=== PATIENT | male | born 1945 | race Caucasian/White ===

== ENCOUNTER 2019-08-16 12:24 | Inpatient (IN) ==
[2019-08-16 13:09] LABS: Basophils # (auto) 0.02 K/uL (0-0.2); Basophils % (auto) 0.2 %; Eosinophils # (auto) 0.19 K/uL (0-0.5); Hematocrit (blood only) 40.4 % (42-52); Hemoglobin 14.5 g/dL (14.0-18.0); Immature Granulocytes # (auto) 0.02 K/uL (0.00-0.02); Immature Granulocytes % (auto) 0.2 %; Lymphocytes # (auto) 2.05 K/uL (1.2-3.4); Lymphocytes % (auto) 21.1 %; Mean Corpuscular Hemoglobin 32.9 pg (25-34); Mean Corpuscular Hgb Conc 35.9 g/dL (32-36); Mean Corpuscular Volume 91.6 fL (80-100); Monocytes # (auto) 0.85 K/uL (0.11-0.59); Monocytes % (auto) 8.8 %; Neutrophils # (auto) 6.57 K/uL (1.4-6.5); Neutrophils % (auto) 67.7 %; Platelet Count 228 K/uL (130-400); RDW Coefficient of Variation 12.7 % (11.5-14.5); RDW Standard Deviation 42.9 fL (36.4-46.3); Red Blood Count 4.41 M/uL (4.7-6.1)
--- NOTE | 2019-08-16 13:18 | XRay Report ---
XR chest 1V portable HISTORY: Atypical Chest Pain COMPARISON: None. FINDINGS: The lungs are clear. Cardiac silhouette is mildly enlarged. No pleural effusions. No pneumo thorax. IMPRESSION: Mild cardiomegaly. Otherwise, no acute process within the chest. Electronically signed by: Clemente Jaramillo M.D. 08/16/2019 1:16 PM
[2019-08-16 13:19] LABS: Partial Thromboplastin Ratio 0.9; Partial Thromboplastin Time 24.5 Seconds (21.0-31.0)
[2019-08-16 13:20] LABS: Alanine Aminotransferase 43 U/L (12-78); Albumin Level 3.8 gm/dl (3.4-5.0); Aspartate Aminotransferase 22 U/L (15-37); BUN Creatinine Ratio 12.8 (10-20); Blood Urea Nitrogen 21 mg/dl (7-18); Calcium 8.5 mg/dl (8.5-10.1); Carbon Dioxide 25 mmol/L (21-32); Chloride 106 mmol/L (98-107); Creatinine Clr Calc Pharmacy 41.9 ml/min; Est GFR (African American) 47.7; Est GFR (Non-African American) 41.2; Glucose 121 mg/dl (70-99); Potassium 3.9 mmol/L (3.5-5.1); Sodium 134 mmol/L (136-145)
[2019-08-16 13:25] LABS: Albumin Globulin Ratio 1.2 (0.9-2); Alkaline Phosphatase 97 U/L (45-117); Bilirubin,Total 0.4 mg/dl (0.2-1); Globulin 3.3 gm/dl (2.5-4.0); Total Protein 7.1 gm/dl (6.4-8.2); Troponin I < 0.015 ng/ml (0-0.045)
[2019-08-16 13:37] LABS: Magnesium 2.2 mg/dl (1.8-2.4); Phosphorus 2.8 mg/dl (2.5-4.9)
[2019-08-16] MEDS ORDERED: GI COCKTAIL ED USE PO STA (15:04)
--- NOTE | 2019-08-16 15:39 | Emergency Department Note ---
Entered by Sammie Senior acting as a scribe for History of Present Illness General Chief complaint: Chest Pain Time Seen by Provider: 08/16/19 13:09 Source: patient History of Present Illness Onset (ago): day(s) 4 Location: chest Pain Consistency: + other (persistent) Maximum Pain Intensity: 5 Quality: + other (pressure) Associated symptoms: + denies other symptoms (diaphoresis, fever, chills, cough, congestion, nausea, vomiting, diarrhea, changes in appetite, or decrease in fluid uptake) and + other (shortness of breath with exertion, dizziness, lightheadedness) The patient is a 74 year old male that is presenting to the Emergency Room with complaints of persistent chest pressure that started 3-4 days ago. The patient reports that the pain worsened this morning which prompted him to come to the ED. He notes that he has been short of breath with exertion for the past 2 months. He denies any lifestyle changes prior to this. He denies any diaphoresis during these episodes. He states that he has been intermittently dizzy and lightheaded over the past month. He denies any recent fever, chills, cough, congestion, nausea, vomiting, diarrhea, changes in appetite, or decrease in fluid uptake. The patient reports that he has a history of an enlarged aorta. He notes that he had a US 5 days ago which showed that it was stable. He states that he is followed by Dr. Jordan, Cardiology. He denies any blood thinner use other than a baby aspirin daily. He denies any other significant heart history. He notes that he has not talked to his PCP about any of his symptoms. The patient reports that he takes Omeprazole for a history of GERD, and he denies that his current symptoms resemble past episodes of acid reflux. Home Medications Home Medications Medication Instructions Recorded Confirmed Type acetaminophen [Tylenol] 650 mg PO HS PRN 08/16/19 08/16/19 History aspirin 81 mg PO DAILY 08/16/19 08/16/19 History carvedilol [Coreg] 3.125 mg PO PM 08/16/19 08/16/19 History finasteride [Proscar] 5 mg PO HS 08/16/19 08/16/19 History lactobacillus combination no.4 3,000 mmu cells PO DAILY 08/16/19 08/16/19 History [Probiotic] lisinopril [Prinivil] 20 mg PO QAM 08/16/19 08/16/19 History irjmxcja-raz-HO-lycopen-lutein 1 tab PO DAILY 08/16/19 08/16/19 History [Centrum Silver Men] omeprazole 20 mg PO PM 08/16/19 08/16/19 History polyethylene glycol 3350 [Miralax] 17 g PO DAILY PRN 08/16/19 08/16/19 History pravastatin [Pravachol] 40 mg PO HS 08/16/19 08/16/19 History terazosin 5 mg PO HS 08/16/19 08/16/19 History Allergies Allergy/AdvReac Type Severity Reaction Status Date / Time morphine Allergy Unknown DECREASED Verified 08/16/19 14:43 BP Sulfa (Sulfonamide Allergy Unknown SICK, Verified 08/16/19 14:43 Antibiotics) FATIGUE Past Med/Surg History Medical History Aneurysm, ascending aorta (Chronic) 4.5 cm per [facility] echo 08/11/19 Benign prostatic hyperplasia (Chronic) GERD (gastroesophageal reflux disease) (Chronic) Dyslipidemia (Chronic) Hypertension (Chronic) Esophageal dysmotility (Chronic 02/23/12) Family History Mother Heart disease Breast cancer Father Heart disease Social History Preferred Language: Fijian Communication Ability: Effective Beliefs That Will Affect Care: None marital status: Current Living Situation: Spouse current occupational status: retired Other Information That Helps Us Care for You: No Feels Safe at Home: Yes Safety Concerns: Feels Safe At This Time Smoking Status: Former smoker Hx Alcohol Use: No Hx Substance Use: No Review of Systems See HPI for pertinent positives & negatives. and A total of 10 systems reviewed and were otherwise negative Physical Exam Vital Signs Vital Signs - 24 hr 08/16/19 12:33 08/16/19 12:53 08/16/19 12:56 Temperature 36.8 C Temperature Source Oral Sepsis Recent Fever Within 48 Hours No Sepsis New/Unexplained Change in Mental Status No Sepsis Action Taken by Nursing No Action Required Pulse Rate 96 H 90 Pulse Rate [Apical] Respiratory Rate 20 22 20 Respiratory Effort / Characteristics Non-Labored Spontaneous Blood Pressure 140/93 108/78 Blood Pressure [Left Arm] Blood Pressure Mean 108 88 Blood Pressure Mean [Left Arm] Blood Pressure Position Lying Pulse Oximetry 97 Oxygen Delivery Method Room Air 08/16/19 13:00 08/16/19 13:03 08/16/19 13:10 Temperature Temperature Source Sepsis Recent Fever Within 48 Hours Sepsis New/Unexplained Change in Mental Status Sepsis Action Taken by Nursing Pulse Rate 90 91 H Pulse Rate [Apical] 90 Respiratory Rate 19 Respiratory Effort / Characteristics Blood Pressure 135/81 Blood Pressure [Left Arm] 135/81 Blood Pressure Mean 99 Blood Pressure Mean [Left Arm] 99 Blood Pressure Position Pulse Oximetry 95 Oxygen Delivery Method 08/16/19 13:20 08/16/19 13:30 08/16/19 13:40 Temperature Temperature Source Sepsis Recent Fever Within 48 Hours Sepsis New/Unexplained Change in Mental Status Sepsis Action Taken by Nursing Pulse Rate 92 H 88 Pulse Rate [Apical] Respiratory Rate 21 14 25 H Respiratory Effort / Characteristics Blood Pressure Blood Pressure [Left Arm] Blood Pressure Mean Blood Pressure Mean [Left Arm] Blood Pressure Position Pulse Oximetry Oxygen Delivery Method 08/16/19 13:50 08/16/19 14:00 08/16/19 14:10 Temperature Temperature Source Sepsis Recent Fever Within 48 Hours Sepsis New/Unexplained Change in Mental Status Sepsis Action Taken by Nursing Pulse Rate 87 88 86 Pulse Rate [Apical] Respiratory Rate 22 27 H 23 Respiratory Effort / Characteristics Blood Pressure 117/82 Blood Pressure [Left Arm] Blood Pressure Mean 93 Blood Pressure Mean [Left Arm] Blood Pressure Position Pulse Oximetry Oxygen Delivery Method 08/16/19 14:24 08/16/19 14:30 08/16/19 14:40 Temperature Temperature Source Sepsis Recent Fever Within 48 Hours Sepsis New/Unexplained Change in Mental Status Sepsis Action Taken by Nursing Pulse Rate 82 88 74 Pulse Rate [Apical] Respiratory Rate 22 18 Respiratory Effort / Characteristics Blood Pressure Blood Pressure [Left Arm] Blood Pressure Mean Blood Pressure Mean [Left Arm] Blood Pressure Position Pulse Oximetry Oxygen Delivery Method 08/16/19 14:50 08/16/19 15:00 08/16/19 15:10 Temperature Temperature Source Sepsis Recent Fever Within 48 Hours Sepsis New/Unexplained Change in Mental Status Sepsis Action Taken by Nursing Pulse Rate 82 79 75 Pulse Rate [Apical] Respiratory Rate 19 15 21 Respiratory Effort / Characteristics Blood Pressure Blood Pressure [Left Arm] Blood Pressure Mean Blood Pressure Mean [Left Arm] Blood Pressure Position Pulse Oximetry Oxygen Delivery Method 08/16/19 15:20 08/16/19 15:30 08/16/19 15:40 Temperature Temperature Source Sepsis Recent Fever Within 48 Hours Sepsis New/Unexplained Change in Mental Status Sepsis Action Taken by Nursing Pulse Rate 83 88 Pulse Rate [Apical] Respiratory Rate 15 20 23 Respiratory Effort / Characteristics Blood Pressure Blood Pressure [Left Arm] Blood Pressure Mean Blood Pressure Mean [Left Arm] Blood Pressure Position Pulse Oximetry Oxygen Delivery Method 08/16/19 15:50 Temperature Temperature Source Sepsis Recent Fever Within 48 Hours Sepsis New/Unexplained Change in Mental Status Sepsis Action Taken by Nursing Pulse Rate 90 Pulse Rate [Apical] Respiratory Rate 13 Respiratory Effort / Characteristics Blood Pressure Blood Pressure [Left Arm] Blood Pressure Mean Blood Pressure Mean [Left Arm] Blood Pressure Position Pulse Oximetry Oxygen Delivery Method GENERAL: Awake, alert, well-appearing, in no distress HENT: Normocephalic, atraumatic. Oropharynx with dry mucous membranes and otherwise unremarkable. EYES: Normal conjunctiva. Sclera non-icteric. NECK: Supple. No nuchal rigidity. FROM. No JVD. RESPIRATORY: CTA bilaterally. CARDIAC: Regular rate, normal rhythm. Extremities warm and well perfused. Pulses equal. ABDOMEN: Soft, non-distended. No tenderness to palpation. No rebound or guarding. No masses. RECTAL: Deferred. MUSCULOSKELETAL: Chest examination reveals no tenderness. The back is symmetrical on inspection without obvious abnormality. There is no CVA tenderness to palpation. No joint edema. LOWER EXTREMITIES: Calves are equal size bilaterally and non-tender. No edema. No discoloration. NEURO: Normal sensorium. No sensory or motor deficits noted. SKIN: No rash or jaundice noted. Course 1408:The patient was evaluated in room C08. A complete history and physical examination was performed. 1454: I discussed the patients case with Kelsey Ruby, who will evaluate the patient for further management and care. 1515: Upon reevaluation, the patient is resting comfortably. I discussed labo ratory and radiographic results with the patient. He verbalized agreement of the treatment plan. The patient will be evaluated for further management and care. Administered Medications Carvedilol (Coreg) 3.125 mg PO DAILY@17 JUN Stop: 09/15/19 17:50 Last Admin: 08/16/19 20:40 Dose: 3.125 mg Documented by: [id number] Finasteride (Proscar) 5 mg PO HS JUN Stop: 09/15/19 20:59 Last Admin: 08/16/19 20:08 Dose: 5 mg Documented by: [id number] Heparin Sodium (Porcine) (Heparin Sodium (Porcine)) 5,000 units SQ Q12 JUN Stop: 09/15/19 20:59 Last Admin: 08/16/19 20:09 Dose: 5,000 units Documented by: [id number] Cosigned by: [id number] Sodium Chloride (Nss 1000ml) 1,000 mls @ 80 mls/hr IV .[id number] JUN Stop: 09/15/19 20:59 Last Admin: 08/16/19 20:09 Dose: 80 mls/hr Documented by: [id number] Pantoprazole Sodium (Protonix) 40 mg PO QAM JUN Stop: 09/15/19 17:50 Last Admin: 08/16/19 20:08 Dose: 40 mg Documented by: [id number] Pravastatin Sodium (Pravachol) 40 mg PO HS JUN Stop: 09/15/19 20:59 Last Admin: 08/16/19 20:08 Dose: 40 mg Documented by: [id number] Terazosin HCl (Hytrin) 5 mg PO HS JUN Stop: 09/15/19 20:59 Last Admin: 08/16/19 20:08 Dose: 5 mg Documented by: [id number] Discontinued Medications Al Hydrox/Mg Hydrox/Simethicone () 1 dose PO NOW STA Stop: 08/16/19 15:05 Last Admin: 08/16/19 15:10 Dose: 1 dose Documented by: [id number] Medical Decision Making Differential Diagnosis Differential diagnoses includes but is not limited to acute coronary syndrome, myocardial infarction, pericarditis, pulmonary embolus, aortic dissection, pneumonia, pneumothorax, musculoskeletal, shingles, esophageal. Medical Records Attestation: I reviewed the patient's medical records. Home Medications Current Medication List: was personally reviewed by me Laboratory Data Attestation: I reviewed the patient's lab results. Result diagrams: 08/16/19 12:57 08/16/19 12:57 Lab Results 08/16/19 08/16/19 08/16/19 Range/Units 12:57 12:57 12:57 WBC 9.70 (4.8-10.8) K/uL RBC 4.41 L (4.7-6.1) M/uL Hgb 14.5 (14.0-18.0) g/dL Hct 40.4 L (42-52) % MCV 91.6 (80-100) fL MCH 32.9 (25-34) pg MCHC 35.9 (32-36) g/dL RDW Std Deviation 42.9 (36.4-46.3) fL RDW Coeff of Ibrahima 12.7 (11.5-14.5) % Plt Count 228 (130-400) K/uL MPV 9.0 (7.4-10.4) fL Immature Gran % (Auto) 0.2 % Neut % (Auto) 67.7 % Lymph % (Auto) 21.1 % Graham % (Auto) 8.8 % Eos % (Auto) 2.0 % Baso % (Auto) 0.2 % Immature Gran # (Auto) 0.02 (0.00-0.02) K/uL Neut # (Auto) 6.57 H (1.4-6.5) K/uL Lymph # (Auto) 2.05 (1.2-3.4) K/uL Graham # (Auto) 0.85 H (0.11-0.59) K/uL Eos # (Auto) 0.19 (0-0.5) K/uL Baso # (Auto) 0.02 (0-0.2) K/uL PT 10.0 (9.0-12.0) Seconds INR 1.0 (0.9-1.1) APTT 24.5 (21.0-31.0) Seconds PTT Ratio 0.9 Sodium 134 L (136-145) mmol/L Potassium 3.9 (3.5-5.1) mmol/L Chloride 106 (98-107) mmol/L Carbon Dioxide 25 (21-32) mmol/L Anion Gap 3.0 (3-11) BUN 21 H (7-18) mg/dl Creatinine 1.63 H (0.6-1.4) mg/dl Est Cr Clr Drug Dosing 41.9 ml/min Est GFR ( Amer) 47.7 Est GFR (Non-Af Amer) 41.2 BUN/Creatinine Ratio 12.8 (10-20) Glucose 121 H (70-99) mg/dl Calcium 8.5 (8.5-10.1) mg/dl Phosphorus (2.5-4.9) mg/dl Magnesium (1.8-2.4) mg/dl Total Bilirubin 0.4 (0.2-1) mg/dl AST 22 (15-37) U/L ALT 43 (12-78) U/L Alkaline Phosphatase 97 (45-117) U/L Troponin I < 0.015 (0-0.045) ng/ml Total Protein 7.1 (6.4-8.2) gm/dl Albumin 3.8 (3.4-5.0) gm/dl Globulin 3.3 (2.5-4.0) gm/dl Albumin/Globulin Ratio 1.2 (0.9-2) 08/16/19 Range/Units 12:57 WBC (4.8-10.8) K/uL RBC (4.7-6.1) M/uL Hgb (14.0-18.0) g/dL Hct (42-52) % MCV (80-100) fL MCH (25-34) pg MCHC (32-36) g/dL RDW Std Deviation (36.4-46.3) fL RDW Coeff of Ibrahima (11.5-14.5) % Plt Count (130-400) K/uL MPV (7.4-10.4) fL Immature Gran % (Auto) % Neut % (Auto) % Lymph % (Auto) % Graham % (Auto) % Eos % (Auto) % Baso % (Auto) % Immature Gran # (Auto) (0.00-0.02) K/uL Neut # (Auto) (1.4-6.5) K/uL Lymph # (Auto) (1.2-3.4) K/uL Graham # (Auto) (0.11-0.59) K/uL Eos # (Auto) (0-0.5) K/uL Baso # (Auto) (0-0.2) K/uL PT (9.0-12.0) Seconds INR (0.9-1.1) APTT (21.0-31.0) Seconds PTT Ratio Sodium (136-145) mmol/L Potassium (3.5-5.1) mmol/L Chloride (98-107) mmol/L Carbon Dioxide (21-32) mmol/L Anion Gap (3-11) BUN (7-18) mg/dl Creatinine (0.6-1.4) mg/dl Est Cr Clr Drug Dosing ml/min Est GFR ( Amer) Est GFR (Non-Af Amer) BUN/Creatinine Ratio (10-20) Glucose (70-99) mg/dl Calcium (8.5-10.1) mg/dl Phosphorus 2.8 (2.5-4.9) mg/dl Magnesium 2.2 (1.8-2.4) mg/dl Total Bilirubin (0.2-1) mg/dl AST (15-37) U/L ALT (12-78) U/L Alkaline Phosphatase (45-117) U/L Troponin I (0-0.045) ng/ml Total Protein (6.4-8.2) gm/dl Albumin (3.4-5.0) gm/dl Globulin (2.5-4.0) gm/dl Albumin/Globulin Ratio (0.9-2) Imaging Data Radiologist's Impression: Radiology results as stated below per my review and the radiologist's interpretation: XR chest 1V portable HISTORY: Atypical Chest Pain COMPARISON: None. FINDINGS: The lungs are clear. Cardiac silhouette is mildly enlarged. No pleural effusions. No pneumothorax. IMPRESSION: Mild cardiomegaly. Otherwise, no acute process within the chest. Electronically signed by: Clemente Jaramillo M.D. 08/16/2019 1:16 PM ECG Data Attestation: I personally reviewed and interpreted this ECG as follows: Indication: chest pain Rate (beats per minute): 88 Rhythm: normal sinus Findings: + other (left anterior fascicular block, QTC 423, QRS 86); no PAC, no PVC, no ST depression, no ST elevation, no acute ischemic change and no ectopy Blood Pressure Blood Pressure Findings: Elevated blood pressure Blood Pressure Disposition: Referred to patients primary care provider MDM Narrative The patient is a pleasant 74-year-old gentleman with a past medical history of aortic enlargement, hypertension, hyperlipidemia who presents emergency department with constant chest pressure for the past 4 days in the setting of reporting approximately 2 months of worsening dyspnea and chest pressure on exertion per hpi. Of note, the patient did have a recent surveillance echo for surveillance of his aorta which was stable with a mildly enlarged aortic root at 4.0 cm and ascending aorta moderate the enlarged at 4.5 cm. His EF was normal with mildly abnormal (grade 1) left ventricular diastolic function. Of note, the patient does have a history of reflux which he reports does not feel like this usually. On arrival patient is no acute distress, afebrile with stable vital signs. This time the patient reports marginal presence of his chest pressure. Exam is unremarkable. EKG with left anterior fascicular block with QRS of 86. No overt acute ischemia. QRS is 86 with QTC of 423. Morphology of EKG is different from our last EKG in 2016. Chest x-ray negative for acute p rocess. BBC, hemoglobin, platelets within normal limits. Chemistry without acidosis. Creatinine 1.6 in the setting of history of CKD without recent values for comparison in our EMR. Troponin negative/undetectable in the setting of patient's report of constant pressure over the past 4 days. Electrolytes and LFTs unremarkable. Patient did report subtle "presence" of his chest pressure that was barely noticeable, which did not seem cardiac and was give trial of GI cocktail considering his h/o GERD. Otherwise, Heart score 7, high risk, thus reasonable to proceed with admission. I did discuss with the patient the concern surrounding his relatively new (over the past 2 months) but progressive exertional shortness of breath and chest pressure that he should be admitted to the hospital for further cardiac evaluation. Patient was agreeable with this. Case was discussed with Dr. Ly, [facility] hospitalist, who will evaluate the patient for admission. Impression & Plan Exertional chest pain, Enlarged aorta, History of hypertension, Left anterior fascicular block Discharge Plan Visit Data *Final* Discharge Date/Time: 08/16/19 17:20 Chief Complaint: Chest Pain ED Provider: Grant Green Discharge Problem: Exertional chest pain, Enlarged aorta, History of hypertension, Left anterior fascicular block Patient Disposition: Admitted As Inpatient Discharge Instructions Interventions: ED Discharge Assessment Last Done: 08/16/19 17:20 The scribe's documentation has been prepared under my direction and personally reviewed by me in its entirety. I confirm that the note above accurately reflects all work, treatment, procedures, and medical decision making performed by me.
--- NOTE | 2019-08-16 15:58 | History & Physical Report ---
Date of Service August 16, 2019 Assessment & Plan (1) Chest pain: Patient has been experiencing chest pain for at least couple weeks and perhaps longer. Pattern of symptoms sometimes seems to be related to exertion, but not always. History of esophageal dysmotility and GERD which could be contributing factors. However, patient has multiple risk factors for ischemic heart disease including hypertension and dyslipidemia. No acute changes on EKG. Troponin I in ED normal. Patient has known aneurysm of ascending aorta, but symptoms do not suggest dissection, carotid and peripheral pulses are symmetric, and echocardiogram last week was stable. Pain is not pleuritic in nature and symptoms do not suggest pulmonary embolism. Check serial cardiac markers. Check lipid profile. Consult Cardiology. Consider further GI evaluation once cardiac issues are addressed. (2) Aneurysm, ascending aorta: Followed by Cardiology. Echo last week showed stable aneurysm measuring 4.5 cm. Continue management of blood pressure and lipids. Ongoing follow-up per Cardiology. (3) GERD (gastroesophageal reflux disease): History of GERD. Continue PPI. (4) Esophageal dysmotility: History of esophageal dysmotility, noted in 2011. Current symptoms may or may not be related. Consider follow-up evaluation and perhaps [employer] SOLUTION ARCHITECT evaluation/recommendations regarding diet and swallowing technique. (5) Hypertension: Continue carvedilol, lisinopril, terazosin. (6) Dyslipidemia: Check lipid profile. Continue pravastatin. (7) Benign prostatic hyperplasia: Continue terazosin and finasteride. (8) DVT prophylaxis: SQ heparin. Ambulate. (9) Discharge planning issues: Anticipated discharge to home. Family Medicine follow-up with Dr. Lopez. Cardiology follow-up with Dr. Jordan. History of Present Illness Chief Complaint: chest pressure Primary Care Provider: Joe Lopez MD 74-year-old male followed by Dr. Lopez for Family Medicine and Dr. Jordan for Cardiology. History of hypertension, dyslipidemia, aneurysm of ascending aorta, GERD, and esophageal dysmotility. He has been experiencing chest pressure for the last 2 weeks or so. Chest pressure described as non-radiating midsternal pressure, sometimes associated with exertion, and sometimes not. Feels dyspneic at times, and dyspnea seems worse when he is experiencing the chest pressure. No associated palpitations, nausea, vomiting, diaphoresis. Symptoms not obviously related to food. He increased his omeprazole from 3 times a week dosing to every day, but continued to have symptoms. This morning he noticed some chest pressure when he awakened from sleep. He drank a cup of coffee and then went shopping. After returning from shopping, he noticed worsening chest pressure associated with some dyspnea and lightheadedness. He came to the ED for evaluation. There, he received a GI cocktail without much immediate improvement of his symptoms. At the time of my assessment, the chest pressure was significantly improved, rated as 2/10. An echocardiogram was performed at [facility] on 08/11/2019 and demonstrated aortic root measuring 4.0 cm, stable aneurysm of aortic aneurysm measuring 4.5 cm, LVEF of 60/64%, and grade 1 diastolic dysfunction. Allergies Allergy/AdvReac Type Severity Reaction Status Date / Time morphine Allergy Unknown DECREASED Verified 08/16/19 14:43 BP Sulfa (Sulfonamide Allergy Unknown SICK, Verified 08/16/19 14:43 Antibiotics) FATIGUE Home Medications Home Medications Medication Instructions Recorded Confirmed Type acetaminophen [Tylenol] 650 mg PO HS PRN 08/16/19 08/16/19 History aspirin 81 mg PO DAILY 08/16/19 08/16/19 History carvedilol [Coreg] 3.125 mg PO PM 08/16/19 08/16/19 History finasteride [Proscar] 5 mg PO HS 08/16/19 08/16/19 History lactobacillus combination no.4 3,000 mmu cells PO DAILY 08/16/19 08/16/19 History [Probiotic] lisinopril [Prinivil] 20 mg PO QAM 08/16/19 08/16/19 History goaowoyu-yvd-OX-lycopen-lutein 1 tab PO DAILY 08/16/19 08/16/19 History [Centrum Silver Men] omeprazole 20 mg PO PM 08/16/19 08/16/19 History polyethylene glycol 3350 [Miralax] 17 g PO DAILY PRN 08/16/19 08/16/19 History pravastatin [Pravachol] 40 mg PO HS 08/16/19 08/16/19 History terazosin 5 mg PO HS 08/16/19 08/16/19 History Past Med/Surg History Medical History Aneurysm, ascending aorta (Chronic) 4.5 cm per [facility] echo 08/11/19 Benign prostatic hyperplasia (Chronic) GERD (gastroesophageal reflux disease) (Chronic) Dyslipidemia (Chronic) Hypertension (Chronic) Esophageal dysmotility (Chronic 02/23/12) Family History Mother Heart disease Breast cancer Father Heart disease Social History Preferred Language: Greek Communication Ability: Effective Beliefs That Will Affect Care: None marital status: Current Living Situation: Spouse current occupational status: retired Other Information That Helps Us Care for You: No Feels Safe at Home: Yes Safety Concerns: Feels Safe At This Time Smoking Status: Former smoker Hx Alcohol Use: No Hx Substance Use: No Review of Systems Constitutional: no fever and no weight loss Eyes: no diplopia and no worsening vision Ear, Nose, Mouth, Throat: + nasal congestion; no sore throat Respiratory: + dyspnea; no cough Cardiovascular: as per Subjective / HPI Gastrointestinal: no nausea, no vomiting, no constipation, no diarrhea/loose stools, no blood in stools and no melena Musculoskeletal: + joint pain; no myalgia Integumentary: no rash and no new lesions Neurologic: no headache(s) Endocrine: no polydipsia and no polyuria Hematologic / Lymphatic: + easy bruising; no easy bleeding and no lymphadenopathy Physical Exam Constitutional: WD/WN, vitals as above no acute distress Eyes: PERRL, conjunctivae normal, anicteric sclerae ENMT: external ear and nose normal, oropharynx normal Mouth: + dentition abnormality ( edentulous) Neck: trachea midline, no thyromegaly Respiratory: normal respiratory effort, lungs clear to auscultation Cardiovascular: Rate/Rhythm: regular rate Heart Sounds: no gallop, no murmur and no cardiac rub Vessels: no JVD Extremities: normal capillary refill (toes < 2 sec); no calf tenderness and no edema carotid and peripheral pulses intact and symmetric Gastrointestinal (Abdomen): normal bowel sounds, soft, nontender, no hepatosplenomegaly Musculoskeletal: Head/Neck/Chest: neck supple Extremities: strength 5/5 throughout; no cyanosis and no clubbing Skin: no rashes, warm and dry Neurologic: PERRL, EOMI no facial palsy no dysarthria or aphasia patellar DTR's 1/2 bilat Psychiatric: Orientation: alert and oriented x 3 Affect: euthymic affect Lymphatic: no cervical lymphadenopathy Results & Data Vital Signs (Past 12 Hours) Vital Signs Temp Pulse Pulse Resp BP BP Pulse Ox 08/16/19 15:30 83 20 08/16/19 15:20 15 08/16/19 15:10 75 21 08/16/19 15:00 79 15 08/16/19 14:50 82 19 08/16/19 14:40 74 08/16/19 14:30 88 18 08/16/19 14:24 82 22 08/16/19 14:10 86 23 08/16/19 14:00 88 27 H 117/82 08/16/19 13:50 87 22 08/16/19 13:40 88 25 H 08/16/19 13:30 92 H 14 08/16/19 13:20 21 08/16/19 13:10 91 H 08/16/19 13:03 90 19 135/81 95 08/16/19 13:00 90 135/81 08/16/19 12:56 20 108/78 08/16/19 12:53 90 22 08/16/19 12:33 36.8 C 96 H 20 140/93 97 Laboratory Results Laboratory Results - last 24 hr 08/16/19 08/16/19 08/16/19 12:57 12:57 12:57 WBC 9.70 RBC 4.41 L Hgb 14.5 Hct 40.4 L MCV 91.6 MCH 32.9 MCHC 35.9 RDW Std Deviation 42.9 RDW Coeff of Ibrahima 12.7 Plt Count 228 MPV 9.0 Immature Gran % (Auto) 0.2 Neut % (Auto) 67.7 Lymph % (Auto) 21.1 Leslie % (Auto) 8.8 Eos % (Auto) 2.0 Baso % (Auto) 0.2 Immature Gran # (Auto) 0.02 Neut # (Auto) 6.57 H Lymph # (Auto) 2.05 Leslie # (Auto) 0.85 H Eos # (Auto) 0.19 Baso # (Auto) 0.02 PT 10.0 INR 1.0 APTT 24.5 PTT Ratio 0.9 Sodium 134 L Potassium 3.9 Chloride 106 Carbon Dioxide 25 Anion Gap 3.0 BUN 21 H Creatinine 1.63 H Est Cr Clr Drug Dosing 41.9 Est GFR ( Amer) 47.7 Est GFR (Non-Af Amer) 41.2 BUN/Creatinine Ratio 12.8 Glucose 121 H Calcium 8.5 Phosphorus Magnesium Total Bilirubin 0.4 AST 22 ALT 43 Alkaline Phosphatase 97 Troponin I < 0.015 Total Protein 7.1 Albumin 3.8 Globulin 3.3 Albumin/Globulin Ratio 1.2 08/16/19 08/16/19 12:57 18:54 WBC RBC Hgb Hct MCV MCH MCHC RDW Std Deviation RDW Coeff of Ibrahima Plt Count MPV Immature Gran % (Auto) Neut % (Auto) Lymph % (Auto) Leslie % (Auto) Eos % (Auto) Baso % (Auto) Immature Gran # (Auto) Neut # (Auto) Lymph # (Auto) Leslie # (Auto) Eos # (Auto) Baso # (Auto) PT INR APTT PTT Ratio Sodium Potassium Chloride Carbon Dioxide Anion Gap BUN Creatinine Est Cr Clr Drug Dosing Est GFR ( Amer) Est GFR (Non-Af Amer) BUN/Creatinine Ratio Glucose Calcium Phosphorus 2.8 Magnesium 2.2 Total Bilirubin AST ALT Alkaline Phosphatase Troponin I < 0.015 Total Protein Albumin Globulin Albumin/Globulin Ratio Diagnostic Findings Chest x-ray reviewed by the undersigned and formally interpreted by Radiology. Borderline cardiomegaly, no infiltrates, effusions, CHF. ECG Additional Comments: EKG performed at 1233 reviewed and demonstrated normal sinus rhythm at 90/minute, left anterior fascicular block, poor R wave progression, intraventricular conduction delay. Code Status & VTE Plan Code Status Resuscitation status discussed with patient. He does not have a living will. He would like resuscitation attempted in the event of cardiopulmonary arrest if there is a reasonable chance of a meaningful recovery. VTE Prophylaxis Plan VTE Prophylaxis will be ordered: Yes
[2019-08-16] MEDS ORDERED: POLYETHYLENE (MIRALAX) 17 GM PACK PO PRN (17:51)
[2019-08-16] MEDS ORDERED: ACETAMINOPHEN 325 MG TAB PO PRN (17:51)
[2019-08-16] MEDS ORDERED: NON-FORMULARY MEDICATION (Acetaminophen [Tylenol] 650 MG) PO PRN (17:51)
[2019-08-16] MEDS ORDERED: ALUMINUM/MAGNESIUM SUSP 30 ML UDC PO PRN (17:51)
[2019-08-16] MEDS ORDERED: NITROGLYCERIN SL 0.4 MG/TAB TAB SL PRN (17:51)
--- NOTE | 2019-08-16 18:55 | Cardiology Consultation ---
Date of Consultation August 16, 2019 Assessment & Plan (1) Exertional chest pain: Patient describes chest "pressure". Also when he was in the emergency room there was concern that this was exertional, per my discussion with the patient sounds like this is waxed and waned for a number of weeks, and is associated with exertion and also persist for long intervals when he is resting. It does not appear to be associated with meals, diet, or position as compared to being supine or sitting up. Has had no recent infectious symptoms. She is an echocardiogram a few days ago with stable findings. At this time we will continue to trend his cardiac enzymes. Plan repeat EKG tomorrow in the morning. We will keep n.p.o. after midnight for further ischemic work-up. (2) Enlarged aorta: The patient does have a history of moderate a sending aortic enlargement, his symptoms do not sound suggestive of a dissection. He is in no acute distress, symptoms have waxed and waned for hours. His blood pressure is well controlled. I would start him on gentle IV fluids, if CT scanning or, cardiac catheterization become indicated, his kidneys will therefore be optimized. Prior to hospital blood pressure and statin medication. His most recent outpatient lipid panel in November 2018 revealed an LDL cholesterol of 77 mg/dL. History of Present Illness Attending Physician: Heber Ly MD History of Present Illness Sekou Latham is a 74 year old male seen in cardiology consultation per the request of Dr Ly for the evaluation of chest discomfort. 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 Patient is followed for a ascending thoracic aortic aneurysm, most recent measurement of the proximal ascending aorta by echocardiogram performed 08/11/2019, coronary atherosclerosis noted on CT scanning, with nonischemic nuclear stress test performed 06/24/2018, hypertension, stage III chronic kidney disease, and dyslipidemia. At the time of my assessment in room 201 the patient was accompanied by his spouse as well as his extended family. He was in good spirits. He was in no acute distress. Him and his describe that he has been having on and off again chest "pressure "for a month. She has been very concerned about him. This morning, he woke up and initially felt well with very mild intensity chest discomfort. He had coffee and some juice and he went to the grocery store. When he got home, he experienced a severe episode of 10/10 intensity chest pressure with onset at approximately 10:00 in the morning. He went and laid down but this did not help. The pressure persisted despite resting. He became concerned enough that he had his grandson drive him to the hospital. His initial vital signs were taken at 12:23 PM and his blood pressure is 140/93 , subsequent serial measurements have been within normal limits on serial measurements. An EKG was performed at 12:33 PM revealing sinus rhythm at 80 bpm with findings of a left anterior fascicular block. Compared to a prior tracing performed as an outpatient at [facility] dated 06/18/2018, there is been no significant interval change. Repeat tracing was performed just prior to my arrival this evening at 1830 once again revealing normal sinus rhythm 81 bpm with left anterior fascicular block. Subtle T wave inversion is noted in lead aVL, with the 2018 EKG revealing T wave flattening in this lead. The patient's initial troponin I was undetectable, and his second measurement was just obtained approximately 10 minutes ago with results of which are pending. Patient has a strong family history of coronary heart disease with his son having had coronary artery bypass graft surgery. Past Medical History: 1. Ascending aortic aneurysm, 4.5 cm on recent echocardiogram 2. Hypertension 3. Dyslipidemia 4. Irritable bowel syndrome 5. Benign prostatic hypertrophy 6. Esophageal reflux disease Past Surgical History: 1. Past colonoscopy most recent of which took place in 2014 2. 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 Allergies Allergy/AdvReac Type Severity Reaction Status Date / Time morphine Allergy Unknown DECREASED Verified 08/16/19 14:43 BP Sulfa (Sulfonamide Allergy Unknown SICK, Verified 08/16/19 14:43 Antibiotics) FATIGUE Home Medications Home Medications Medication Instructions Recorded Confirmed Type acetaminophen [Tylenol] 650 mg PO HS PRN 08/16/19 08/16/19 History aspirin 81 mg PO DAILY 08/16/19 08/16/19 History carvedilol [Coreg] 3.125 mg PO PM 08/16/19 08/16/19 History finasteride [Proscar] 5 mg PO HS 08/16/19 08/16/19 History lactobacillus combination no.4 3,000 mmu cells PO DAILY 08/16/19 08/16/19 History [Probiotic] lisinopril [Prinivil] 20 mg PO QAM 08/16/19 08/16/19 History xptzitsp-ean-LB-lycopen-lutein 1 tab PO DAILY 08/16/19 08/16/19 History [Centrum Silver Men] omeprazole 20 mg PO PM 08/16/19 08/16/19 History polyethylene glycol 3350 [Miralax] 17 g PO DAILY PRN 08/16/19 08/16/19 History pravastatin [Pravachol] 40 mg PO HS 08/16/19 08/16/19 History terazosin 5 mg PO HS 08/16/19 08/16/19 History Patient History Medical History Enlarged aorta (Chronic) Esophageal dysmotility (Acute 02/23/12) Family History Other Family history non-contributory Social History Preferred Language: Icelandic Communication Ability: Effective Beliefs That Will Affect Care: None marital status: Current Living Situation: Spouse current occupational status: retired Other Information That Helps Us Care for You: No Feels Safe at Home: Yes Safety Concerns: Feels Safe At This Time Smoking Status: Former smoker Hx Alcohol Use: No Hx Substance Use: No Review of Systems Review of Systems: All systems reviewed & are unremarkable except as noted in HPI & below Physical Exam Physical Exam: Temp Pulse Resp BP Pulse Ox 36.6 C 95 H 17 129/84 97 08/16/19 17:53 08/16/19 17:53 08/16/19 17:53 08/16/19 17:53 08/16/19 17:53 Constitutional: WD/WN, vitals as above Respiratory: normal respiratory effort, lungs clear to auscultation Cardiovascular: RRR, no murmur, no edema Vessels: no JVD Gastrointestinal (Abdomen): normal bowel sounds, soft, nontender, no hepatosplenomegaly Skin: no rashes, warm and dry Neurologic: PERRL, EOMI, accommodation nl, no face palsy, no dysarthria Psychiatric: A+Ox3, euthymic affect Results & Data Vital Signs (Past 12 Hours) Vital Signs Temp Pulse Pulse Resp BP BP Pulse Ox 08/16/19 17:53 36.6 C 95 H 17 129/84 97 08/16/19 15:50 90 13 08/16/19 15:40 88 23 08/16/19 15:30 83 20 08/16/19 15:20 15 08/16/19 15:10 75 21 08/16/19 15:00 79 15 08/16/19 14:50 82 19 08/16/19 14:40 74 08/16/19 14:30 88 18 08/16/19 14:24 82 22 08/16/19 14:10 86 23 08/16/19 14:00 88 27 H 117/82 08/16/19 13:50 87 22 08/16/19 13:40 88 25 H 08/16/19 13:30 92 H 14 08/16/19 13:20 21 08/16/19 13:10 91 H 08/16/19 13:03 90 19 135/81 95 08/16/19 13:00 90 135/81 08/16/19 12:56 20 108/78 08/16/19 12:53 90 22 08/16/19 12:33 36.8 C 96 H 20 140/93 97 Laboratory Results Cardiac Enzymes 08/16/19 Range/Units 12:57 AST 22 (15-37) U/L Troponin I < 0.015 (0-0.045) ng/ml Coagulation 08/16/19 Range/Units 12:57 PT 10.0 (9.0-12.0) Seconds APTT 24.5 (21.0-31.0) Seconds CBC 08/16/19 Range/Units 12:57 WBC 9.70 (4.8-10.8) K/uL RBC 4.41 L (4.7-6.1) M/uL Hgb 14.5 (14.0-18.0) g/dL Hct 40.4 L (42-52) % Plt Count 228 (130-400) K/uL Neut # (Auto) 6.57 H (1.4-6.5) K/uL Lymph # (Auto) 2.05 (1.2-3.4) K/uL Sequoyah # (Auto) 0.85 H (0.11-0.59) K/uL Eos # (Auto) 0.19 (0-0.5) K/uL Baso # (Auto) 0.02 (0-0.2) K/uL Comprehensive Metabolic Panel 08/16/19 Range/Units 12:57 Sodium 134 L (136-145) mmol/L Potassium 3.9 (3.5-5.1) mmol/L Chloride 106 (98-107) mmol/L Carbon Dioxide 25 (21-32) mmol/L BUN 21 H (7-18) mg/dl Creatinine 1.63 H (0.6-1.4) mg/dl Glucose 121 H (70-99) mg/dl Calcium 8.5 (8.5-10.1) mg/dl AST 22 (15-37) U/L ALT 43 (12-78) U/L Alkaline Phosphatase 97 (45-117) U/L Total Protein 7.1 (6.4-8.2) gm/dl Albumin 3.8 (3.4-5.0) gm/dl Intake and Output 08/16/19 08/16/19 08/16/19 06:59 14:59 22:59 Other: Weight 91.3 kg 89.2 kg Patient Weight 08/17/19 06:59 Weight 89.2 kg Diagnostic Findings Summary of transthoracic echocardiogram performed 08/11/2019 at [facility]: he qualitative LV ejection fraction is 60-64% (normal). The left ventricular diastolic function is mildly abnormal (grade I). The aortic root is mildly enlarged, 4.0 cm. The ascending aorta is moderately enlarged, 4.5 cm. Findings suggest a possible hepatic cyst. Further evaluation recommend if clinically warranted. Compared to prior study of 06/06/2018, there is no significant change. CT of the chest performed 03/15/2016 [facility]: Severe atherosclerosic changes in the coronary arteries noted. Dilatation of the ascending thoracic aorta: 4.2 cm at the aortic root, 3.2 cm at the sinotubular junction, 3.3 cm at the mid ascending aorta 2.9 cm the proximal aortic arch. Stress nuclear imaging June 24, 2018 Myocardial perfusion imaging is normal. Overall left ventricular systolic function was normal without regional wall motion abnormalities. The left ventricular ejection fraction was 69%. There are no prior studies available for comparison. Medications Administered Current Inpatient Medications Acetaminophen (Tylenol) 650 mg PO Q4H PRN PRN Reason: Pain or Fever Stop: 09/15/19 17:50 Al Hydrox/Mg Hydrox/Simethicone (Maalox) 15 ml PO Q4H PRN PRN Reason: Dyspepsia Stop: 09/15/19 17:50 Aspirin (Ecotrin Ectab) 81 mg PO DAILY JUN Stop: 09/16/19 08:59 Carvedilol (Coreg) 3.125 mg PO DAILY@17 [facility] Stop: 09/15/19 17:50 Finasteride (Proscar) 5 mg PO HS JUN Stop: 09/15/19 20:59 Heparin Sodium (Porcine) (Heparin Sodium (Porcine)) 5,000 units SQ Q12 JUN Stop: 09/15/19 20:59 Lisinopril (Zestril) 20 mg PO DAILY@12 [facility] Stop: 09/16/19 11:59 Nitroglycerin (Nitrostat) 0.4 mg SL UD PRN PRN Reason: Chest Pain Stop: 09/15/19 17:50 Pantoprazole Sodium (Protonix) 40 mg PO QAM [facility] Stop: 09/15/19 17:50 Polyethylene Glycol (Miralax Powder Packet) 17 gm PO DAILY PRN PRN Reason: Constipation Stop: 09/15/19 17:50 Pravastatin Sodium (Pravachol) 40 mg PO HS [facility] Stop: 09/15/19 20:59 Terazosin HCl (Hytrin) 5 mg PO HS JUN Stop: 09/15/19 20:59
[2019-08-16] MEDS: PRAVASTATIN SOD 40 MG TAB PO SCH (20:08)
[2019-08-16] MEDS: PANTOprazole 40 MG TAB PO SCH (20:08)
[2019-08-16] MEDS: FINASTERIDE 5 MG TAB PO SCH (20:08)
[2019-08-16] MEDS: TERAZOSIN HCL 5 MG CAP PO SCH (20:08)
[2019-08-16] MEDS: SODIUM CHLORIDE 0.9% 1000ML 1,000 ML IV SCH (20:09)
[2019-08-16] MEDS: HEPARIN SOD 5,000 UNIT/0.5 ML VIAL SQ SCH (20:09)
[2019-08-16] MEDS: CARVEDILOL 3.125 MG TAB PO SCH (20:40)
--- NOTE | 2019-08-17 06:35 | Hospitalist Progress Note ---
Date of Service August 17, 2019 Assessment & Plan (1) Chest pain: Patient has been experiencing chest pain for at least couple weeks and perhaps longer. Pattern of symptoms sometimes seems to be related to exertion, but not always. History of esophageal dysmotility and GERD which could be contributing factors. However, patient has multiple risk factors for ischemic heart disease including hypertension and dyslipidemia. No acute changes on EKG. Troponins are negative x 2 Patient has known aneurysm of ascending aorta, but symptoms do not suggest dissection, carotid and peripheral pulses are symmetric, and echocardiogram last week was stable. Pain is not pleuritic in nature and symptoms do not suggest pulmonary embolism. Check serial cardiac markers. Check lipid profile. Cardiology to see Consider further GI evaluation in the office if cards w/u negative (2) Aneurysm, ascending aorta: Followed by Cardiology. Echo last week showed stable aneurysm measuring 4.5 cm. Continue management of blood pressure and lipids. Ongoing follow-up per Cardiology. (3) GERD (gastroesophageal reflux disease): History of GERD. Continue PPI. (4) Esophageal dysmotility: History of esophageal dysmotility, noted in 2011. Current symptoms may or may not be related. (5) Hypertension: Continue carvedilol, lisinopril, terazosin. (6) Dyslipidemia: Continue pravastatin. (7) Benign prostatic hyperplasia: Continue terazosin and finasteride. (8) DVT prophylaxis: SQ heparin. Ambulate. (9) Discharge planning issues: Anticipated discharge to home today. Family Medicine follow-up with Dr. Lopez. Cardiology follow-up with Dr. Joradn. GI eval outpatient labs reviewed ROS-No Headache, No Visual Changes, No Nausea, No Vomiting, No Fever, No Chills, No Neck Pain or Stiffness, + Chest Pressure/Heaviness, No Palpitations, No SOB, No MERCEDES, No Cough, No Sputum, No Wheezing, No Abdominal Pain, No Diarrhea, No Hematemesis, No Hemoptysis, No Unexpected Weight Loss, No Flank pain, No Melena, No Hematochezia, No Frequency, No Urgency, No Burning, No Hematuria, No Rashes, No Diaphoresis. Appetite is Normal Physical Exam Gen-AAO x 3, NAD,, Obese, Afebrile Head-NCAT, EOMI, PERRLA, Anicteric Sclera, No Posterior Pharyngeal Erythema Neck-Supple, No JVD, No Thyromegaly, No Masses, No LAD, No Bruits Lungs-Clear to Auscultation Bilaterally, No Rales, No Rhonchi, No Wheezing, No Crepitus Chest-No S4, +S1, +S2, No S3, No Murmurs, No Rubs, No Gallops, No Ectopy Abdomen-Soft, Obese, Bowel Sounds Present, Non Tender, Non Distended, No Hepatomegaly, No Splenomegaly, No Palpable Masses, No Rebound, No Rigidity, No Guarding Musculoskeletal-Full Range of Motion Bilaterally, No CVAT Extremities-No Cyanosis, No Clubbing, No Edema Nuero-Cranial Nerves II-XII grossly intact, Motor WNL, DTRs WNL, Strength WNL, Non Focal Psych-Normal Mood Results & Data Vital Signs (Past 12 Hours) Vital Signs Temp Pulse Resp BP Pulse Ox 08/17/19 03:36 36.7 C 66 20 116/72 96 08/16/19 22:58 36.9 C 93 H 19 109/51 L 96
[2019-08-17 07:32] LABS: BUN Creatinine Ratio 11.7 (10-20); Calcium 8.3 mg/dl (8.5-10.1); Creatinine Clr Calc Pharmacy 38.5 ml/min; Est GFR (African American) 43.8; Est GFR (Non-African American) 37.8; Potassium 4.2 mmol/L (3.5-5.1)
[2019-08-17] MEDS: PANTOprazole 40 MG TAB PO SCH (07:54)
[2019-08-17] MEDS: HEPARIN SOD 5,000 UNIT/0.5 ML VIAL SQ SCH ×2 (07:54→19:49)
[2019-08-17] MEDS: ASPIRIN 81 MG ECTAB PO SCH (07:54)
[2019-08-17] MEDS: SODIUM CHLORIDE 0.9% 1000ML 1,000 ML IV SCH ×2 (08:03→19:49)
[2019-08-17] MEDS: LISINOPRIL 20 MG TAB PO SCH (11:38)
--- NOTE | 2019-08-17 12:22 | Cardiology Progress Note ---
Date of Service August 17, 2019 Assessment & Plan (1) Chest pain: Troponin negative x 1. EKG negative . Echo stable. Given high pretest probability, invasive coronary angiography is likely the best approach to excluding obstructive CAD. He had a nonischemic stress test a year ago. He does have stage III chronic kidney disease, renal function stable At this time we will advance his diet, will likely plan on diagnostic cardiac catheterization tomorrow pending scheduling. (2) Aneurysm, ascending aorta: It is doubtful that his pain is due to his aneurysm. It is waxed and waned for long intervals of time, and does not sound characteristic dissection discomfort. Subjective Chief complaint: Follow-up chest pressure History of present illness: Patient feeling improved, 0/10 chest discomfort this morning. Telemetry reveals stable sinus rhythm. Review of Systems Review of Systems: All systems reviewed & are unremarkable except as noted in HPI & below Physical Exam Physical Exam: Temp Pulse Resp BP Pulse Ox 36.5 C 66 18 143/81 H 95 08/17/19 08:00 08/17/19 08:00 08/17/19 08:00 08/17/19 08:00 08/17/19 08:00 Constitutional: WD/WN, vitals as above Respiratory: normal respiratory effort, lungs clear to auscultation Cardiovascular: RRR, no murmur, no edema Gastrointestinal (Abdomen): normal bowel sounds, soft, nontender, no hepatosplenomegaly Neurologic: PERRL, EOMI, accommodation nl, no face palsy, no dysarthria Results & Data Vital Signs (Past 12 Hours) Vital Signs Temp Pulse Pulse Resp BP Pulse Ox 08/17/19 08:00 36.5 C 65 66 18 143/81 H 95 08/17/19 03:36 36.7 C 66 20 116/72 96 Diagnostic Findings Cardiac Enzymes 08/16/19 08/16/19 08/17/19 Range/Units 12:57 18:54 06:20 AST 22 (15-37) U/L Troponin I < 0.015 < 0.015 < 0.015 (0-0.045) ng/ml Coagulation 08/16/19 Range/Units 12:57 PT 10.0 (9.0-12.0) Seconds APTT 24.5 (21.0-31.0) Seconds Lipids 08/17/19 Range/Units 06:20 Triglycerides 283 H (0-150) mg/dl Cholesterol 152 (0-200) mg/dl HDL Cholesterol 33 mg/dl Cholesterol/HDL Ratio 5 CBC 08/16/19 Range/Units 12:57 WBC 9.70 (4.8-10.8) K/uL RBC 4.41 L (4.7-6.1) M/uL Hgb 14.5 (14.0-18.0) g/dL Hct 40.4 L (42-52) % Plt Count 228 (130-400) K/uL Neut # (Auto) 6.57 H (1.4-6.5) K/uL Lymph # (Auto) 2.05 (1.2-3.4) K/uL Slope # (Auto) 0.85 H (0.11-0.59) K/uL Eos # (Auto) 0.19 (0-0.5) K/uL Baso # (Auto) 0.02 (0-0.2) K/uL Comprehensive Metabolic Panel 08/16/19 08/17/19 Range/Units 12:57 06:20 Sodium 134 L 138 (136-145) mmol/L Potassium 3.9 4.2 (3.5-5.1) mmol/L Chloride 106 107 (98-107) mmol/L Carbon Dioxide 25 24 (21-32) mmol/L BUN 21 H 21 H (7-18) mg/dl Creatinine 1.63 H 1.75 H (0.6-1.4) mg/dl Glucose 121 H 97 (70-99) mg/dl Calcium 8.5 8.3 L (8.5-10.1) mg/dl AST 22 (15-37) U/L ALT 43 (12-78) U/L Alkaline Phosphatase 97 (45-117) U/L Total Protein 7.1 (6.4-8.2) gm/dl Albumin 3.8 (3.4-5.0) gm/dl Intake and Output 08/16/19 08/17/19 08/17/19 22:59 06:59 14:59 Intake Total 380 / 380 952 / 952 Balance 380 / 380 952 / 952 Intake: IV 952 / 952 Nss 1000ML 1,000 ml @ 80 mls/hr 952 / 952 IV .[id number] [facility] Rx#:[id number] Oral 380 / 380 Other: Other Intake Source NPO # Unmeasured Voids 2 Weight 89.2 kg 88.9 kg
--- NOTE | 2019-08-17 14:24 | History & Physical Bridge Note ---
Date of Service August 17, 2019 History & Physical Bridge Note I have examined the patient, reviewed the History & Physical and in the interval since the performance of the History & Physical I have noted the following changes of clinical significance: no changes noted I have explained the risk benefit and intent of a cardiac catheterization to the patient and he is willing to proceed. He does have some renal insufficiency however, his creatinine has been stable. We will hydrate him overnight and proceed with a heart catheterization tomorrow. He does have dilatation of the aortic root and ascending aorta and certainly his chest pain could be from an aneurysmal expansion but I feel that is most important to exclude coronary artery disease as an etiology and therefore I think we should proceed with the heart catheterization. I also believe we can start with a transradial approach and if successful great but if not then we will switch to the femoral approach.
[2019-08-17] MEDS: CARVEDILOL 3.125 MG TAB PO SCH (17:00)
[2019-08-17] MEDS: FINASTERIDE 5 MG TAB PO SCH (19:48)
[2019-08-17] MEDS: TERAZOSIN HCL 5 MG CAP PO SCH (19:48)
[2019-08-17] MEDS: PRAVASTATIN SOD 40 MG TAB PO SCH (19:49)
[2019-08-18] MEDS: SODIUM CHLORIDE 0.9% 1000ML 1,000 ML IV SCH ×3 (00:21→21:37)
[2019-08-18 05:58] LABS: Hematocrit (blood only) 36.7 % (42-52); Hemoglobin 12.4 g/dL (14.0-18.0); Mean Corpuscular Hemoglobin 31.8 pg (25-34); Mean Corpuscular Hgb Conc 33.8 g/dL (32-36); Mean Corpuscular Volume 94.1 fL (80-100); Mean Platelet Volume 9.2 fL (7.4-10.4); Platelet Count 195 K/uL (130-400); RDW Standard Deviation 44.5 fL (36.4-46.3); White Blood Count 8.04 K/uL (4.8-10.8)
[2019-08-18 06:38] LABS: BUN Creatinine Ratio 12.5 (10-20); Calcium 8.1 mg/dl (8.5-10.1); Creatinine Clr Calc Pharmacy 42.2 ml/min; Est GFR (African American) 48.8; Est GFR (Non-African American) 42.1; Potassium 4.1 mmol/L (3.5-5.1)
--- NOTE | 2019-08-18 06:41 | Hospitalist Progress Note ---
Date of Service August 18, 2019 Assessment & Plan (1) Chest pain: Patient has been experiencing chest pain for at least couple weeks and perhaps longer. c/o Chest Pressure overnight, for [facility] today Pattern of symptoms sometimes seems to be related to exertion, but not always. History of esophageal dysmotility and GERD which could be contributing factors. However, patient has multiple risk factors for ischemic heart disease including hypertension and dyslipidemia. No acute changes on EKG. Troponins are negative x 2 Patient has known aneurysm of ascending aorta, but symptoms do not suggest dissection, carotid and peripheral pulses are symmetric, and echocardiogram last week was stable. Pain is not pleuritic in nature and symptoms do not suggest pulmonary embolism. Check serial cardiac markers. Check lipid profile. Cardiology on case-[facility] today (2) Aneurysm, ascending aorta: Followed by Cardiology. Echo last week showed stable aneurysm measuring 4.5 cm. Continue management of blood pressure and lipids. Ongoing follow-up per Cardiology. (3) GERD (gastroesophageal reflux disease): History of GERD. Continue PPI. (4) Esophageal dysmotility: History of esophageal dysmotility, noted in 2011. Current symptoms may or may not be related. (5) Hypertension: Continue carvedilol, lisinopril, terazosin. (6) Dyslipidemia: Continue pravastatin. (7) Benign prostatic hyperplasia: Continue terazosin and finasteride. (8) DVT prophylaxis: SQ heparin. Ambulate. (9) Discharge planning issues: Anticipated discharge tomorrow. Family Medicine follow-up with Dr. Lopez. Cardiology follow-up with Dr. Jordan. labs reviewed ROS-No Headache, No Visual Changes, No Nausea, No Vomiting, No Fever, No Chills, No Neck Pain or Stiffness, +Chest Pressure/Heaviness, No Palpitations, No SOB, No MERCEDES, No Cough, No Sputum, No Wheezing, No Abdominal Pain, No Diarrhea, No Hematemesis, No Hemoptysis, No Unexpected Weight Loss, No Flank pain, No Melena, No Hematochezia, No Frequency, No Urgency, No Burning, No Hematuria, No Rashes, No Diaphoresis. Appetite is Normal Physical Exam Gen-AAO x 3, NAD,, Obese, Afebrile Head-NCAT, EOMI, PERRLA, Anicteric Sclera, No Posterior Pharyngeal Erythema Neck-Supple, No JVD, No Thyromegaly, No Masses, No LAD, No Bruits Lungs-Clear to Auscultation Bilaterally, No Rales, No Rhonchi, No Wheezing, No Crepitus Chest-No S4, +S1, +S2, No S3, No Murmurs, No Rubs, No Gallops, No Ectopy Abdomen-Soft, Obese, Bowel Sounds Present, Non Tender, Non Distended, No Hepatomegaly, No Splenomegaly, No Palpable Masses, No Rebound, No Rigidity, No Guarding Musculoskeletal-Full Range of Motion Bilaterally, No CVAT Extremities-No Cyanosis, No Clubbing, No Edema Nuero-Cranial Nerves II-XII grossly intact, Motor WNL, DTRs WNL, Strength WNL, Non Focal Psych-Normal Mood labs checked Results & Data Vital Signs (Past 12 Hours) Vital Signs Temp Pulse Resp BP Pulse Ox 08/18/19 04:06 36.9 C 64 18 117/69 95 08/18/19 00:00 37 C 69 18 104/57 L 95 08/17/19 19:09 37.0 C 84 19 122/73 95
[2019-08-18] MEDS ORDERED: fentaNYL citrate 100 MCG/2 ML VIAL ONE (08:37)
[2019-08-18] MEDS ORDERED: HEPARIN (PORCINE) 1000 UNIT/ML 10 ML (CATH LAB USE ONLY) ONE (08:37)
[2019-08-18] MEDS ORDERED: NiCARDipine HCL INJ 2.5 MG/ML 10 ML AMP ONE (08:37)
[2019-08-18] MEDS ORDERED: MIDAZOLAM HCL 1 MG/ML 2ML VIAL ONE (08:38)
[2019-08-18] MEDS ORDERED: NITROGLYCERIN/D5W 100MCG/ML 20ML SYR ONE (08:38)
[2019-08-18] MEDS: PANTOprazole 40 MG TAB PO SCH (08:46)
[2019-08-18] MEDS: ASPIRIN 81 MG ECTAB PO SCH (08:46)
[2019-08-18] MEDS: HEPARIN SOD 5,000 UNIT/0.5 ML VIAL SQ SCH ×2 (08:48→21:02)
[2019-08-18] MEDS ORDERED: BISACODYL 10 MG SUPP PR PRN (09:07)
--- NOTE | 2019-08-18 10:32 | Cardiac Catheterization ---
Date of Service August 18, 2019 Cardiac Cath Report Cardiac Cath Report Procedure: 1. Coronary angiography 2. Left ventriculography 3. Left heart catheterization History: This is a 74-year-old male patient with a history of a dilated aortic root and ascending aorta who presented with classic exertional angina. Procedure summary: After informed consent was obtained the patient was brought to the cardiac catheterization lab where access was obtained using a retrograde cylinder t echnique from the right radial artery. Preformed diagnostic catheters were utilized for the coronary angiograms. A 5 Sinhala pigtail catheter was utilized for the left ventriculogram. Following the procedure the patient was returned to his room in stable condition. ACC data: Start time 9:18 AM End time 9:55 AM Opening aortic pressure 146/89 Closing aortic pressure 137/85 LV pressure 126/34 Sedation 2 mg intravenous Versed IV fluid 77 cc of normal saline Contrast 111 cc of Visi Fluoroscopy time 5.4 minutes Radiation 1426 mGy DAP 113.72 milligrays per liter Right dominant system AUC score 9 Coronary angiography: The coronary anatomy is heavily calcified under fluoroscopy. Selective injections of the left coronary artery reveal the left main trunk to be patent. The left circumflex artery consists of a large first marginal branch which bifurcates and a second large marginal branch which supplies the posterior myocardium. Before the takeoff of the second marginal branch there is an 80% stenoses. The LAD is diffusely diseased in its mid segment there are 2 lesions which are eccentric and estimated to be 70 to 80% stenosis in the mid and distal LAD. The remainder the left coronary artery reveals diffuse disease. Selective injections of the right coronary reveal it to be dominant. The right coronary artery is heavily diseased proximally and in the mid segment with multiple 90% lesions. Left ventriculogram: The left ventricle is of normal size with normal systolic function. The mitral valve is competent. The aortic root and ascending aorta are dilated. Summary: The patient has significant calcification of his coronary anatomy. There is three-vessel coronary artery disease with heavily diffuse disease of the proximal and mid right coronary artery. The left circumflex artery has a high- grade stenosis before the takeoff of the second marginal branch. The LAD has 2 eccentric lesions in its mid and distal segment which are estimated to be approximately 70 to 80%. The patient has normal LV function. The aortic root and ascending aorta are dilated. Recommendations: Recommendations are for the patient to have surgical evaluation for possible coronary artery bypass surgery along with aortic root repair.
[2019-08-18] MEDS: LISINOPRIL 20 MG TAB PO SCH (11:42)
[2019-08-18] MEDS: CARVEDILOL 3.125 MG TAB PO SCH (18:08)
[2019-08-18] MEDS: FINASTERIDE 5 MG TAB PO SCH (21:00)
[2019-08-18] MEDS: PRAVASTATIN SOD 40 MG TAB PO SCH (21:01)
[2019-08-18] MEDS: TERAZOSIN HCL 5 MG CAP PO SCH (21:02)
[2019-08-19 05:57] LABS: Hematocrit (blood only) 34.5 % (42-52); Mean Corpuscular Hemoglobin 31.9 pg (25-34); Mean Corpuscular Hgb Conc 34.8 g/dL (32-36); Mean Corpuscular Volume 91.8 fL (80-100); Mean Platelet Volume 8.7 fL (7.4-10.4); Platelet Count 195 K/uL (130-400); RDW Coefficient of Variation 12.8 % (11.5-14.5); Red Blood Count 3.76 M/uL (4.7-6.1); White Blood Count 9.14 K/uL (4.8-10.8)
[2019-08-19 06:43] LABS: BUN Creatinine Ratio 15.8 (10-20); Calcium 8.2 mg/dl (8.5-10.1); Est GFR (African American) 56.4; Est GFR (Non-African American) 48.7; Potassium 4.1 mmol/L (3.5-5.1)
[2019-08-19] MEDS: HEPARIN SOD 5,000 UNIT/0.5 ML VIAL SQ SCH (07:50)
[2019-08-19] MEDS: ASPIRIN 81 MG ECTAB PO SCH (07:50)
[2019-08-19] MEDS: PANTOprazole 40 MG TAB PO SCH (07:50)
[2019-08-19] MEDS: SODIUM CHLORIDE 0.9% 1000ML 1,000 ML IV SCH (07:50)
--- NOTE | 2019-08-19 10:35 | Cardiology Progress Note ---
Date of Service August 19, 2019 Assessment & Plan (1) Chest pain: (2) Aneurysm, ascending aorta: (3) CAD (coronary artery disease): The patient will be scheduled for follow-up with cardiothoracic surgery. Our office will call him with an appointment. He will remain on same medications. He can be discharged today from our standpoint. Subjective The patient had an uneventful night. He is anxious to be discharged home. His creatinine has actually improved post cardiac catheterization most likely from IV hydration. Review of Systems Review of Systems: All systems reviewed & are unremarkable except as noted in HPI & below Nothing additional. Physical Exam Physical Exam: General: no acute distress and stated age Head: normocephalic, no masses, lesions, tenderness or abnormalities Eyes: conjunctiva are pink and non-injected, sclera clear Neck: supple, no adenopathy, no bruits, normal jugular venous pulse, no hepatojugular reflux Chest: normal shape and normal respiratory effort Lungs: clear to auscultation and percussion Cardiac Exam: - regular rate & rhythm, no murmurs gallops or rubs - normal S1, normal S2 Pulses: 2(+) throughout Abdomen: abdomen soft, non-tender, no abnormal masses and no hepatosplenomegaly Musculoskeletal: no gait disturbance, no joint inflammation, no deforming arthritis Extremities: Cath site look good Neuro: grossly normal exam Results & Data Vital Signs (Past 12 Hours) Vital Signs Temp Pulse Pulse Resp BP BP Pulse Ox 08/19/19 07:01 36.3 C L 71 19 130/81 95 08/19/19 02:51 36.4 C L 85 20 92/51 L 96 08/19/19 00:19 61 08/18/19 23:07 36.8 C 64 18 103/52 L 96 Laboratory Results Laboratory Results - last 24 hr 08/19/19 08/19/19 08/19/19 05:34 05:34 07:15 WBC 9.14 RBC 3.76 L Hgb 12.0 L Hct 34.5 L MCV 91.8 MCH 31.9 MCHC 34.8 RDW Std Deviation 43.0 RDW Coeff of Ibrahima 12.8 Plt Count 195 MPV 8.7 Sodium 139 Potassium 4.1 Chloride 111 H Carbon Dioxide 21 Anion Gap 7.0 BUN 23 H Creatinine 1.42 H Est Cr Clr Drug Dosing 48.0 Est GFR ( Amer) 56.4 Est GFR (Non-Af Amer) 48.7 BUN/Creatinine Ratio 15.8 Glucose 98 POC Glucose 99 Calcium 8.2 L Medications Administered Current Inpatient Medications Acetaminophen (Tylenol) 650 mg PO Q4H PRN PRN Reason: Pain or Fever Stop: 09/15/19 17:50 Last Admin: 08/18/19 18:08 Dose: 650 mg Documented by: Al Hydrox/Mg Hydrox/Simethicone (Maalox) 15 ml PO Q4H PRN PRN Reason: Dyspepsia Stop: 09/15/19 17:50 Aspirin (Ecotrin Ectab) 81 mg PO DAILY [facility] Stop: 09/16/19 08:59 Last Admin: 08/19/19 07:50 Dose: 81 mg Documented by: Bisacodyl (Dulcolax) 10 mg MO Q12H PRN PRN Reason: Constipation Stop: 09/17/19 09:06 Carvedilol (Coreg) 3.125 mg PO DAILY@17 [facility] Stop: 09/15/19 17:50 Last Admin: 08/18/19 18:08 Dose: 3.125 mg Documented by: Finasteride (Proscar) 5 mg PO HS [facility] Stop: 09/15/19 20:59 Last Admin: 08/18/19 21:00 Dose: 5 mg Documented by: Heparin Sodium (Porcine) (Heparin Sodium (Porcine)) 5,000 units SQ Q12 JUN Stop: 09/15/19 20:59 Last Admin: 08/19/19 07:50 Dose: 5,000 units Documented by: Lisinopril (Zestril) 20 mg PO DAILY@12 [facility] Stop: 09/16/19 11:59 Last Admin: 08/18/19 11:42 Dose: 20 mg Documented by: Nitroglycerin (Nitrostat) 0.4 mg SL UD PRN PRN Reason: Chest Pain Stop: 09/15/19 17:50 Pantoprazole Sodium (Protonix) 40 mg PO QAM [facility] Stop: 09/15/19 17:50 Last Admin: 08/19/19 07:50 Dose: 40 mg Documented by: Polyethylene Glycol (Miralax Powder Packet) 17 gm PO DAILY PRN PRN Reason: Constipation Stop: 09/15/19 17:50 Pravastatin Sodium (Pravachol) 40 mg PO HS JUN Stop: 09/15/19 20:59 Last Admin: 08/18/19 21:01 Dose: 40 mg Documented by: Terazosin HCl (Hytrin) 5 mg PO JUN Stop: 09/15/19 20:59 Last Admin: 08/18/19 21:02 Dose: 5 mg Documented by:
--- NOTE | 2019-08-19 12:20 | Discharge Summary ---
Date of Service August 19, 2019 Admission HPI Per Admitting Provider 74-year-old male followed by Dr. Lopez for Family Medicine and Dr. Jordan for Cardiology. History of hypertension, dyslipidemia, aneurysm of ascending aorta, GERD, and esophageal dysmotility. He has been experiencing chest pressure for the last 2 weeks or so. Chest pressure described as non-radiating midsternal pressure, sometimes associated with exertion, and sometimes not. Feels dyspneic at times, and dyspnea seems worse when he is experiencing the chest pressure. No associated palpitations, nausea, vomiting, diaphoresis. Symptoms not obviously related to food. He increased his omeprazole from 3 times a week dosing to every day, but continued to have symptoms. This morning he noticed some chest pressure when he awakened from sleep. He drank a cup of coffee and then went shopping. After returning from shopping, he noticed worsening chest pressure associated with some dyspnea and lightheadedness. He came to the ED for evaluation. There, he received a GI cocktail without much immediate improvement of his symptoms. At the time of my assessment, the chest pressure was significantly improved, rated as 2/10. An echocardiogram was performed at [facility] on 08/11/2019 and demonstrated aortic root measuring 4.0 cm, stable aneurysm of aortic aneurysm measuring 4.5 cm, LVEF of 60/64%, and grade 1 diastolic dysfunction. Admission Exam Per Admitting Provider Constitutional: no fever and no weight loss Eyes: no diplopia and no worsening vision Ear, Nose, Mouth, Throat: + nasal congestion; no sore throat Respiratory: + dyspnea; no cough Cardiovascular: as per Subjective / HPI Gastrointestinal: no nausea, no vomiting, no constipation, no diarrhea/loose stools, no blood in stools and no melena Musculoskeletal: + joint pain; no myalgia Integumentary: no rash and no new lesions Neurologic: no headache(s) Endocrine: no polydipsia and no polyuria Hematologic / Lymphatic: + easy bruising; no easy bleeding and no lymphadenopathy Principal Diagnosis Chest Pain CAD Aneurysm, ascending aorta GERD (gastroesophageal reflux disease): Esophageal dysmotility Hypertension Dyslipidemia Discharge Exam General- No acute distress Head- atraumatic Eyes- PERRL, EOMI, ENT- oropharynx clear Neck- supple, no JVD Lungs- clear to auscultation Heart- regular rhythm; no murmur Abdomen- normal bowel sounds, soft, nontender Extremities- no calf tenderness Neuro- alert, oriented x 3; PERRL, EOMI; no facial palsy; no dysarthria Skin- warm & dry Discharge Data Allergies Allergy/AdvReac Type Severity Reaction Status Date / Time morphine Allergy Unknown DECREASED Verified 08/16/19 14:43 BP Sulfa (Sulfonamide Allergy Unknown SICK, Verified 08/16/19 14:43 Antibiotics) FATIGUE Consultations 08/16/19 14:58 ED Decision to Admit Stat 08/16/19 17:51 Consult Cardiology Routine Procedures Performed Operation Date: 08/18/19 08:00 Actual Procedures p Cath, Left with Cors and Vent - Wilman Nichols, DO s Cineradiography w/Routine Exam - Conrado Ramos MD Ordered Studies 08/18/19 06:32 CL Cath Imgs for PACS use only Routine Hospital Course (1) Chest pain: CAD Patient has been experiencing chest pain for at least couple weeks and perhaps longer. c/o Chest Pressure overnight, for [facility] today Pattern of symptoms sometimes seems to be related to exertion, but not always. History of esophageal dysmotility and GERD which could be contributing factors. However, patient has multiple risk factors for ischemic heart disease including hypertension and dyslipidemia. No acute changes on EKG. Troponins are negative x 3 Pain is not pleuritic in nature and symptoms do not suggest pulmonary embolism. ECHO done showed Echo show normal left ventricle wall thickening, no wall motion abnormality with EF 55 to 60%. Aortic root was mildly dilated 4 cm S/P cardiac catrh done by Dr. Nichols showed: significant calcification of his coronary anatomy. There is three-vessel coronary artery disease with heavily diffuse disease of the proximal and mid right coronary artery. The left circumflex artery has a high-grade stenosis before the takeoff of the second marginal branch. The LAD has 2 eccentric lesions in its mid and distal segment which are estimated to be approximately 70 to 80%. The patient has normal LV function. The aortic root and ascending aorta are dilated. Recommendations are for the patient to have surgical evaluation for possible coronary artery bypass surgery along with aortic root repair as per cardiology Continue aspirin, carvedilol, statin and Lisinopril (2) Aneurysm, ascending aorta: Followed by Cardiology. Echo last week showed stable aneurysm measuring 4.5 cm, but recent echo on this admission Aortic root was mildly dilated 4 cm Continue management of blood pressure Will need referral for cardiothoracic surgery (3) GERD (gastroesophageal reflux disease): History of GERD. Continue PPI. (4) Esophageal dysmotility: History of esophageal dysmotility, noted in 2011. Current symptoms may or may not be related. (5) Hypertension: Continue carvedilol, lisinopril, terazosin. (6) Dyslipidemia: Continue pravastatin. (7) Benign prostatic hyperplasia: Continue terazosin and finasteride. Hepatic Cyst Will need outpatient follow up with gastro (8) DVT prophylaxis: SQ heparin. Ambulate. (9) Discharge planning issues: Family Medicine follow-up with Dr. Lopez. Cardiology follow-up with Dr. Jordan. Total Time Total Time Spent Total Time Spent (In Minutes): 35 minutes Total Time Includes: Examination of the Patient, Discharge Planning, Medication Reconciliation, Communication With Other Providers and Other Discharge Plan Discharge Items Patient Disposition: Home - Self-Care Reason For Visit: CHEST PAIN Discharge Diagnosis: Chest Pain Aneurysm, ascending aorta GERD (gastroesophageal reflux disease): Esophageal dysmotility Hypertension Dyslipidemia Condition on Discharge: Good Activity: Resume your previous activity Activity Comment: As tolerated Lifting: None Bathing: No limitations Sexual Activity: When tolerated Exercise/Sports: Gradually increase as tolerated Driving/Machine Use: No limitations Weightbearing: Full weightbearing Non-emergency contact: Primary Care Provider Call non-emergency contact if: you have any medication questions Follow-up/Referrals: Joe Lopez MD [Primary Care Provider] - 08/21/19 11:00 am Diet: Regular and Heart Healthy Addtl Attending Provider Instructions: Follow uo with your primary care provider Dr. Lopez on 08/21/19 @ 11:00AM Follow up with your Cardiology (office will call you for the follow up) Your physician or your cardiology will refer you with the cardiothoracic surgery Outpatient GI referral for the hepatic cyst Keep the area for the cardiac cath clean and dry to avoid any infection Do not use creams, lotions or ointment on the wound site Do not take a bath, tub soak, go in a Jacuzzi, or swim in a pool or shook for one week after the procedure. You may take showers, but make sure the area where the catheter was inserted does not get wet for the first 24 to 48 hours. Do not participate in strenuous activities for 3 days after the procedure. Gradually increase your activities until you reach your normal activity level within two days after the procedure. Avoid heavy lifting (more than 10 pounds) and pushing or pulling heavy objects for the first 5 days after the procedure. Ok to drive after 4 to 5 days from the date of the procedure Pending Studies at Discharge: No Stand-Alone Forms: Call Back Authorization, My [facility] Medications and DC Order Prescriptions: Continued terazosin 5 mg capsule 5 mg PO HS RF: 0 pravastatin [Pravachol] 40 mg tablet 40 mg PO HS RF: 0 lisinopril [Prinivil] 20 mg tablet 20 mg PO QAM RF: 0 aspirin 81 mg Tablet,Delayed Release (Dr/Ec) 81 mg PO DAILY RF: 0 carvedilol [Coreg] 3.125 mg tablet 3.125 mg PO PM RF: 0 omeprazole 20 mg Capsule,Delayed Release(Dr/Ec) 20 mg PO PM RF: 0 polyethylene glycol 3350 [Miralax] 17 gram/dose Powder 17 g PO DAILY PRN (Reason: Constipation) RF: 0 finasteride [Proscar] 5 mg tablet 5 mg PO HS RF: 0 acetaminophen [Tylenol] 325 mg Capsule 650 mg PO HS PRN (Reason: Pain) RF: 0 Centrum Silver Men 300-600-300 mcg Tablet 1 tab PO DAILY RF: 0 Probiotic 3 billion cell Capsule 3,000 mmu cells PO DAILY RF: 0 Discharge Orders: Discharge Order (Routine); Ordered 08/19/19 Ordered By: Eliazar Gatyan Admission Data Admit Date/Time: 08/17/19 15:42 Attending Provider: Eliazar Gaytan Admit Provider: Heber Ly Primary Care Provider: Joe Lopez Other Providers: Heber Ly ; Javed Lemus ; Ousmane Mcallister
[2019-08-19] MEDS: LISINOPRIL 20 MG TAB PO SCH (12:52)
--- NOTE | 2019-08-21 13:44 | Coding Query ---
CODING QUERY To promote full compliance with coding requirements relating to patient care, provider participation is requested in all cases of franchise field consultant uncertainty. Please assist us with the question(s) below: Coding Question(s): Patient admitted with chest pain. Cardiac cath ,angiography and ventriculogram performed- positive for severe CAD as noted in the cardiac cath report. Please document, if known or suspected, the etiology of the chest pain. Thank you . Heber Cohen [facility] Physician's Response(s): Multiple Vessel disease Principal Diagnosis: "that condition established after study, to be chiefly responsible for occasioning the admission of the patient to the hospital for care." Co-Existing Principal Diagnosis: "when two or more diagnoses equally meet the criteria for principal diagnosis as determined by the circumstances of admission, diagnostic work up, and/or therapy provided, and the Alphabetic Index, Tabular List, or another coding guideline does not provide sequencing direction, any one of the diagnoses may be sequenced first." "When the physician has documented what appears to be a current diagnosis in the body of the record, but has not included the diagnosis in the final diagnostic statement, the physician should be asked whether the diagnosis should be added." (Source [facility]oding [facility] 2 QTR90. p3-4) LEA
== END 2019-08-19 12:58 | disposition home or self-care (01) | DRG 287 ==
LOC: ED 12:24 → 2E 12:24 → SUATTDRO 15:58 → 2E 17:20 → SUATTDRO 08-17 15:42

== ENCOUNTER 2020-06-19 14:42 | Inpatient (IN) ==
[2020-06-19] MEDS ORDERED: ASPIRIN CHEW 324 MG PO STA (15:11)
[2020-06-19 15:18] LABS: Basophils # (auto) 0.02 K/uL (0-0.2); Basophils % (auto) 0.2 %; Hematocrit (blood only) 40.6 % (42-52); Hemoglobin 13.9 g/dL (14.0-18.0); Immature Granulocytes # (auto) 0.03 K/uL (0.00-0.02); Immature Granulocytes % (auto) 0.3 %; Lymphocytes # (auto) 2.21 K/uL (1.2-3.4); Lymphocytes % (auto) 22.2 %; Mean Corpuscular Hemoglobin 31.9 pg (25-34); Mean Corpuscular Hgb Conc 34.2 g/dL (32-36); Mean Corpuscular Volume 93.1 fL (80-100); Mean Platelet Volume 8.9 fL (7.4-10.4); Monocytes # (auto) 0.79 K/uL (0.11-0.59); Monocytes % (auto) 7.9 %; Neutrophils % (auto) 67.4 %; Platelet Count 257 K/uL (130-400); RDW Standard Deviation 44.4 fL (36.4-46.3); Red Blood Count 4.36 M/uL (4.7-6.1); White Blood Count 9.95 K/uL (4.8-10.8)
[2020-06-19 15:25] LABS: BUN Creatinine Ratio 8.7 (10-20); Blood Urea Nitrogen 17 mg/dl (7-18); Carbon Dioxide 25 mmol/L (21-32); Chloride 105 mmol/L (98-107); Est GFR (African American) 38.9; Est GFR (Non-African American) 33.5; Glucose 121 mg/dl (70-99); Lipase 262 U/L (73-393); Potassium 3.9 mmol/L (3.5-5.1); Sodium 138 mmol/L (136-145)
[2020-06-19 15:30] LABS: Troponin I < 0.015 ng/ml (0-0.045)
[2020-06-19 15:38] LABS: INR 0.9 (0.9-1.1); Partial Thromboplastin Ratio 0.9; Partial Thromboplastin Time 25.9 Seconds (21.0-31.0); Prothrombin Time 9.8 Seconds (9.0-12.0)
[2020-06-19 15:44] LABS: D Dimer 1240 ug/L FEU (0-500)
--- NOTE | 2020-06-19 15:54 | Emergency Department Note ---
History of Present Illness General Chief Complaint: Chest Pain Stated Complaint: CHEST PAIN,SOB Time Seen by Provider: 06/19/20 14:55 History of Present Illness Provider Complaint: chest pain Onset (ago): week(s) Onset (Weeks): 1 Duration: intermittent Onset: during exertion Pain Location: substernal Pain Radiation: none Severity: moderate Maximum Pain Intensity: 8 Current Pain Intensity: 0 Quality: + other (Pressure) Relieved By: + rest Exacerbated By: + exertion Context: no recent surgery, no recent travel, no trauma/injury and no history of DVT/PE Associated symptoms: + dyspnea; no nausea, no vomiting, no diaphoresis, no palpitations, no fever and no cough Home Medications Home Medications Medication Instructions Recorded Confirmed Type Centrum Silver Men 1 tab PO QAM 08/16/19 06/19/20 History Probiotic 3,000 mmu cells PO QAM 08/16/19 06/19/20 History aspirin 81 mg PO QAM 08/16/19 06/19/20 History finasteride [Proscar] 5 mg PO HS 08/16/19 06/19/20 History polyethylene glycol 3350 [Miralax] 17 g PO DAILY PRN 08/16/19 06/19/20 History pravastatin [Pravachol] 40 mg PO HS 08/16/19 06/19/20 History terazosin 5 mg PO HS 08/16/19 06/19/20 History acetaminophen 1,000 mg PO Q6H PRN 06/19/20 06/19/20 History cholecalciferol (vitamin D3) 1,000 unit PO DAILY 06/19/20 06/19/20 History lisinopril 5 mg PO QAM 06/19/20 06/19/20 History metoprolol succinate 25 mg PO QPM 06/19/20 06/19/20 History omeprazole magnesium [Prilosec OTC] 20 mg PO QPM 06/19/20 06/19/20 History Allergies Allergy/AdvReac Type Severity Reaction Status Date / Time morphine Allergy Unknown Hypotension Verified 06/19/20 15:32 Sulfa (Sulfonamide Allergy Unknown SICK, Verified 06/19/20 15:32 Antibiotics) FATIGUE Past Med/Surg History Medical History (Updated 06/19/20 @ 20:34 by Jaspal Yee) Aneurysm, ascending aorta 4.5 cm per [facility] echo 08/11/19 Benign prostatic hyperplasia CAD (coronary artery disease) Dyslipidemia Esophageal dysmotility (02/23/12) GERD (gastroesophageal reflux disease) Hypertension JEFFERSON (obstructive sleep apnea) Surgical History (Updated 06/19/20 @ 18:25 by Nicole Phelps PA-C) S/P ascending aortic aneurysm repair Aug 2019 in [place] S/P CABG (coronary artery bypass graft) Aug 2019 in [place] Family History Mother Heart disease Breast cancer Father Heart disease Social History Smoking Status: Former smoker Smoking End Date: 25-30 YEARS AGO; Second Hand Exposure: No; Tobacco Cessation Education Requested by Patient: No Hx Alcohol Use: No Hx Substance Use: No Preferred Language: Turkmen Communication Ability: Effective Script Writer Required: No Beliefs That Will Affect Care: None marital status: Current Living Situation: Spouse and Family Current Living Situation Comment: [facility] current occupational status: retired current occupation: Retired Other Information That Helps Us Care for You: No Feels Safe at Home: Yes Safety Concerns: Feels Safe At This Time Review of Systems A total of 10 systems reviewed and were otherwise negative Physical Exam Vital Signs Vital Signs - 24 hr 06/19/20 14:48 06/19/20 14:58 06/19/20 15:00 Temperature 36.8 C Temperature Source Oral Pulse Rate 85 84 86 Pulse Rate from SpO2 Sensor 90 86 Pulse Rhythm Regular Pulse Strength Normal Respiratory Rate 20 15 17 Respiratory Effort / Characteristics Non-Labored Spontaneous Respiratory Depth Normal Respiratory Pattern Regular Blood Pressure 133/76 Blood Pressure Mean 95 Blood Pressure Position Sitting Pulse Oximetry 96 97 96 Oxygen Delivery Method Room Air Sepsis Recent Fever Within 48 Hours No Sepsis New/Unexplained Change in Mental Status No Sepsis Action Taken by Nursing No Action Required 06/19/20 15:05 06/19/20 15:11 06/19/20 15:30 Temperature Temperature Source Pulse Rate 84 79 Pulse Rate from SpO2 Sensor 83 80 Pulse Rhythm Pulse Strength Respiratory Rate 20 Respiratory Effort / Characteristics Respiratory Depth Respiratory Pattern Blood Pressure 133/76 114/75 Blood Pressure Mean 85 79 Blood Pressure Position Pulse Oximetry 96 97 Oxygen Delivery Method Room Air Room Air Sepsis Recent Fever Within 48 Hours Sepsis New/Unexplained Change in Mental Status Sepsis Action Taken by Nursing 06/19/20 15:31 06/19/20 15:57 06/19/20 16:00 Temperature Temperature Source Pulse Rate 81 82 63 Pulse Rate from SpO2 Sensor 82 81 82 Pulse Rhythm Pulse Strength Respiratory Rate 21 19 Respiratory Effort / Characteristics Respiratory Depth Respiratory Pattern Blood Pressure 130/78 132/78 Blood Pressure Mean 85 84 Blood Pressure Position Pulse Oximetry 97 97 98 Oxygen Delivery Method Sepsis Recent Fever Within 48 Hours Sepsis New/Unexplained Change in Mental Status Sepsis Action Taken by Nursing 06/19/20 16:01 06/19/20 16:30 06/19/20 16:31 Temperature Temperature Source Pulse Rate 77 64 Pulse Rate from SpO2 Sensor 77 76 75 Pulse Rhythm Pulse Strength Respiratory Rate 17 23 24 Respiratory Effort / Characteristics Respiratory Depth Respiratory Pattern Blood Pressure 124/78 Blood Pressure Mean 90 Blood Pressure Position Pulse Oximetry 98 98 98 Oxygen Delivery Method Sepsis Recent Fever Within 48 Hours Sepsis New/Unexplained Change in Mental Status Sepsis Action Taken by Nursing 06/19/20 17:00 06/19/20 17:01 06/19/20 17:30 Temperature Temperature Source Pulse Rate 76 73 73 Pulse Rate from SpO2 Sensor 76 82 74 Pulse Rhythm Pulse Strength Respiratory Rate 23 23 Respiratory Effort / Characteristics Respiratory Depth Respiratory Pattern Blood Pressure 133/85 135/89 Blood Pressure Mean 99 99 Blood Pressure Position Pulse Oximetry 97 97 97 Oxygen Delivery Method Sepsis Recent Fever Within 48 Hours Sepsis New/Unexplained Change in Mental Status Sepsis Action Taken by Nursing 06/19/20 17:31 Temperature Temperature Source Pulse Rate 78 Pulse Rate from SpO2 Sensor 77 Pulse Rhythm Pulse Strength Respiratory Rate Respiratory Effort / Characteristics Respiratory Depth Respiratory Pattern Blood Pressure Blood Pressure Mean Blood Pressure Position Pulse Oximetry 96 Oxygen Delivery Method Sepsis Recent Fever Within 48 Hours Sepsis New/Unexplained Change in Mental Status Sepsis Action Taken by Nursing Physical Exam GENERAL: He is oriented to person, place, and time. He appears well-developed and well-nourished. He does not appear distressed. HENT: Exam performed. - Head: Normocephalic and atraumatic. - Right Ear: External ear normal. No mastoid tenderness. - Left Ear: External ear normal. No mastoid tenderness. - Mouth/Throat: The oropharynx is clear and moist. No trismus in the jaw. No dental abscesses or uvula swelling. No oropharyngeal exudate or tonsillar abscesses. EYES: Conjunctivae and EOM are normal. Pupils are equal, round, and reactive to light. Right eye exhibits no discharge. Left eye exhibits no discharge. No scleral icterus. NECK: Normal range of motion. Neck supple. No JVD present. No spinous process tenderness present. No carotid bruit present. No rigidity. No tracheal deviation and normal range of motion present. No Brudzinski's sign and no Kernig's sign noted. CV: Normal rate, regular rhythm, normal heart sounds and intact distal pulses. There is no peripheral edema. Palpable radial pulses bue. PULM/CHEST: Effort normal and breath sounds normal. No respiratory distress. No stridor. He has no wheezes. He has no rales. - Chest Wall: He exhibits no tenderness. ABD: The abdomen is soft. Bowel sounds are normal. He has no distension. No mass is present. There is no tenderness. There is no rebound, no guarding, no Dsouza's sign and no tenderness at McBurney's point. Rovsig negative. MUSC/SKEL: Normal range of motion. There is no peripheral edema, tenderness or deformity. LYMPH: No cervical adenopathy. NEURO: He is alert and oriented to person, place, and time. He has normal strength. No cranial nerve deficit or sensory deficit. Coordination and gait normal. GCS eye subscore is 4. GCS verbal subscore is 5. GCS motor subscore is 6. Cerebellar tests wnl. SKIN: Skin is warm and dry. He is not diaphoretic. PSYCH: He has a normal mood and affect. Behavior is normal. Judgment and thought content normal. Course Course 1455: The patient was evaluated in room A4. A complete history and physical exam was performed. Cardiac monitoring: An order was placed for continuous cardiac monitoring. The monitor shows a rate of 90 with sinus rhythm 1726: Vital signs stable. Creatinine of 1.92. Elevated d-dimer. Troponin within normal limits. Chest x-ray shows no acute findings. Given the patient's elevated troponin level, we will not able to scan the patient with CTA. I discussed the patient with Al[facility] who agreed to evaluate the patient with Dr. Vang. I did discuss the elevated d-dimer and asked that they determine if they want to start the patient on any anticoagulation which she states she will discuss with want to make that decision. Patient is in agreement to stay in the hospital overnight. Administered Medications Discontinued Medications Aspirin (Aspirin Chew 324 Mg) 324 mg PO NOW STA Stop: 06/19/20 15:12 Last Admin: 06/19/20 15:33 Dose: 324 mg Documented by: [id number] Medical Decision Making Laboratory Data Result diagrams: 06/19/20 14:48 06/19/20 14:48 Labs: Lab Results 06/19/20 06/19/20 06/19/20 Range/Units 14:48 14:48 14:48 WBC 9.95 (4.8-10.8) K/uL RBC 4.36 L (4.7-6.1) M/uL Hgb 13.9 L (14.0-18.0) g/dL Hct 40.6 L (42-52) % MCV 93.1 (80-100) fL MCH 31.9 (25-34) pg MCHC 34.2 (32-36) g/dL RDW Std Deviation 44.4 (36.4-46.3) fL RDW Coeff of Ibrahima 13.0 (11.5-14.5) % Plt Count 257 (130-400) K/uL MPV 8.9 (7.4-10.4) fL Immature Gran % (Auto) 0.3 % Neut % (Auto) 67.4 % Lymph % (Auto) 22.2 % Republic % (Auto) 7.9 % Eos % (Auto) 2.0 % Baso % (Auto) 0.2 % Neut # (Auto) 6.70 H (1.4-6.5) K/uL Lymph # (Auto) 2.21 (1.2-3.4) K/uL Republic # (Auto) 0.79 H (0.11-0.59) K/uL Eos # (Auto) 0.20 (0-0.5) K/uL Baso # (Auto) 0.02 (0-0.2) K/uL Immature Gran # (Auto) 0.03 H (0.00-0.02) K/uL PT 9.8 (9.0-12.0) Seconds INR 0.9 (0.9-1.1) APTT 25.9 (21.0-31.0) Seconds PTT Ratio 0.9 D-Dimer 1240 H* (0-500) ug/L FEU Sodium 138 (136-145) mmol/L Potassium 3.9 (3.5-5.1) mmol/L Chloride 105 (98-107) mmol/L Carbon Dioxide 25 (21-32) mmol/L Anion Gap 8.0 (3-11) BUN 17 (7-18) mg/dl Creatinine 1.92 H (0.6-1.4) mg/dl Est Cr Clr Drug Dosing Not Reportable Est GFR ( Amer) 38.9 Est GFR (Non-Af Amer) 33.5 BUN/Creatinine Ratio 8.7 L (10-20) Glucose 121 H (70-99) mg/dl Calcium 9.0 (8.5-10.1) mg/dl Troponin I < 0.015 (0-0.045) ng/ml Lipase 262 (73-393) U/L Imaging Data Chest x-ray: Radiologist's impression: XR chest 2V PA/lateral CLINICAL HISTORY: Chest pain. Shortness of breath. COMPARISON STUDY: Chest radiograph August 16, 2019. FINDINGS: Interval median sternotomy is noted. Moderate enlargement of the cardiac silhouette is noted. No evidence for pulmonary edema. No pneumothorax or pleural effusion is noted. There is no consolidation. IMPRESSION: 1. No acute findings. 2. Moderate enlargement of the cardiac silhouette. No evidence for pulmonary edema. ACT 112: Negative or not required by law. Electronically signed by: Zach Sanders M.D. 06/19/2020 4:02 PM Dictated: 06/19/20 1600 Transcribed: 06/19/20 1600 ECG Data Indication: chest pain Rate (beats per minute): 92 Rhythm: normal sinus Findings: no ST depression and no ST elevation Additional Comments: DE QRS and QTc intervals are within normal limits. [facility] Narrative 1455: The patient was evaluated in room A4. A complete history and physical exam was performed. Cardiac monitoring: An order was placed for continuous cardiac monitoring. The monitor shows a rate of 90 with sinus rhythm 1726: Vital signs stable. Creatinine of 1.92. Elevated d-dimer. Troponin within normal limits. Chest x-ray shows no acute findings. Given the patient's elevated troponin level, we will not able to scan the patient with CTA. I discussed the patient with Alison Phelps PA-C at [facility] who agreed to evaluate the patient with Dr. Vang. I did discuss the elevated d-dimer and asked that they determine if they want to start the patient on any anticoagulation which she states she will discuss with want to make that decision. Patient is in agreement to stay in the hospital overnight. Impression & Plan Chest pain, D-dimer, elevated Discharge Plan Visit Data Chief Complaint: Chest Pain Stated Complaint: CHEST PAIN,SOB ED Provider: Jaspal Yee Discharge Problem: Chest pain, D-dimer, elevated Patient Disposition: Admitted As Inpatient Discharge Instructions Interventions: ED Discharge Assessment Last Done: 06/19/20 19:21 Discharge Problem: Chest pain Qualifiers: Chest pain type: unspecified Qualified Code(s): R07.9 - Chest pain, unspecified
--- NOTE | 2020-06-19 16:03 | XRay Report ---
XR chest 2V PA/lateral CLINICAL HISTORY: Chest pain. Shortness of breath. COMPARISON STUDY: Chest radiograph August 16, 2019. FINDINGS: Interval median sternotomy is noted. Moderate enlargement of the cardiac silhouette is note d. No evidence for pulmonary edema. No pneumothorax or pleural effusion is noted. There is no consoli dation. IMPRESSION: 1. No acute findings. 2. Moderate enlargement of the cardiac silhouette. No evidence for pulmonary edema. ACT 112: Negative or not required by law. Electronically signed by: Zach Sanders M.D. 06/19/2020 4:02 PM
--- NOTE | 2020-06-19 17:38 | History & Physical Report ---
Date of Service June 19, 2020 Assessment & Plan (1) Chest pressure: (2) Fatigue: (3) MERCEDES (dyspnea on exertion): (4) CAD (coronary artery disease): (5) Dyslipidemia: (6) Enlarged aorta: (7) Aneurysm, ascending aorta: (8) History of aortic root repair: (9) Elevated d-dimer: (10) Obesity: (11) JEFFERSON (obstructive sleep apnea): Patient with new onset chest pressure and dyspnea with exertion x 3 weeks or so. He has an extensive cardiac history including aortic root repair and CABG in 2018. He also reports debilitating fatigue. He was recently started on CPAP for JEFFERSON, but has not been on this long enough to see any benefit. DDimer elevated on admission, but vitals are stable. [place] that patient should have evaluation for possbile PE vs. aortic dissection/problem with repair Detailed discussion with patient, his , Dr. Vang, and myself regarding risks/benefits of CTA of chest to assess for PE and also for aortic aneurysm/dissection. Patient refused any scans that could potentially harm his renal function. Patient opted for US of B/L LE, VQ scan, US of aorta, and Echo instead of CTA of Chest after discussion. All risks/benefits were explained. He and his agreed on this course of action. Testing was ordered. Gentle IV hydration for now. Monitor on Med/Surg with Tele Monitor BP & continue home BP meds Continue home CPAP settings. Continue O2 PRN to maintain SaO2 >90% Cardiology consultation. Will defer stress testing to Cardio if necessary. Heart healthy diet this evening- NPO after midnight. Repeat EKG now,again in the AM, and PRN chest pain Trend Troponin x 2 more Repeat CBC, BMP in AM. Check Lipids. Continue statin. Feel that fatigue, SOB, MERCEDES, and possibly chest pressure may be 2/2 uncontrolled JEFFERSON. He was recently started on CPAP (a couple of days ago) and hasn't had enough time to benefit yet. Will continue workup and appreciate Cardiology input with this patient's complicated history. (12) DVT prophylaxis: SC Heparin 5,000 units Q12h 's name is Pita. 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 He is having trouble doing almost anything because of this SOB and Chest pressure. He was recently started with CPAP at home (2-3 days ago). He saw Kelsey Collazo and was just started on this for JEFFERSON. His SaO2 has been stable, but he states he feels better on oxygen. His CPAP setting in the outpatient record is noted to be 5-20 cmH2O auto titrated. His last Echo was in January and noted EF of 59% with mildly enlarged aortic root. He had his aortic root repair last year in August 2019. He follows with Dr. Jordan for Cardiology as well. Since presentation to the hospital, patient was noted to have elevated DDimer up to 1240. Creatinine was 1.92 which is slightly elevated from baseline. Vitals have been stable. EKG showed NSR on admission. Troponin undetectable. The patient does not wish to have any scans with contrast even after discussing the risks/benefits of the scans vs current renal function. We discussed the possibility of PE and/or changes/problems with his aorta or aortic root graft. He still declined. Allergies Allergy/AdvReac Type Severity Reaction Status Date / Time morphine Allergy Unknown Hypotension Verified 06/19/20 15:32 Sulfa (Sulfonamide Allergy Unknown SICK, Verified 06/19/20 15:32 Antibiotics) FATIGUE Home Medications Home Medications Medication Instructions Recorded Confirmed Type Centrum Silver Men 1 tab PO QAM 08/16/19 06/19/20 History Probiotic 3,000 mmu cells PO QAM 08/16/19 06/19/20 History aspirin 81 mg PO QAM 08/16/19 06/19/20 History finasteride [Proscar] 5 mg PO HS 08/16/19 06/19/20 History polyethylene glycol 3350 [Miralax] 17 g PO DAILY PRN 08/16/19 06/19/20 History pravastatin [Pravachol] 40 mg PO HS 08/16/19 06/19/20 History terazosin 5 mg PO HS 08/16/19 06/19/20 History acetaminophen 1,000 mg PO Q6H PRN 06/19/20 06/19/20 History cholecalciferol (vitamin D3) 1,000 unit PO DAILY 06/19/20 06/19/20 History lisinopril 5 mg PO QAM 06/19/20 06/19/20 History metoprolol succinate 25 mg PO QPM 06/19/20 06/19/20 History omeprazole magnesium [Prilosec OTC] 20 mg PO QPM 06/19/20 06/19/20 History Past Med/Surg History Medical History (Updated 06/19/20 @ 18:33 by Nicole Phelps PA-C) Aneurysm, ascending aorta 4.5 cm per [facility] echo 08/11/19 Benign prostatic hyperplasia CAD (coronary artery disease) Dyslipidemia Esophageal dysmotility (02/23/12) GERD (gastroesophageal reflux disease) Hypertension JEFFERSON (obstructive sleep apnea) Surgical History (Updated 06/19/20 @ 18:25 by Nicole Phelps PA-C) S/P ascending aortic aneurysm repair Aug 2019 in [employer] S/P CABG (coronary artery bypass graft) Aug 2019 in [employer] Family History Mother Heart disease Breast cancer Father Heart disease Social History Smoking Status: Never smoker Second Hand Exposure: No; Hx Alcohol Use: No Hx Substance Use: No Preferred Language: Italian Communication Ability: Effective Beliefs That Will Affect Care: None marital status: Current Living Situation: Spouse current occupational status: retired current occupation: Retired Feels Safe at Home: Yes Review of Systems Review of Systems: All systems reviewed & are unremarkable except as noted in HPI & below Physical Exam Constitutional: WD/WN, vitals as above + obese Eyes: PERRL, conjunctivae normal, anicteric sclerae ENMT: external ear and nose normal, oropharynx normal Neck: trachea midline, no thyromegaly Respiratory: normal respiratory effort, lungs clear to auscultation Cardiovascular: Rate/Rhythm: regular rate and regular rhythm Extremities: + edema (trace edema RLE) Gastrointestinal (Abdomen): normal bowel sounds, soft, nontender, no hepatosplenomegaly Musculoskeletal: Head/Neck/Chest: normocephalic and head atraumatic Extremities: no clubbing and no petechiae Skin: no rashes, warm and dry Psychiatric: A+Ox3, euthymic affect Results & Data Results & Data ([facility]) Vital Signs (Past 12 Hours) Vital Signs Temp Pulse Resp BP Pulse Ox 06/19/20 17:01 73 23 97 06/19/20 17:00 76 133/85 97 06/19/20 16:31 64 24 98 06/19/20 16:30 77 23 124/78 98 06/19/20 16:01 17 98 06/19/20 16:00 63 132/78 98 06/19/20 15:57 82 19 130/78 97 06/19/20 15:31 81 21 97 06/19/20 15:30 79 114/75 97 06/19/20 15:05 84 20 133/76 96 06/19/20 15:00 86 17 96 06/19/20 14:58 84 15 97 06/19/20 14:48 36.8 C 85 20 133/76 96 Laboratory Results Laboratory Results - last 24 hr 06/19/20 06/19/20 06/19/20 14:48 14:48 14:48 WBC 9.95 RBC 4.36 L Hgb 13.9 L Hct 40.6 L MCV 93.1 MCH 31.9 MCHC 34.2 RDW Std Deviation 44.4 RDW Coeff of Ibrahima 13.0 Plt Count 257 MPV 8.9 Immature Gran % (Auto) 0.3 Neut % (Auto) 67.4 Lymph % (Auto) 22.2 [place] % (Auto) 7.9 Eos % (Auto) 2.0 Baso % (Auto) 0.2 Neut # (Auto) 6.70 H Lymph # (Auto) 2.21 [place] # (Auto) 0.79 H Eos # (Auto) 0.20 Baso # (Auto) 0.02 Immature Gran # (Auto) 0.03 H PT 9.8 INR 0.9 APTT 25.9 PTT Ratio 0.9 D-Dimer 1240 H* Sodium 138 Potassium 3.9 Chloride 105 Carbon Dioxide 25 Anion Gap 8.0 BUN 17 Creatinine 1.92 H Est Cr Clr Drug Dosing Not Reportable Est GFR ( Amer) 38.9 Est GFR (Non-Af Amer) 33.5 BUN/Creatinine Ratio 8.7 L Glucose 121 H Calcium 9.0 Troponin I < 0.015 Lipase 262 Diagnostic Findings CXR: IMPRESSION: 1. No acute findings. 2. Moderate enlargement of the cardiac silhouette. No evidence for pulmonary edema. Supervising Physician Co-Signing Physician Notes I, Dr. Ousmane Vang, have seen the patient with physician judicial assistant and agree with the assessment and plan as above and would like to comment that on exam On exam: General: no acute distress, no tachycardia, blood pressures within normal parameters Chest: regular rate Abdomen: truncal obesity, abdomen is soft Neuro: Extremities: moves all extremities and is not edematous Assessment and Plan Chest Pressure Dyspnea on Exertion Elevated D-Dimer Obstructive Sleep Apnea on CPAP History of Aortic Root Repair Obesity Chronic Kidney Disease Stage III -patient with cardiac history including aortic repair in August 2019. He reports chest pressure, and shortness of breath which is worse with activity, which sounds like has been going on for weeks as per patient and his at bedside -he was recently started on CPAP as outpatient but only had the machine for 2 days -on presentation he has elevated D-dimer but normal vital signs and first troponin is negative -he declines nitro sublingual when offered by hospitalist team because he reports that the chest discomfort is a pressure and not a pain -patient has CKD stage III and because his GFR in the 30s, hospitalist discussed with radiologist Dr. Sanders whether a CTA chest can be done to rule out PE and get better imaging of aorta, radiologist agreed that patients renal function can tolerate IV contrast. When hospitalist offered pre and post hydration to patient to prevent potential side effects of CTA contrast study, patient declined because he did not want to risk going into acute renal failure from dye contrast -we discussed limitations of ultrasounds and half of V/Q scan (because of COVID- 19 pandemic, the hospital is not doing the Ventilation part V/Q scan); patient elects to have ultrasound of lower extremities to rule out DVT, ultrasound of aorta, and echocardiogram, and half of V/Q scan -will monitor patient overnight on telemetry and trend the troponins. DVT prophylaxis is heparin 5000 units subcutaneous q12 hours because of renal function. Will also give gentle IV hydration -despite elevated D-dimer, patients presentation does not appear to be acute pulmonary embolism or acute myocardial infarction. I questioned whether patients symptoms are primarily from a not quite treated obstructive sleep apnea. Will give CPAP at night -will obtain cardiology consult and patient agrees to be NPO after midnight in case of any stress testing -agree with other assessment and plans as documented by physician judicial assistant
--- NOTE | 2020-06-19 18:32 | Ultrasound Report ---
BILATERAL LOWER EXTREMITY VENOUS DOPPLER CLINICAL HISTORY: Chest pain, R/O blood clots COMPARISON STUDY: No previous studies for comparison. TECHNIQUE: Sonography of the deep venous system of the bilateral lower extremities was performed. Co mpression and augmentation were evaluated. FINDINGS: The bilateral common femoral, superficial femoral and popliteal veins were compressible. A ugmentation was normal. Flow was shown within the deep calf vessels. IMPRESSION: No evidence of deep venous thrombus within the bilateral lower extremities. ACT 112: Negative or not required by law. Electronically signed by: Zach Sanders M.D. 06/19/2020 6:31 PM
[2020-06-19] MEDS ORDERED: POLYETHYLENE (MIRALAX) 17 GM PACK PO PRN (19:52)
[2020-06-19] MEDS ORDERED: ACETAMINOPHEN 325 MG TAB PO PRN (19:52)
[2020-06-19] MEDS ORDERED: SODIUM CHLORIDE 0.9% 1000ML 1,000 ML IV SCH (19:52)
[2020-06-19] MEDS ORDERED: TERAZOSIN HCL 5 MG CAP PO SCH (21:00)
[2020-06-19] MEDS ORDERED: METOPROLOL SUCC 25MG EXT REL TAB PO SCH (21:00)
[2020-06-19] MEDS ORDERED: PANTOprazole 40 MG TAB PO SCH (21:00)
[2020-06-19] MEDS ORDERED: PRAVASTATIN SOD 40 MG TAB PO SCH (21:00)
[2020-06-19] MEDS ORDERED: FINASTERIDE 5 MG TAB PO SCH (21:00)
[2020-06-19] MEDS: HEPARIN SOD 5,000 UNIT/0.5 ML VIAL SQ SCH (21:33)
[2020-06-20 01:42] LABS: Hematocrit (blood only) 35.4 % (42-52); Hemoglobin 12.2 g/dL (14.0-18.0); Mean Corpuscular Hemoglobin 31.8 pg (25-34); Mean Corpuscular Hgb Conc 34.5 g/dL (32-36); Mean Corpuscular Volume 92.2 fL (80-100); Mean Platelet Volume 8.8 fL (7.4-10.4); Platelet Count 209 K/uL (130-400); RDW Coefficient of Variation 13.1 % (11.5-14.5); Red Blood Count 3.84 M/uL (4.7-6.1); White Blood Count 10.93 K/uL (4.8-10.8)
[2020-06-20 02:02] LABS: BUN Creatinine Ratio 8.6 (10-20); Creatinine Clr Calc Pharmacy 42.3 ml/min; Est GFR (African American) 44.7; Est GFR (Non-African American) 38.6; Potassium 3.8 mmol/L (3.5-5.1)
--- NOTE | 2020-06-20 07:44 | Ultrasound Report ---
US aorta duplex CLINICAL HISTORY: Aortic root repair 2019, R/O aortic aneurysm vs graft issue COMPARISON STUDY: Abdomen and pelvis CT 07/28/2009. FINDINGS: Multiple hepatic cysts ranging up to 10.6 cm. Hepatic steatosis. Normal caliber proximal ab dominal aorta. The mid to distal abdominal aorta is obscured by overlying bowel gas. IMPRESSION: Normal caliber proximal abdominal aorta. The mid to distal abdominal aorta is obscured b y overlying bowel gas. ACT 112: Negative or not required by law. Electronically signed by: Clemente Jaramillo M.D. 06/20/2020 7:43 AM
[2020-06-20] MEDS: HEPARIN SOD 5,000 UNIT/0.5 ML VIAL SQ SCH (08:13)
[2020-06-20] MEDS ORDERED: CHOLECALCIFEROL 1,000 UNITS 25 MCG TAB PO SCH (09:00)
[2020-06-20] MEDS ORDERED: ASPIRIN 81 MG ECTAB PO SCH (09:00)
[2020-06-20] MEDS ORDERED: LACTOBACILLUS ACIDOPHILUS (FLORANEX) TAB PO SCH (09:00)
[2020-06-20] MEDS ORDERED: CEROVITE ADV FORMULA TAB PO SCH (09:00)
[2020-06-20] MEDS ORDERED: lisinopriL 5 MG TAB PO SCH (09:00)
--- NOTE | 2020-06-20 09:10 | Cardiology Consultation ---
Date of Consultation June 20, 2020 Assessment & Plan (1) JEFFERSON (obstructive sleep apnea): (2) Elevated d-dimer: (3) Fatigue: (4) MERCEDES (dyspnea on exertion): (5) History of aortic root repair: (6) Hx of CABG: The patient's work-up thus far has been negative. He seems to have been improving even before his hospital admission by starting CPAP at night for sleep apnea. He does have a history of a disability from the following a pneumonia. He does not really have exertional chest pain like he had before his CABG. I would recommend proceeding with the perfusion scan. Also I started him on a Combivent inhaler to see if that improves some of his symptoms. History of Present Illness Attending Physician: Ousmane Vang MD History of Present Illness This is a 75-year-old male patient who is followed by Dr. Jordan through our cardiology clinic. He has the history as outlined below, including recent open heart surgery for coronary artery bypass and repair of a dilated a sending aorta in August of last year. His presentation prior to that surgery was 1 of exertional chest pain relieved with rest. Immediately after his surgery he felt well. Now over the past several months he has expressed concerns regarding shortness of breath and dyspnea on exertion. The patient likes to stay active and wants to be outside and on the go. His shortness of breath seems to worsen in the hot weather especially over the past 1 to 2 weeks with a high temperatures and humidity. He has not had return of his angina or symptoms that he had prior to his open heart surgery. He denies orthopnea. He has had no lower extremity edema. Thus far all studies have been negative or unremarkable including an echocardiogram completed this admission. He had a elevated d- dimer. He refused all contrast dye due to concerns regarding kidney function. He did have a negative lower extremity ultrasound for DVT and is scheduled for perfusion lung scan today. He states he actually feels better now that he has been in the hospital. He also seemed to be relieved when I told him that all his studies thus far have been negative. Patient does have a history of a pneumonia when he was in the service. He receives disability payments from the [employer] due to an underlying lung condition. He stopped smoking 25 years ago. Recently, he was diagnosed with sleep apnea and started to use CPAP at night. He is only done it 1 or 2 times so far and felt marked improvement in his fatigue and tiredness through the day but has not really had a chance to use it long-term. Past medical history: 1. Postoperative retrocardiac/pericardial hematoma identified on echocardiogram, but improved on repeat CT scan. 2. Status post coronary bypass grafting x 3 , EASON to LAD saphenous vein graft OM saphenous vein graft to PDA 4 multivessel coronary disease and 34mm gelweave aortic root repair for a dilated ascending aorta August 31, 2019 3. Postoperative atrial fibrillation on anticoagulation with warfarin 4. Hypertension 5. Obstructive sleep apnea 6. CKD , stage III proteinuria Allergies Allergy/AdvReac Type Severity Reaction Status Date / Time morphine Allergy Unknown Hypotension Verified 06/19/20 15:32 Sulfa (Sulfonamide Allergy Unknown SICK, Verified 06/19/20 15:32 Antibiotics) FATIGUE Home Medications Home Medications Medication Instructions Recorded Confirmed Type Centrum Silver Men 1 tab PO QAM 08/16/19 06/19/20 History Probiotic 3,000 mmu cells PO QAM 08/16/19 06/19/20 History aspirin 81 mg PO QAM 08/16/19 06/19/20 History finasteride [Proscar] 5 mg PO HS 08/16/19 06/19/20 History polyethylene glycol 3350 [Miralax] 17 g PO DAILY PRN 08/16/19 06/19/20 History pravastatin [Pravachol] 40 mg PO HS 08/16/19 06/19/20 History terazosin 5 mg PO HS 08/16/19 06/19/20 History acetaminophen 1,000 mg PO Q6H PRN 06/19/20 06/19/20 History cholecalciferol (vitamin D3) 1,000 unit PO DAILY 06/19/20 06/19/20 History lisinopril 5 mg PO QAM 06/19/20 06/19/20 History metoprolol succinate 25 mg PO QPM 06/19/20 06/19/20 History omeprazole magnesium [Prilosec OTC] 20 mg PO QPM 06/19/20 06/19/20 History Patient History Medical History Aneurysm, ascending aorta 4.5 cm per [facility] echo 08/11/19 Benign prostatic hyperplasia CAD (coronary artery disease) Dyslipidemia Esophageal dysmotility (02/23/12) GERD (gastroesophageal reflux disease) Hypertension JEFFERSON (obstructive sleep apnea) Surgical History S/P ascending aortic aneurysm repair Aug 2019 in [place] S/P CABG (coronary artery bypass graft) Aug 2019 in [place] Family History Mother Heart disease Breast cancer Father Heart disease Social History Smoking Status: Former smoker Smoking End Date: 25-30 YEARS AGO; Second Hand Exposure: No; Tobacco Cessation Education Requested by Patient: No Hx Alcohol Use: No Hx Substance Use: No Preferred Language: Mauritian Communication Ability: Effective [place] Required: No Beliefs That Will Affect Care: None marital status: Current Living Situation: Spouse and Family Current Living Situation Comment: [facility] current occupational status: retired current occupation: Retired Other Information That Helps Us Care for You: No Feels Safe at Home: Yes Safety Concerns: Feels Safe At This Time Review of Systems Review of Systems: All systems reviewed & are unremarkable except as noted in HPI & below Nothing additional to add. Physical Exam Physical Exam: General: no acute distress and stated age Head: normocephalic, no masses, lesions, tenderness or abnormalities Eyes: conjunctiva are pink and non-injected, sclera clear Neck: supple, no adenopathy, no bruits, normal jugular venous pulse, no hepatojugular reflux Chest: normal shape and normal respiratory effort Lungs: clear to auscultation and percussion Cardiac Exam: - regular rate & rhythm, no murmurs gallops or rubs - normal S1, normal S2 Pulses: 2(+) throughout Abdomen: abdomen soft, non-tender, no abnormal masses and no hepatosplenomegaly Musculoskeletal: no gait disturbance, no joint inflammation, no deforming arthritis Extremities: no edema and no cyanosis Neuro: grossly normal exam Results & Data ([facility]) Vital Signs (Past 12 Hours) Vital Signs Temp Pulse Pulse Resp BP Pulse Ox 06/20/20 07:53 36.7 C 86 20 123/66 95 06/20/20 07:27 91 H 06/20/20 02:45 36.7 C 84 22 119/77 97 06/19/20 22:59 36.7 C 79 19 125/77 95 Laboratory Results Laboratory Results - last 24 hr 06/19/20 06/19/20 06/19/20 14:48 14:48 14:48 WBC 9.95 RBC 4.36 L Hgb 13.9 L Hct 40.6 L MCV 93.1 MCH 31.9 MCHC 34.2 RDW Std Deviation 44.4 RDW Coeff of Ibrahima 13.0 Plt Count 257 MPV 8.9 Immature Gran % (Auto) 0.3 Neut % (Auto) 67.4 Lymph % (Auto) 22.2 [place] % (Auto) 7.9 Eos % (Auto) 2.0 Baso % (Auto) 0.2 Neut # (Auto) 6.70 H Lymph # (Auto) 2.21 [place] # (Auto) 0.79 H Eos # (Auto) 0.20 Baso # (Auto) 0.02 Immature Gran # (Auto) 0.03 H PT 9.8 INR 0.9 APTT 25.9 PTT Ratio 0.9 D-Dimer 1240 H* Sodium 138 Potassium 3.9 Chloride 105 Carbon Dioxide 25 Anion Gap 8.0 BUN 17 Creatinine 1.92 H Est Cr Clr Drug Dosing Not Reportable Est GFR ( Amer) 38.9 Est GFR (Non-Af Amer) 33.5 BUN/Creatinine Ratio 8.7 L Glucose 121 H Calcium 9.0 Troponin I < 0.015 Triglycerides Cholesterol LDL Cholesterol, Calc VLDL Cholesterol, Calc HDL Cholesterol Cholesterol/HDL Ratio Lipase 262 Hepatitis C Ab Screen 06/19/20 06/20/20 06/20/20 20:15 01:30 01:30 WBC 10.93 H RBC 3.84 L Hgb 12.2 L Hct 35.4 L MCV 92.2 MCH 31.8 MCHC 34.5 RDW Std Deviation 44.0 RDW Coeff of Ibrahima 13.1 Plt Count 209 MPV 8.8 Immature Gran % (Auto) Neut % (Auto) Lymph % (Auto) [place] % (Auto) Eos % (Auto) Baso % (Auto) Neut # (Auto) Lymph # (Auto) [place] # (Auto) Eos # (Auto) Baso # (Auto) Immature Gran # (Auto) PT INR APTT PTT Ratio D-Dimer Sodium Potassium Chloride Carbon Dioxide Anion Gap BUN Creatinine Est Cr Clr Drug Dosing Est GFR ( Amer) Est GFR (Non-Af Amer) BUN/Creatinine Ratio Glucose Calcium Troponin I < 0.015 < 0.015 Triglycerides Cholesterol LDL Cholesterol, Calc VLDL Cholesterol, Calc HDL Cholesterol Cholesterol/HDL Ratio Lipase Hepatitis C Ab Screen 06/20/20 06/20/20 01:30 01:30 WBC RBC Hgb Hct MCV MCH MCHC RDW Std Deviation RDW Coeff of Ibrahima Plt Count MPV Immature Gran % (Auto) Neut % (Auto) Lymph % (Auto) [place] % (Auto) Eos % (Auto) Baso % (Auto) Neut # (Auto) Lymph # (Auto) [place] # (Auto) Eos # (Auto) Baso # (Auto) Immature Gran # (Auto) PT INR APTT PTT Ratio D-Dimer Sodium 139 Potassium 3.8 Chloride 108 H Carbon Dioxide 23 Anion Gap 8.0 BUN 15 Creatinine 1.71 H Est Cr Clr Drug Dosing 42.3 Est GFR ( Amer) 44.7 Est GFR (Non-Af Amer) 38.6 BUN/Creatinine Ratio 8.6 L Glucose 106 H Calcium 8.0 L Troponin I Triglycerides 349 H Cholesterol 144 LDL Cholesterol, Calc 41 VLDL Cholesterol, Calc 70 HDL Cholesterol 33 Cholesterol/HDL Ratio 4 Lipase Hepatitis C Ab Screen Neg Medications Administered Current Inpatient Medications Acetaminophen (Acetaminophen 325 Mg Tab) 650 mg PO Q4H PRN PRN Reason: pain/fever Stop: 07/19/20 19:51 Albuterol (Albuterol Hfa 8 Gm Inhaler) 1 puffs INH QIDR [facility] Stop: 07/20/20 10:59 Aspirin (Aspirin 81 Mg Ectab) 81 mg PO QAM JUN Stop: 07/20/20 08:59 Last Admin: 06/20/20 08:11 Dose: 81 mg Documented by: Finasteride (Finasteride 5 Mg Tab) 5 mg PO HS JUN Stop: 07/19/20 20:59 Last Admin: 06/19/20 21:34 Dose: 5 mg Documented by: Heparin Sodium (Porcine) (Heparin Sod 5,000 Unit/0.5 Ml Vial) 5,000 units SQ Q12 JUN Stop: 07/19/20 20:59 Last Admin: 06/20/20 08:13 Dose: 5,000 units Documented by: Sodium Chloride (Nss 1000ml) 1,000 mls @ 60 mls/hr IV .[id number] [facility] Stop: 06/20/20 12:31 Last Admin: 06/19/20 20:35 Dose: 60 mls/hr Documented by: Ipratropium [place] (Ipratropium [place] Hfa Inhaler) 1 puffs INH QIDR [facility] Stop: 07/20/20 10:59 Lactobacillus Acidophilus (Lactobacillus Acidophilus (Floranex) Tab) 4 tab PO QAM [facility] Stop: 07/20/20 08:59 Last Admin: 06/20/20 08:12 Dose: 4 tab Documented by: Lisinopril (Lisinopril 5 Mg Tab) 5 mg PO QAM [facility] Stop: 07/20/20 08:59 Last Admin: 06/20/20 08:12 Dose: 5 mg Documented by: Metoprolol Succinate (Metoprolol Succ 25mg Ext Rel Tab) 25 mg PO QPM [facility] Stop: 07/19/20 20:59 Last Admin: 06/19/20 21:34 Dose: 25 mg Documented by: Multivitamins/Minerals (Cerovite Adv Formula Tab) 1 tab PO QAM [facility] Stop: 07/20/20 08:59 Last Admin: 06/20/20 08:12 Dose: 1 tab Documented by: Pantoprazole Sodium (Pantoprazole 40 Mg Tab) 40 mg PO QPM [facility] Stop: 07/19/20 20:59 Last Admin: 06/19/20 21:33 Dose: 40 mg Documented by: Polyethylene Glycol (Polyethylene (Miralax) 17 Gm Pack) 17 gm PO DAILY PRN PRN Reason: Constipation Stop: 07/19/20 19:51 Pravastatin Sodium (Pravastatin Sod 40 Mg Tab) 40 mg PO HS [facility] Stop: 07/19/20 20:59 Last Admin: 06/19/20 21:34 Dose: 40 mg Documented by: Terazosin HCl (Terazosin Hcl 5 Mg Cap) 5 mg PO HS [facility] Stop: 07/19/20 20:59 Last Admin: 06/19/20 21:33 Dose: 5 mg Documented by: Vitamin D (Cholecalciferol 1,000 Units 25 Mcg Tab) 1,000 units PO DAILY [facility] Stop: 07/20/20 08:59 Last Admin: 06/20/20 08:11 Dose: 1,000 units Documented by:
--- NOTE | 2020-06-20 10:06 | Electrocardiogram Report ---
Test Reason : Blood Pressure : / mmHG Vent. Rate : 092 BPM Atrial Rate : 092 BPM P-R Int : 154 ms QRS Dur : 084 ms QT Int : 368 ms P-R-T Axes : 061 -31 047 degrees QTc Int : 455 ms Normal sinus rhythm Left axis deviation Poor R wave progression, consider anterior NV vs. lead placement vs. LVH Abnormal ECG When compared with ECG of 18-AUG-2019 06:36, No significant change was found Confirmed by Leon Wilson ([id number]) on 06/20/2020 10:05:59 AM Referred By: Joe Lopez Confirmed By:Leon Wilson
--- NOTE | 2020-06-20 10:28 | Electrocardiogram Report ---
Test Reason : Blood Pressure : / mmHG Vent. Rate : 067 BPM Atrial Rate : 067 BPM P-R Int : 164 ms QRS Dur : 086 ms QT Int : 424 ms P-R-T Axes : 060 -29 038 degrees QTc Int : 448 ms Normal sinus rhythm Minimal voltage criteria for LVH, may be normal variant ( R in aVL ) Poor R wave progression, consider anterior OK vs. lead placement vs. LVH Abnormal ECG When compared with ECG of 19-JUN-2020 18:38, No significant change was found Confirmed by Leon Wilson ([id number]) on 06/20/2020 10:28:14 AM Referred By: Joe Lopez Confirmed By:Leon Wilson
--- NOTE | 2020-06-20 11:30 | Nuclear Medicine Report ---
NUCLEAR PULMONARY PERFUSION SCAN CLINICAL HISTORY: Elevated d-dimer. COMPARISON STUDY: Chest x-ray dated 06/19/2020. TECHNIQUE: A nuclear perfusion scan is performed following the IV administration of 5.06 mCi of techn etium 99m MAA. Perfusion images were acquired in the anterior, posterior, and oblique projections. Th e ventilatory scan was not performed due to Covid restrictions. FINDINGS: A chest x-ray performed 06/19/2020 shows cardiomegaly. There is no evidence of congestive failure. No airspace consolidation or pleural effusion is seen. Perfusion is slightly heterogeneous. No perfusion defects are identified to suggest pulmonary embolus . IMPRESSION: There are no perfusion defects identified to suggest pulmonary embolus. ACT 112: Negative or not required by law. Electronically signed by: Freddy Woods M.D. 06/20/2020 11:29 AM
[2020-06-20] MEDS: IPRATROPIUM BROMIDE HFA INHALER INH SCH ×2 (12:23→14:30)
[2020-06-20] MEDS: ALBUTEROL HFA 8 GM INHALER INH SCH ×2 (12:24→14:30)
[2020-06-20] MEDS ORDERED: IPRATROPIUM BROMIDE/ALBUTEROL respimat INH INH SCH ×2 (13:00→17:00)
--- NOTE | 2020-06-20 13:53 | Hospitalist Progress Note ---
Date of Service June 20, 2020 Assessment & Plan (1) Chest pressure: (2) Fatigue: (3) MERCEDES (dyspnea on exertion): (4) CAD (coronary artery disease): (5) Dyslipidemia: (6) Enlarged aorta: (7) Aneurysm, ascending aorta: (8) History of aortic root repair: (9) Elevated d-dimer: (10) Obesity: (11) JEFFERSON (obstructive sleep apnea): Patient was evaluated in the hospital for chest pressure and dyspnea on exertion for "weeks". He had elevated D-dimer of 1240 ug/L FEU in the ED on 06/19/2020 Patient declined CTA scan because of renal function had multiple studies that ruled out pulmonary embolism, or DVT, or cardiac ischemia, or aortic dissection -A chest x-ray performed 06/19/2020 shows cardiomegaly. There is no evidence of congestive failure. No airspace consolidation or pleural effusion is seen. V/Q scan 06/20/2020 There are no perfusion defects identified to suggest pulmonary embolus. -ultrasound of lower extremities : No evidence of deep venous thrombus within the bilateral lower extremities. -Abdominal ultrasound 06/19/2020 Normal caliber proximal abdominal aorta. The mid to distal abdominal aorta is obscured by overlying bowel gas -troponins negative x 3, echocardiogram 55 to 60% ejection fraction -no acute cardiac telemetry events -06/20/2020: Patient seen and examined in 06/20/2020 He is breathing on room air and able to ambulate in the hallway while on room air. He denied using CPAP in the hospital overnight. He denies any chest pressure today. He denies other systems. He and his was explained all the hospital studies and discharge plans and they are in agreement to go home with outpatient follow up. cardiology service Dr. Nichols evaluated and recommended Combivent inhaler patient has history of smoking but denies formal diagnosis of COPD discharge medication of Combivent inhaler sent electronically to his pharmacy [facility] on [address] [place] [address] patient should continue with CPAP at night upcoming scheduled appointments arrive 1:45 PM for appointment at 2:00 PM Provider Joe Lopez MD Department [facility] 07/18/2020 11:40 AM Provider Sada Soto DO Department Pulmonary Medicine, [facility] 07/29/2020 8:00 AM Provider Nurse [facility] [place] Department Ancillary Department, [place] 08/12/2020 1:00 PM Provider Automotive [employer] Teacher 1 Gw Department Cardiac Studies, [facility] 11/14/2019 10:00 AM Provider Johanne Alvarado PA-C Department Cardiology, [facility] (12) DVT prophylaxis: SC Heparin 5,000 units Q12h while in the hospital 's name is Pita. Admission and Anticipated Discharge Date Admission Date: June 19, 2020 Subjective Patient seen and examined in 06/20/2020 He is breathing on room air and able to ambulate in the hallway while on room air. He denied using CPAP in the hospital overnight. He denies any chest pressure today. He denies other systems. He and his was explained all the hospital studies and discharge plans and they are in agreement to go home with outpatient follow up. patient denies other symptoms Review of Systems Review of Systems: All systems reviewed & are unremarkable except as noted in Subjective Physical Exam Constitutional: WD/WN, vitals as above Eyes: PERRL, conjunctivae normal, anicteric sclerae EOM intact bilaterally ENMT: external ear and nose normal, oropharynx normal Neck: trachea midline, no thyromegaly normal visual inspection Respiratory: normal respiratory effort, lungs clear to auscultation Cardiovascular: Rate/Rhythm: regular rate and regular rhythm Gastrointestinal (Abdomen): normal bowel sounds, soft, nontender, no hepatosplenomegaly Musculoskeletal: Head/Neck/Chest: normocephalic and head atraumatic Neurologic: PERRL, EOMI, accommodation nl, no face palsy, no dysarthria CN's II-XI intact bilaterally Psychiatric: A+Ox3, euthymic affect Results & Data Results & Data ([facility]) Vital Signs (Past 12 Hours) Vital Signs Temp Pulse Pulse Resp BP BP Pulse Ox 06/20/20 12:24 75 16 98 06/20/20 12:00 36.4 C L 72 20 145/83 H 97 06/20/20 07:53 36.7 C 86 20 123/66 95 06/20/20 07:27 91 H 06/20/20 02:45 36.7 C 84 22 119/77 97
--- NOTE | 2020-06-20 13:57 | Discharge Summary ---
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 He is having trouble doing almost anything because of this SOB and Chest pressure. He was recently started with CPAP at home (2-3 days ago). He saw [facility] and was just started on this for JEFFERSON. His SaO2 has been stable, but he states he feels better on oxygen. His CPAP setting in the outpatient record is noted to be 5-20 cmH2O auto titrated. His last Echo was in January and noted EF of 59% with mildly enlarged aortic root. He had his aortic root repair last year in August 2019. He follows with Dr. Jordan for Cardiology as well. Since presentation to the hospital, patient was noted to have elevated DDimer up to 1240. Creatinine was 1.92 which is slightly elevated from baseline. Vitals have been stable. EKG showed NSR on admission. Troponin undetectable. The patient does not wish to have any scans with contrast even after discussing the risks/benefits of the scans vs current renal function. We discussed the possibility of PE and/or changes/problems with his aorta or aortic root graft. He still declined. Principal Diagnosis Chest Pressure Dyspnea on Exertion Elevated D-Dimer Obstructive Sleep Apnea on CPAP History of Aortic Root Repair Obesity Chronic Kidney Disease Stage III Discharge Exam Constitutional comfortable Eyes PERRL, conjunctivae normal, anicteric sclerae EOM intact bilaterally ENMT external ear and nose normal, oropharynx normal Neck trachea midline, no thyromegaly normal visual inspection Respiratory normal respiratory effort, lungs clear to auscultation Cardiovascular RRR, no murmur, no edema Gastrointestinal (Abdomen) normal bowel sounds, soft, nontender, no hepatosplenomegaly Musculoskeletal Head/Neck/Chest: normocephalic and head atraumatic Neurologic PERRL, EOMI, accommodation nl, no face palsy, no dysarthria CN's II-XI intact bilaterally Psychiatric A+Ox3, euthymic affect Discharge Data Allergies Allergy/AdvReac Type Severity Reaction Status Date / Time morphine Allergy Unknown Hypotension Verified 06/19/20 15:32 Sulfa (Sulfonamide Allergy Unknown SICK, Verified 06/19/20 15:32 Antibiotics) FATIGUE Consultations 06/19/20 17:26 ED Decision to Admit Stat 06/19/20 19:52 Consult Cardiology Routine Consult Case Management - Discharge Planning Routine Ordered Studies 06/19/20 17:38 US venous doppler LE BI Stat 06/19/20 19:52 US aorta duplex Stat Hospital Course (1) Chest pressure: (2) Fatigue: (3) MERCEDES (dyspnea on exertion): (4) CAD (coronary artery disease): (5) Dyslipidemia: (6) Enlarged aorta: (7) Aneurysm, ascending aorta: (8) History of aortic root repair: (9) Elevated d-dimer: (10) Obesity: (11) JEFFERSON (obstructive sleep apnea): Patient was evaluated in the hospital for chest pressure and dyspnea on exertion for "weeks". He had elevated D-dimer of 1240 ug/L FEU in the ED on 06/19/2020 Patient declined CTA scan because of renal function of chronic kidney disease stage III had multiple studies that ruled out pulmonary embolism, or DVT, or cardiac ischemia, or aortic dissection -A chest x-ray performed 06/19/2020 shows cardiomegaly. There is no evidence of congestive failure. No airspace consolidation or pleural effusion is seen. V/Q scan 06/20/2020 There are no perfusion defects identified to suggest pulmonary embolus. -ultrasound of lower extremities : No evidence of deep venous thrombus within the bilateral lower extremities. -Abdominal ultrasound 06/19/2020 Normal caliber proximal abdominal aorta. The mid to distal abdominal aorta is obscured by overlying bowel gas -troponins negative x 3, echocardiogram 55 to 60% ejection fraction -no acute cardiac telemetry events -06/20/2020: Patient seen and examined in 06/20/2020 He is breathing on room air and able to ambulate in the hallway while on room air. He denied using CPAP in the hospital overnight. He denies any chest pressure today. He denies other systems. He and his was explained all the hospital studies and discharge plans and they are in agreement to go home with outpatient follow up. cardiology service Dr. Nichols evaluated and recommended Combivent inhaler patient has history of smoking but denies formal diagnosis of COPD discharge medication of Combivent inhaler sent electronically to his pharmacy [facility] on [address], [place] [address] patient should continue with CPAP at night upcoming scheduled appointments arrive 1:45 PM for appointment at 2:00 PM Provider Joe Lopez MD Department Family Practice, [place] 07/18/2020 11:40 AM Provider Sada Soto DO Department Pulmonary Medicine, [facility] 07/29/2020 8:00 AM Provider Nurse [employer] [facility] [place] Department Ancillary Department, [place] 08/12/2020 1:00 PM Provider Systems Lead 1 Department Cardiac Studies, [facility] 11/14/2019 10:00 AM Provider Johanne Alvarado PA-C Department Cardiology, [facility] (12) DVT prophylaxis: SC Heparin 5,000 units Q12h while in the hospital 's name is Pita. By CMS guidelines, a determination that the admission or continued stay is not medically necessary has been made by a member of the UR committee and a physician for this hospital stay, therefore a Code 44 will be completed and the Inpatient admission will be changed to outpatient. Total Time Total Time Spent Total Time Spent (In Minutes): 40 minutes Total Time Includes: Examination of the Patient, Discharge Planning, Medication Reconciliation and Communication With Other Providers Discharge Plan Discharge Items Patient Disposition: Home - Self-Care Reason For Visit: CHEST PRESSURE, MERCEDES Discharge Diagnosis: Chest Pressure Dyspnea on Exertion Elevated D-Dimer Obstructive Sleep Apnea on CPAP History of Aortic Root Repair Obesity Chronic Kidney Disease Stage III Condition on Discharge: Good Activity: Resume your previous activity Non-emergency contact: Primary Care Provider Call non-emergency contact if: you have any medication questions Follow-up/Referrals: Joe Lopez MD [Primary Care Provider] - Diet: Heart Healthy Addtl Attending Provider Instructions: Patient was evaluated in the hospital for chest pressure and dyspnea on exertion for "weeks". He had elevated D-dimer of 1240 ug/L FEU in the ED on 06/19/2020 Patient declined CTA scan because of renal function had multiple studies that ruled out pulmonary embolism, or DVT, or cardiac ischemia, or aortic dissection -A chest x-ray performed 06/19/2020 shows cardiomegaly. There is no evidence of congestive failure. No airspace consolidation or pleural effusion is seen. V/Q scan 06/20/2020 There are no perfusion defects identified to suggest pulmonary embolus. -ultrasound of lower extremities : No evidence of deep venous thrombus within the bilateral lower extremities. -Abdominal ultrasound 06/19/2020 Normal caliber proximal abdominal aorta. The mid to distal abdominal aorta is obscured by overlying bowel gas -troponins negative x 3, echocardiogram 55 to 60% ejection fraction -no acute cardiac telemetry events cardiology service Dr. Nichols evaluated and recommended Combivent inhaler patient has history of smoking but denies formal diagnosis of COPD discharge medication of Combivent inhaler sent electronically to his pharmacy [facility] on [address] [address] patient should continue with CPAP at night upcoming scheduled appointments arrive 1:45 PM for appointment at 2:00 PM Provider [facility] 11:40 AM Provider Sada Soto DO Department Pulmonary Medicine, [facility] 07/29/2020 8:00 AM Provider Nurse [employer] [place] Department Ancillary Department, [place] 08/12/2020 1:00 PM Provider Systems Lead 1 Department Cardiac Studies, [facility] 11/14/2019 10:00 AM Provider TONIO JaimesC Department Cardiology, [facility] Pending Studies at Discharge: No Stand-Alone Forms: My [facility] [employer], Smoking Cessation Medications and DC Order Prescriptions: New Combivent Respimat 20-100 mcg/actuation mist 1 puff inhalation QID Qty: 4 RF: 0 Continued terazosin 5 mg capsule 5 mg PO HS RF: 0 pravastatin [Pravachol] 40 mg tablet 40 mg PO HS RF: 0 aspirin 81 mg Tablet,Delayed Release (Dr/Ec) 81 mg PO QAM RF: 0 polyethylene glycol 3350 [Miralax] 17 gram/dose Powder 17 g PO DAILY PRN (Reason: Constipation) RF: 0 finasteride [Proscar] 5 mg tablet 5 mg PO HS RF: 0 Centrum Silver Men 300-600-300 mcg Tablet 1 tab PO QAM RF: 0 Probiotic 3 billion cell Capsule 3,000 mmu cells PO QAM RF: 0 acetaminophen 500 mg Tablet 1,000 mg PO Q6H PRN (Reason: Pain) RF: 0 lisinopril 5 mg tablet 5 mg PO QAM RF: 0 metoprolol succinate 25 mg tablet extended release 24 hr 25 mg PO QPM RF: 0 omeprazole magnesium [Prilosec OTC] 20 mg Tablet,Delayed Release (Dr/Ec) 20 mg PO QPM RF: 0 cholecalciferol (vitamin D3) 25 mcg (1,000 unit) Capsule 1,000 unit PO DAILY RF: 0 Discharge Orders: Discharge Order (Routine); Ordered 06/20/20 Ordered By: Ousmane Vang Admission Data Admit Date/Time: 06/19/20 18:03 Attending Provider: Ousmane Vang Admit Provider: Ousmane Vang Primary Care Provider: Joe Lopez Other Providers: Ousmane Vang ; Chris Pérez
== END 2020-06-20 14:34 | disposition home or self-care (01) | DRG 313 ==
LOC: ED 14:42 → 2N 18:03

== ENCOUNTER 2021-08-13 12:52 | Inpatient (IN) ==
[2021-08-13] MEDS ORDERED: SODIUM CHLORIDE 0.9% 1000ML 500 ML IV ONE (13:24)
[2021-08-13] MEDS ORDERED: ONDANSETRON INJ 2 MG/ML 2 ML VIAL IV STA (13:24)
[2021-08-13] MEDS ORDERED: fentaNYL citrate 100 MCG/2 ML VIAL IV PRN (13:24)
[2021-08-13 13:30] LABS: Basophils # (auto) 0.02 K/uL (0-0.2); Basophils % (auto) 0.1 %; Eosinophils % (auto) 0.7 %; Hematocrit (blood only) 42.8 % (42-52); Immature Granulocytes # (auto) 0.02 K/uL (0.00-0.02); Immature Granulocytes % (auto) 0.1 %; Lymphocytes # (auto) 1.69 K/uL (1.2-3.4); Lymphocytes % (auto) 12.3 %; Mean Corpuscular Hemoglobin 32.8 pg (25-34); Mean Corpuscular Volume 93.7 fL (80-100); Mean Platelet Volume 8.9 fL (7.4-10.4); Monocytes # (auto) 1.54 K/uL (0.11-0.59); Monocytes % (auto) 11.2 %; Neutrophils % (auto) 75.6 %; Platelet Count 261 K/uL (130-400); RDW Coefficient of Variation 13.1 % (11.5-14.5); Red Blood Count 4.57 M/uL (4.7-6.1); White Blood Count 13.77 K/uL (4.8-10.8)
--- NOTE | 2021-08-13 13:32 | XRay Report ---
XR chest 1V portable CLINICAL HISTORY: Atypical chest pain. COMPARISON STUDY: Chest radiograph June 19, 2020. FINDINGS: Mediastinal wires are noted. There are mediastinal surgical clips. There is no pneumothorax or pleural effusion. Cardiomegaly is noted. Upper mediastinal widening is unchanged. There is no roxanne dence for pulmonary edema. IMPRESSION: No acute cardiopulmonary findings. Cardiomegaly. ACT 112: Negative or not required by law. Electronically signed by: Zach Sanders M.D. 08/13/2021 1:31 PM
[2021-08-13 13:41] LABS: Partial Thromboplastin Time 26.2 Seconds (21.0-31.0); Prothrombin Time 9.8 Seconds (9.0-12.0)
--- NOTE | 2021-08-13 13:45 | Emergency Department Note ---
Impression & Plan Acute cholecystitis, Abdominal pain, acute, epigastric ED Provider Note NAME: JULIO DAY Jr AGE: 76 SEX: M : 1945 ARRIVES VIA: Walk-In INFORMANT: Patient, ED PROVIDER(S): Sandip Schmidt DO CHIEF COMPLAINT: Abdominal pain HPI: The patient is a 76-year-old male who has a history of thoracic aortic aneurysm repair who presented to the emergency department for an evaluation of epigastric pain. The patient states he started noticing epigastric pain overnight. He states it felt like a boring pain which was sharp. He notices nausea but no vomiting. He denies having any chest pain. He does complain of some shortness of breath. The patient has never had similar symptoms in the past. He is not been seen by provider prior to coming to the emergency department. He describes the pain as intermittent and sharp at times. It does not radiate to his back. He denies having any lower abdominal pain. He still has his gallbladder. He states he was never known to have any abnormality with his abdominal aorta. The patient states has been compliant with all of his usual outpatient medications. ROS: See above HPI for pertinent positives & negatives. A total of 10 systems reviewed and were otherwise negative. PAST MEDICAL HISTORY: See Below PAST SURGICAL HISTORY: See Below FAMILY HISTORY: See Below SOCIAL HISTORY: See Below HOME MEDICATIONS: See Below ALLERGIES: See Below VITALS: See Below PHYSICAL EXAMINATION: GENERAL: The patient is awake and alert. The patient is very anxious and uncomfortable appearing. EYES: The conjunctivae are clear. The pupils are round and reactive. EARS, NOSE, MOUTH AND THROAT: The nose is without any evidence of any deformity. NECK: The neck is nontender and supple. RESPIRATORY: Normal respiratory effort is noted there is no evidence of wheezing rhonchi or rales CARDIOVASCULAR: Regular rate and rhythm noted there no murmurs rubs or gallops normal S1 normal S2. GASTROINTESTINAL: The abdomen is mildly distended. There is significant e pigastric as well as right upper quadrant tenderness to palpation. Mild guarding is noted in the right upper quadrant. MUSCULOSKELETAL/EXTREMITIES: There is no evidence of gross deformity full range of motion is noted in the hips and shoulders. SKIN: Skin is warm and dry. Trace pedal edema was noted bilaterally. NEUROLOGIC: Patient is awake alert and oriented x3. MEDICAL DECISION MAKING: The patient is a 76-year-old male who presented to the emergency department for an evaluation of upper abdominal pain. The patient had very severe upper abdominal pain which began earlier today but continues through the day. The patient has a history of aortic aneurysm repair. I was concerned for a vascular problem so CT the chest abdomen pelvis was obtained to rule out a significant vascular abnormality. Ultimately the patient was found to have multiple hepatic cysts which appeared previously but also signs of cholecystitis on CT. Laboratory results did not reveal a significant elevation in LFTs or an elevated lipase. He was treated with IV fluids IV pain medication and IV antiemetics. He was also started on IV antibiotics. I discussed the patient's laboratory and radiographic studies with him. I also discussed his case with the on-call [facility] hospitalist group. They have agreed to evaluate the patient in the emergency department for further management and disposition. Triage Nursing notes reviewed. Prior medical records reviewed Vital Signs: reviewed and remarkable for no significant abnormalities Differential diagnosis: Etiologies such as appendicitis, diverticulitis, obstruction, inflammatory bowel disease, renal colic, PUD, biliary pathology, pancreatitis, mesenteric ischemia, aortic pathology, infections, genitourinary, UTI, perforated viscus, as well as others were entertained. ER treatment provided: See below Diagnostics interpreted by me: ECG: EKG was obtained in the emergency department. My interpretation is normal sinus rhythm at 82 bpm. There was no ectopy. Lateral ST segment abnormalities were noted. This was compared to a tracing from June 202019. The ST segment abnormalities appear increased compared to the earlier tracing. Cardiac Monitoring: An order was placed for continuous cardiac monitoring. The monitor shows a rate of 76 bpm with sinus rhythm. Laboratory studies: As stated above and show below. Imaging studies: See below Consultation(s): I discussed this case with Dr. Charles who is on-call for the [facility] hospitalist group. He will evaluate the patient in the emergency department for further management and disposition. Past Med/Surg History Medical History Aneurysm, ascending aorta HX OF - 4.5 cm per Labs on the Go echo 08/11/19...SURGICALLY REPAIRED Benign prostatic hyperplasia CAD (coronary artery disease) Dyslipidemia Esophageal dysmotility (02/23/12) PT DENIES , DENIES TROUBLE SWALLOWING GERD (gastroesophageal reflux disease) Hypertension JEFFERSON (obstructive sleep apnea) CPAP SOB (shortness of breath) on exertion PT HX INHALER - REPORTS WAS UNABLE TO AFFORD AND INHALER D/C'D...CPAP USE...PT REPORTS THINKS SOB MAY BE RELATED TO AMOUNT OF BLOOD PRESSURE MEDICINE HE TAKES AND PLANS TO DISCUSS WITH DR Surgical History History of cataract surgery RT History of colonoscopy History of removal of cyst BEHIND EAR History of shoulder surgery S/P ascending aortic aneurysm repair Aug 2019 in [place] (TRIPLE BYPASS AND ANEURYSM REPAIR 1 SURGICAL PROCEDURE) S/P CABG (coronary artery bypass graft) Aug 2019 in [place] (TRIPLE BYPASS AND ANEURYSM REPAIR 1 SURGICAL PROCEDURE) Family History Mother Heart disease Breast cancer Father Heart disease Social History Smoking Status: Former smoker Second Hand Exposure: Yes (IN THE PAST); Hx Alcohol Use: Yes Hx Substance Use: No Preferred Language: Cuban Communication Ability: Effective Mine Surveyor Required: No Beliefs That Will Affect Care: None marital status: Current Living Situation: Spouse Current Living Situation Comment: [facility] current occupational status: retired current occupation: Retired Feels Safe at Home: Yes Assistive Devices: None Allergies Allergies Allergy/AdvReac Type Severity Reaction Status Date / Time morphine AdvReac Mild Hypotension, Verified 08/13/21 14:56 "MAKES ME MEAN" Sulfa (Sulfonamide AdvReac Mild NAUSEA, Verified 08/13/21 14:56 Antibiotics) FATIGUE Home Meds Home Medications Medication Instructions Recorded Confirmed aspirin 81 mg tablet,delayed 81 mg PO QAM 08/16/19 08/13/21 release finasteride 5 mg tablet (Proscar) 5 mg PO HS 08/16/19 08/13/21 lactobacillus combination no.4 3 3,000 mmu cells PO QAM 08/16/19 08/13/21 billion cell capsule (Probiotic) ygdthikl-ows-mxkqo acid 300 1 tab PO QAM 08/16/19 08/13/21 mcg-lycopene 600 mcg-lutein 300 mcg tablet (Centrum Silver Men) polyethylene glycol 3350 17 17 g PO DAILY PRN 08/16/19 08/13/21 gram/dose oral powder (Miralax) acetaminophen 500 mg tablet 1,000 mg PO Q6H PRN 06/19/20 08/13/21 cholecalciferol (vitamin D3) 25 1,000 unit PO DAILY 06/19/20 08/13/21 mcg (1,000 unit) capsule lisinopril 5 mg tablet 5 mg PO QAM 06/19/20 08/13/21 metoprolol succinate 25 mg 25 mg PO QPM 06/19/20 08/13/21 tablet,extended release 24 hr omeprazole magnesium 20 mg 20 mg PO QPM 06/19/20 08/13/21 tablet,delayed release (Prilosec OTC) tamsulosin 0.4 mg capsule 0.4 mg PO HS 03/23/21 08/13/21 ezetimibe 10 mg tablet 10 mg PO DAILY 08/13/21 08/13/21 pravastatin 40 mg tablet 40 mg PO HS 08/13/21 08/13/21 Results & Data (ED) Vital Signs Vital Signs - 24 hr 08/13/21 12:59 08/13/21 13:29 08/13/21 13:30 Temperature 37.0 C Temperature Source Temporal Artery Scan Pulse Rate 89 79 74 Pulse Rhythm Regular Respiratory Rate 18 22 21 Respiratory Effort / Characteristics Non-Labored Respiratory Depth Normal Blood Pressure 131/77 Blood Pressure Mean 95 Pulse Oximetry 95 Oxygen Delivery Method Room Air Sepsis Recent Fever Within 48 Hours No Sepsis New/Unexplained Change in Mental Status N/A Sepsis Action Taken by Nursing No Action Required 08/13/21 13:40 08/13/21 13:50 08/13/21 14:00 Temperature Temperature Source Pulse Rate 81 82 85 Pulse Rhythm Respiratory Rate 20 18 16 Respiratory Effort / Characteristics Respiratory Depth Blood Pressure Blood Pressure Mean Pulse Oximetry Oxygen Delivery Method Sepsis Recent Fever Within 48 Hours Sepsis New/Unexplained Change in Mental Status Sepsis Action Taken by Nursing 08/13/21 14:21 08/13/21 14:30 08/13/21 14:40 Temperature Temperature Source Pulse Rate 76 70 72 Pulse Rhythm Respiratory Rate 16 19 20 Respiratory Effort / Characteristics Respiratory Depth Blood Pressure Blood Pressure Mean Pulse Oximetry Oxygen Delivery Method Sepsis Recent Fever Within 48 Hours Sepsis New/Unexplained Change in Mental Status Sepsis Action Taken by Nursing 08/13/21 14:50 08/13/21 15:00 08/13/21 15:10 Temperature Temperature Source Pulse Rate 70 76 68 Pulse Rhythm Respiratory Rate 17 24 28 H Respiratory Effort / Characteristics Respiratory Depth Blood Pressure 136/78 Blood Pressure Mean 97 Pulse Oximetry Oxygen Delivery Method Sepsis Recent Fever Within 48 Hours Sepsis New/Unexplained Change in Mental Status Sepsis Action Taken by Nursing 08/13/21 15:20 Temperature Temperature Source Pulse Rate 66 Pulse Rhythm Respiratory Rate 24 Respiratory Effort / Characteristics Respiratory Depth Blood Pressure 125/69 Blood Pressure Mean 87 Pulse Oximetry Oxygen Delivery Method Sepsis Recent Fever Within 48 Hours Sepsis New/Unexplained Change in Mental Status Sepsis Action Taken by Detention Medications Current Medication List: was personally reviewed by me Laboratory Data Attestation: I reviewed the patient's lab results. Result diagrams: 08/14/21 08:05 08/14/21 08:05 Lab Results 08/13/21 08/13/21 08/13/21 Range/Units 13:14 13:14 13:14 WBC 13.77 H (4.8-10.8) K/uL RBC 4.57 L (4.7-6.1) M/uL Hgb 15.0 (14.0-18.0) g/dL Hct 42.8 (42-52) % MCV 93.7 (80-100) fL MCH 32.8 (25-34) pg MCHC 35.0 (32-36) g/dL RDW Std Deviation 45.0 (36.4-46.3) fL RDW Coeff of Ibrahima 13.1 (11.5-14.5) % Plt Count 261 (130-400) K/uL MPV 8.9 (7.4-10.4) fL Immature Gran % (Auto) 0.1 % Neut % (Auto) 75.6 % Lymph % (Auto) 12.3 % [place] % (Auto) 11.2 % Eos % (Auto) 0.7 % Baso % (Auto) 0.1 % Neut # (Auto) 10.40 H (1.4-6.5) K/uL Lymph # (Auto) 1.69 (1.2-3.4) K/uL Teton # (Auto) 1.54 H (0.11-0.59) K/uL Eos # (Auto) 0.10 (0-0.5) K/uL Baso # (Auto) 0.02 (0-0.2) K/uL Immature Gran # (Auto) 0.02 (0.00-0.02) K/uL PT 9.8 (9.0-12.0) Seconds INR 1.0 (0.9-1.1) APTT 26.2 (21.0-31.0) Seconds PTT Ratio 1.0 Sodium 136 (136-145) mmol/L Potassium 3.9 (3.5-5.1) mmol/L Chloride 103 (98-107) mmol/L Carbon Dioxide 25 (21-32) mmol/L Anion Gap 8.0 (3-11) BUN 21 H (7-18) mg/dl Creatinine 1.63 H (0.6-1.4) mg/dl Est Cr Clr Drug Dosing 42.4 ml/min Est GFR ( Amer) 47.1 ml/min Est GFR (Non-Af Amer) 40.6 ml/min BUN/Creatinine Ratio 13.1 (10-20) Glucose 86 (70-99) mg/dl Calcium 8.9 (8.5-10.1) mg/dl Total Bilirubin 0.7 (0.2-1) mg/dl AST 35 (15-37) U/L ALT 68 (12-78) U/L Alkaline Phosphatase 89 (45-117) U/L Troponin I < 0.015 (0-0.045) ng/ml Total Protein 7.9 (6.4-8.2) gm/dl Albumin 3.6 (3.4-5.0) gm/dl Globulin 4.3 H (2.5-4.0) gm/dl Albumin/Globulin Ratio 0.8 L (0.9-2) Lipase 251 (73-393) U/L COVID-19 Eval Order SARS-CoV-2 (PCR) (Negative) 08/13/21 08/13/21 Range/Units 15:16 15:16 WBC (4.8-10.8) K/uL RBC (4.7-6.1) M/uL Hgb (14.0-18.0) g/dL Hct (42-52) % MCV (80-100) fL MCH (25-34) pg MCHC (32-36) g/dL RDW Std Deviation (36.4-46.3) fL RDW Coeff of Ibrahima (11.5-14.5) % Plt Count (130-400) K/uL MPV (7.4-10.4) fL Immature Gran % (Auto) % Neut % (Auto) % Lymph % (Auto) % [place] % (Auto) % Eos % (Auto) % Baso % (Auto) % Neut # (Auto) (1.4-6.5) K/uL Lymph # (Auto) (1.2-3.4) K/uL [place] # (Auto) (0.11-0.59) K/uL Eos # (Auto) (0-0.5) K/uL Baso # (Auto) (0-0.2) K/uL Immature Gran # (Auto) (0.00-0.02) K/uL PT (9.0-12.0) Seconds INR (0.9-1.1) APTT (21.0-31.0) Seconds PTT Ratio Sodium (136-145) mmol/L Potassium (3.5-5.1) mmol/L Chloride (98-107) mmol/L Carbon Dioxide (21-32) mmol/L Anion Gap (3-11) BUN (7-18) mg/dl Creatinine (0.6-1.4) mg/dl Est Cr Clr Drug Dosing ml/min Est GFR ( Amer) ml/min Est GFR (Non-Af Amer) ml/min BUN/Creatinine Ratio (10-20) Glucose (70-99) mg/dl Calcium (8.5-10.1) mg/dl Total Bilirubin (0.2-1) mg/dl AST (15-37) U/L ALT (12-78) U/L Alkaline Phosphatase (45-117) U/L Troponin I (0-0.045) ng/ml Total Protein (6.4-8.2) gm/dl Albumin (3.4-5.0) gm/dl Globulin (2.5-4.0) gm/dl Albumin/Globulin Ratio (0.9-2) Lipase (73-393) U/L COVID-19 Eval Order Covid19 at [facility] SARS-CoV-2 (PCR) NEGATIVE (Negative) Administered Medications Heparin Sodium (Porcine) (Heparin Sod 5,000 Unit/0.5 Ml Vial) 5,000 units SQ Q12 JUN Stop: 09/12/21 20:59 Last Admin: 08/14/21 09:11 Dose: Not Given Documented by: [id number] Admin: 08/13/21 21:54 Dose: 5,000 units Documented by: [id number] Hydromorphone HCl (Hydromorphone Inj 0.5 Mg/0.5 Ml Syr) 0.5 mg IV Q3H PRN PRN Reason: Pain Stop: 08/27/21 17:08 Last Admin: 08/14/21 08:10 Dose: 0.5 mg Documented by: [id number] Piperacillin Sod/Tazobactam (Sod 3.375 gm/ Dextrose) 115 mls @ 28.75 mls/hr IV Q8H JUN; Protocol Stop: 08/23/21 20:59 Last Infusion: 08/14/21 09:11 Dose: 0 mls/hr Documented by: [id number] Admin: 08/14/21 04:56 Dose: 28.8 mls/hr Documented by: [id number] Infusion: 08/14/21 02:27 Dose: 0 mls/hr Documented by: [id number] Admin: 08/13/21 21:53 Dose: 28.8 mls/hr Documented by: [id number] Potassium Chloride/Sodium Chloride (Normal Saline W/20 Meq Kcl) 20 meq in 1,000 mls @ 100 mls/hr IV .Q10H JUN Stop: 08/15/21 12:59 Last Infusion: 08/14/21 09:10 Dose: 0 mls/hr Documented by: [id number] Admin: 08/13/21 21:53 Dose: 100 mls/hr Documented by: [id number] Metoprolol Tartrate (Metoprolol Tartrate 1 Mg/Ml Vial) 2.5 mg IV Q6 [facility] Stop: 09/13/21 00:00 Last Admin: 08/14/21 06:07 Dose: 2.5 mg Documented by: [id number] Admin: 08/14/21 00:26 Dose: 2.5 mg Documented by: [id number] Discontinued Medications Fentanyl Citrate (Fentanyl Citrate 100 Mcg/2 Ml Vial) 50 mcg IV Q15M PRN PRN Reason: Pain Stop: 08/27/21 13:23 Last Admin: 08/13/21 13:51 Dose: 50 mcg Documented by: [id number] Hydromorphone HCl (Hydromorphone Inj 0.5 Mg/0.5 Ml Syr) 0.5 mg IV Q6H PRN PRN Reason: Pain Stop: 08/27/21 17:08 Last Admin: 08/14/21 05:07 Dose: 0.5 mg Documented by: [id number] Admin: 08/13/21 22:27 Dose: 0.5 mg Documented by: [id number] Hydromorphone HCl (Hydromorphone Inj 0.5 Mg/0.5 Ml Syr) 0.5 mg IV NOW STA Stop: 08/14/21 01:43 Last Admin: 08/14/21 01:47 Dose: 0.5 mg Documented by: [id number] Sodium Chloride (Nss 1000ml) 500 mls @ 999 mls/hr IV .Q31M ONE Stop: 08/13/21 13:54 Last Infusion: 08/13/21 14:22 Dose: 0 mls/hr Documented by: [id number] Admin: 08/13/21 13:51 Dose: 999 mls/hr Documented by: [id number] Piperacillin Sod/Tazobactam Sod (Zosyn) 4.5 gm in 120 mls @ 240 mls/hr IV NOW ONE Stop: 08/13/21 15:10 Last Infusion: 08/13/21 15:44 Dose: 0 mls/hr Documented by: [id number] Admin: 08/13/21 15:14 Dose: 240 mls/hr Documented by: [id number] Promethazine HCl 12.5 mg/ (Sodium Chloride) 50.5 mls @ 202 mls/hr IV NOW STA Stop: 08/14/21 01:56 Last Infusion: 08/14/21 02:28 Dose: 0 mls/hr Documented by: [id number] Admin: 08/14/21 02:14 Dose: 202 mls/hr Documented by: [id number] Ioversol (Optiray 320 125ml) 112 ml IV ONCE ONE Stop: 08/13/21 14:21 Last Admin: 08/13/21 14:20 Dose: 112 ml Documented by: [id number] Ondansetron HCl (Ondansetron Inj 2 Mg/Ml 2 Ml Vial) 4 mg IV NOW STA Stop: 08/13/21 13:25 Last Admin: 08/13/21 13:52 Dose: 4 mg Documented by: [id number] Imaging Data Radiologist's Impression: Chest X-Ray 08/13/21 13:02 XR chest 1V portable CLINICAL HISTORY: Atypical chest pain. COMPARISON STUDY: Chest radiograph June 19, 2020. FINDINGS: Mediastinal wires are noted. There are mediastinal surgical clips. There is no pneumothorax or pleural effusion. Cardiomegaly is noted. Upper mediastinal widening is unchanged. There is no evidence for pulmonary edema. IMPRESSION: No acute cardiopulmonary findings. Cardiomegaly. ACT 112: Negative or not required by law. Electronically signed by: Zach Sanders M.D. 08/13/2021 1:31 PM Abdomen/Pelvis CT 08/13/21 13:27 CT OF THE ABDOMEN AND PELVIS WITH CONTRAST CLINICAL HISTORY: Epigastric pain. COMPARISON STUDY: CT of the abdomen and pelvis July 28, 2009. TECHNIQUE: Following IV administration of 112 mL of Optiray, axial images of the abdomen and pelvis were obtained from the lung bases to the proximal femurs. Images were reviewed in the axial, sagittal, and coronal planes. IV contrast was administered without complication. Automated exposure control was utilized for the study. A dose lowering technique was utilized adhering to the principles of ALARA. FINDINGS: Please note that the chest CT will be reported separately. Cardiomegaly is noted. Numerous hepatic cysts measure up to 11.2 cm. There is hepatic steatosis. There is no biliary or pancreatic ductal dilatation. There is a 5 mm calcified stone within the cystic duct. Gallbladder is mildly distended. There is mild pericholecystic infiltration. Water attenuation bilateral renal lesions reflect cysts. There is no hydronephrosis. Spleen, adrenal glands and pancreas are unremarkable. There is no evidence for a bowel obstruction. The caliber and wall thickness of small and large bowel are normal. No lymphadenopathy is present. Prostate is enlarged, measuring 4.9 cm in transverse dimension. No acute fracture or suspicious lesion is identified within the visua lized skeletal structures. IMPRESSION: 1. 5 mm calcific stone within the cystic duct. Mildly distended gallbladder with mild pericholecystic infiltration. The findings favor acute cholecystitis. 2. Numerous hepatic cysts. Hepatic steatosis. 3. No bowel obstruction. No bowel wall thickening. ACT 112: Negative or not required by law. Electronically signed by: Zach Sanders M.D. 08/13/2021 2:37 PM Chest CTA 08/13/21 13:27 CT ANGIOGRAPHY OF THE CHEST, PULMONARY EMBOLUS PROTOCOL CLINICAL HISTORY: Chest pain. Chest pressure. Nausea. Evaluate for pulmonary embolus. COMPARISON STUDY: Chest radiograph June 19, 2020 and August 13, 2021. TECHNIQUE: Following IV administration of 112 mL of Optiray, helical axial images of the chest were obtained utilizing the pulmonary embolus protocol. Maximal intensity projections and sagittal and coronal reformats were viewed on an independent 3D workstation. IV contrast was administered without complication. Automated exposure control was utilized for the study. A dose lowering technique was utilized adhering to the principles of ALARA. CT DOSE: 1826.74 mGy.cm FINDINGS: No pulmonary emboli are identified. There is no thoracic aortic dissection. Moderate cardiomegaly is noted. There are median sternotomy wires and postoperative findings from bypass grafting. No sonographic lymphadenopathy is present. No pneumothorax or pleural effusion is noted. There is no consolidation to suggest pneumonia. Mild groundglass opacities favor atelectasis. Central airways are patent. Abdomen and pelvis will be reported separately. Numerous hepatic cysts and hepatic steatosis are better depicted on that exam. IMPRESSION: 1. No pulmonary emboli identified. 2. No acute process within the chest. 3. Cardiomegaly. ACT 112: Negative or not required by law. Electronically signed by: Zach Sanders M.D. 08/13/2021 2:29 PM Discharge Plan Visit Data Chief Complaint: Abdominal Pain Stated Complaint: ABD PAIN,CHEST PAIN ED Provider: Sandip Schmidt Discharge Problem: Acute cholecystitis, Abdominal pain, acute, epigastric Patient Disposition: Admitted As Inpatient Discharge Instructions Interventions: ED Discharge Assessment Last Done: 08/14/21 01:18
[2021-08-13 13:48] LABS: Alanine Aminotransferase 68 U/L (12-78); Albumin Level 3.6 gm/dl (3.4-5.0); Aspartate Aminotransferase 35 U/L (15-37); BUN Creatinine Ratio 13.1 (10-20); Blood Urea Nitrogen 21 mg/dl (7-18); Calcium 8.9 mg/dl (8.5-10.1); Carbon Dioxide 25 mmol/L (21-32); Chloride 103 mmol/L (98-107); Creatinine Clr Calc Pharmacy 42.4 ml/min; Est GFR (African American) 47.1 ml/min; Est GFR (Non-African American) 40.6 ml/min; Glucose 86 mg/dl (70-99); Lipase 251 U/L (73-393); Potassium 3.9 mmol/L (3.5-5.1); Sodium 136 mmol/L (136-145)
[2021-08-13 13:53] LABS: Albumin Globulin Ratio 0.8 (0.9-2); Alkaline Phosphatase 89 U/L (45-117); Bilirubin,Total 0.7 mg/dl (0.2-1); Globulin 4.3 gm/dl (2.5-4.0); Total Protein 7.9 gm/dl (6.4-8.2); Troponin I < 0.015 ng/ml (0-0.045)
[2021-08-13] MEDS ORDERED: OPTIRAY 320 125ml IV ONE (14:20)
--- NOTE | 2021-08-13 14:30 | CT Scan Report ---
CT ANGIOGRAPHY OF THE CHEST, PULMONARY EMBOLUS PROTOCOL CLINICAL HISTORY: Chest pain. Chest pressure. Nausea. Evaluate for pulmonary embolus. COMPARISON STUDY: Chest radiograph June 19, 2020 and August 13, 2021. TECHNIQUE: Following IV administration of 112 mL of Optiray, helical axial images of the chest were o btained utilizing the pulmonary embolus protocol. Maximal intensity projections and sagittal and cor onal reformats were viewed on an independent 3D workstation. IV contrast was administered without co mplication. Automated exposure control was utilized for the study. A dose lowering technique was ut ilized adhering to the principles of ALARA. CT DOSE: 1826.74 mGy.cm FINDINGS: No pulmonary emboli are identified. There is no thoracic aortic dissection. Moderate cardi omegaly is noted. There are median sternotomy wires and postoperative findings from bypass grafting. No sonographic lymphadenopathy is present. No pneumothorax or pleural effusion is noted. There is no consolidation to suggest pneumonia. Mild groundglass opacities favor atelectasis. Central airways are patent. Abdomen and pelvis will be reported separately. Numerous hepatic cysts and hepatic steatosis are better depicted on that exam. IMPRESSION: 1. No pulmonary emboli identified. 2. No acute process within the chest. 3. Cardiomegaly. ACT 112: Negative or not required by law. Electronically signed by: Zach Sanders M.D. 08/13/2021 2:29 PM
--- NOTE | 2021-08-13 14:38 | CT Scan Report ---
CT OF THE ABDOMEN AND PELVIS WITH CONTRAST CLINICAL HISTORY: Epigastric pain. COMPARISON STUDY: CT of the abdomen and pelvis July 28, 2009. TECHNIQUE: Following IV administration of 112 mL of Optiray, axial images of the abdomen and pelvis w ere obtained from the lung bases to the proximal femurs. Images were reviewed in the axial, sagittal, and coronal planes. IV contrast was administered without complication. Automated exposure control w as utilized for the study. A dose lowering technique was utilized adhering to the principles of CHANA Oliva. FINDINGS: Please note that the chest CT will be reported separately. Cardiomegaly is noted. Numerous hepatic cysts measure up to 11.2 cm. There is hepatic steatosis. There is no biliary or pancreatic du ctal dilatation. There is a 5 mm calcified stone within the cystic duct. Gallbladder is mildly disten ded. There is mild pericholecystic infiltration. Water attenuation bilateral renal lesions reflect cy sts. There is no hydronephrosis. Spleen, adrenal glands and pancreas are unremarkable. There is no ev idence for a bowel obstruction. The caliber and wall thickness of small and large bowel are normal. N o lymphadenopathy is present. Prostate is enlarged, measuring 4.9 cm in transverse dimension. No acut e fracture or suspicious lesion is identified within the visualized skeletal structures. IMPRESSION: 1. 5 mm calcific stone within the cystic duct. Mildly distended gallbladder with mild pericholecystic infiltration. The findings favor acute cholecystitis. 2. Numerous hepatic cysts. Hepatic steatosis. 3. No bowel obstruction. No bowel wall thickening. ACT 112: Negative or not required by law. Electronically signed by: Zach Sanders M.D. 08/13/2021 2:37 PM
[2021-08-13] MEDS ORDERED: PIPERACILL/TAZOBAC CONSULT ACTIVE PRN ×2 (14:41→17:07)
[2021-08-13] MEDS ORDERED: PIPERACILLIN/TAZOBACTAM 4.5 GM/120 ML BAG IV ONE (14:41)
--- NOTE | 2021-08-13 17:12 | Ultrasound Report ---
US gallbladder CLINICAL HISTORY: Abdominal pain. Evaluate for cholecystitis. COMPARISON STUDY: CT of the abdomen and pelvis performed earlier today. FINDINGS: Hepatic echogenicity is increased. There are numerous hepatic cysts which measure up to 10. 9 cm. The pancreas is obscured on this exam. The gallbladder is distended. Note is made of mild gallb ladder wall thickening. Positive sonographic Dsouza sign was reported. Sludge within the gallbladder is noted. The small stone within the cystic duct shown on CT is not evident by sonography. There is n o biliary ductal dilatation. No right hydronephrosis is present. There is a 1.9 cm right renal cyst. IMPRESSION: 1. Mild gallbladder wall thickening with positive sonographic Dsouza sign. Sludge within the gallblad olinda. Small stone within the cystic duct on CT likely occult by sonography. These findings favor acute cholecystitis. If indicated, a hepatobiliary scan could be obtained. 2. No biliary ductal dilatation. 3. Hepatic steatosis. Numerous hepatic cysts. ACT 112: Negative or not required by law. Electronically signed by: Zach Sanders M.D. 08/13/2021 5:11 PM
--- NOTE | 2021-08-13 17:24 | History & Physical Report ---
Date of Service August 13, 2021 Assessment & Plan (1) Acute cholecystitis: Plan: No known history of gallstones Pain started around [address] scan and ultrasound are suggestive of acute cholecystitis with gallbladder sludge and cystic duct stone but with normal LFTs Has been started on intravenous Zosyn N.p.o. for now, IV fluids and IV pain medications Surgery has been consulted and may need GI evaluation There is no contraindication for proposed surgery (2) Abdominal pain, acute, epigastric: Plan: Secondary to above CTA of the chest did not show any pulmonary emboli and/or acute process within the chest (3) Hx of CABG: Plan: History of CAD and status post CABG No acute cardiac symptoms EKG remains unremarkable and troponin negative Echo reviewed from 06/20/2020 with EF of 55 to 60% (4) Enlarged aorta: Plan: History of aortic aneurysm status post repair No acute findings on CTA (5) History of hypertension: Plan: Has been on metoprolol We will continue with Lopressor IV with holding parameters DVT prophylaxis Subcu heparin CODE STATUS Full History of Present Illness Chief Complaint: Epigastric and right upper quadrant pain since 10 PM last night Primary Care Provider: Joe Lopez MD He is a 76-year-old obese male with significant past medical history of CAD status post CABG, history of aortic root repair and hypertension has been complaining of epigastric pain started around 10 PM last night associated with nausea, dry heaves and shortness of breath. No fever and no chills and the pain lasted for about more than an hour. The pain started to come back again early in the morning around 4 AM and continued for some time when he planned to come to the emergency room. He still has pain in the emergency room in the epigastric area without radiation of pain with nausea but no vomiting. He denies any chest pain or palpitation, any fever and no chills, any problem with his urine and bowel habit. He was noted to have mild elevated white count with CT and ultrasound evidence of acute cholecystitis. He was admitted to medical telemetry unit for continuation of care. Surgery consulted Allergies Allergy/AdvReac Type Severity Reaction Status Date / Time morphine AdvReac Mild Hypotension, Verified 08/13/21 14:56 "MAKES ME MEAN" Sulfa (Sulfonamide AdvReac Mild NAUSEA, Verified 08/13/21 14:56 Antibiotics) FATIGUE Home Medications Medication Instructions Recorded Confirmed Type aspirin 81 mg tablet,delayed 81 mg PO QAM 08/16/19 08/13/21 History release finasteride 5 mg tablet (Proscar) 5 mg PO HS 08/16/19 08/13/21 History lactobacillus combination no.4 3 3,000 mmu cells PO QAM 08/16/19 08/13/21 History billion cell capsule (Probiotic) [id number]-dud-uhxdj acid 300 1 tab PO QAM 08/16/19 08/13/21 History mcg-lycopene 600 mcg-lutein 300 mcg tablet (Centrum Silver Men) polyethylene glycol 3350 17 17 g PO DAILY PRN 08/16/19 08/13/21 History gram/dose oral powder (Miralax) acetaminophen 500 mg tablet 1,000 mg PO Q6H PRN 06/19/20 08/13/21 History cholecalciferol (vitamin D3) 25 1,000 unit PO DAILY 06/19/20 08/13/21 History mcg (1,000 unit) capsule lisinopril 5 mg tablet 5 mg PO QAM 06/19/20 08/13/21 History metoprolol succinate 25 mg 25 mg PO QPM 06/19/20 08/13/21 History tablet,extended release 24 hr omeprazole magnesium 20 mg 20 mg PO QPM 06/19/20 08/13/21 History tablet,delayed release (Prilosec OTC) tamsulosin 0.4 mg capsule 0.4 mg PO HS 03/23/21 08/13/21 History ezetimibe 10 mg tablet 10 mg PO DAILY 08/13/21 08/13/21 History pravastatin 40 mg tablet 40 mg PO HS 08/13/21 08/13/21 History Past Med/Surg History Medical History Aneurysm, ascending aorta HX OF - 4.5 cm per [facility] echo 08/11/19...SURGICALLY REPAIRED Benign prostatic hyperplasia CAD (coronary artery disease) Dyslipidemia Esophageal dysmotility (02/23/12) PT DENIES , DENIES TROUBLE SWALLOWING GERD (gastroesophageal reflux disease) Hypertension JEFFERSON (obstructive sleep apnea) CPAP SOB (shortness of breath) on exertion PT HX INHALER - REPORTS WAS UNABLE TO AFFORD AND INHALER D/C'D...CPAP USE...PT REPORTS THINKS SOB MAY BE RELATED TO AMOUNT OF BLOOD PRESSURE MED ICINE HE TAKES AND PLANS TO DISCUSS WITH Surgical History History of cataract surgery RT History of colonoscopy History of removal of cyst BEHIND EAR History of shoulder surgery S/P ascending aortic aneurysm repair Aug 2019 in [place] (TRIPLE BYPASS AND ANEURYSM REPAIR 1 SURGICAL PROCEDURE) S/P CABG (coronary artery bypass graft) Aug 2019 in [place] (TRIPLE BYPASS AND ANEURYSM REPAIR 1 SURGICAL PROCEDURE) Family History Mother Heart disease Breast cancer Father Heart disease Social History Smoking Status: Never smoker Second Hand Exposure: Yes (IN THE PAST); Hx Alcohol Use: No Hx Substance Use: No Preferred Language: Dominican Communication Ability: Effective 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 Beliefs That Will Affect Care: Anabaptism Anabaptism Beliefs: HINDU marital status: Current Living Situation: Family Current Living Situation Comment: [facility] current occupational status: retired current occupation: Retired Feels Safe at Home: Yes Assistive Devices: CPAP and Glasses Review of Systems Review of Systems: All systems reviewed & are unremarkable except as noted in HPI & below Physical Exam Physical Exam: Lying in bed with minimal epigastric discomfort and pain Constitutional: well developed, well nourished, + ill appearing and + obese Eyes: PERRL, conjunctivae normal, anicteric sclerae ENMT: external ear and nose normal, oropharynx normal Neck: trachea midline, no thyromegaly Respiratory: no respiratory distress and no cough Auscultation: lungs clear to auscultation bilaterally and + diminished lung sounds; no crackles Cardiovascular: Rate/Rhythm: regular rate and regular rhythm; not tachycardic Heart Sounds: normal S1, normal S2 and + murmur (2/6 ESM over precordium) Gastrointestinal (Abdomen): Inspection/Auscultation: + abdomen distended and normal bowel sounds Percussion/Palpation: + abdomen tender (Tender in the epigastrium and right upper quadrant with positive Dsouza sig) and abdomen soft Musculoskeletal: No acute arthritis in any joint Neurologic: Alert, awake and oriented x3. No focal sensory or motor deficit appreciated Results & Data Results & Data ([facility]) Vital Signs (Past 12 Hours) Vital Signs Temp Pulse Resp BP Pulse Ox 08/13/21 15:20 66 24 125/69 08/13/21 15:10 68 28 H 08/13/21 15:00 76 24 136/78 08/13/21 14:50 70 17 08/13/21 14:40 72 20 08/13/21 14:30 70 19 08/13/21 14:21 76 16 08/13/21 14:00 85 16 08/13/21 13:50 82 18 08/13/21 13:40 81 20 08/13/21 13:30 74 21 08/13/21 13:29 79 22 08/13/21 12:59 37.0 C 89 18 131/77 95 Laboratory Results Current Inpatient Medications Fentanyl Citrate (Fentanyl Citrate 100 Mcg/2 Ml Vial) 50 mcg IV Q15M PRN PRN Reason: Pain Stop: 08/27/21 13:23 Last Admin: 08/13/21 13:51 Dose: 50 mcg Documented by: Heparin Sodium (Porcine) (Heparin Sod 5,000 Unit/0.5 Ml Vial) 5,000 units SQ Q12 JUN Stop: 09/12/21 20:59 Hydromorphone HCl (Hydromorphone Inj 0.5 Mg/0.5 Ml Syr) 0.5 mg IV Q6H PRN PRN Reason: Pain Stop: 08/27/21 17:08 Piperacillin Sod/Tazobactam (Sod 4.5 gm/ Dextrose) 120 mls @ 200 mls/hr IV Q6H JUN; Protocol Stop: 08/23/21 17:14 Potassium Chloride/Sodium Chloride (Normal Saline W/20 Meq Kcl) 20 meq in 1,000 mls @ 100 mls/hr IV .Q10H JUN Stop: 08/15/21 09:14 Metoprolol Tartrate (Metoprolol Tartrate 1 Mg/Ml Vial) 5 mg IV Q6 JUN Stop: 09/12/21 17:59 Miscellaneous Information (Piperacill/Tazobac Consult Active) 1 ea N/A UD PRN PRN Reason: Consult Stop: 09/12/21 14:40 Miscellaneous Information (Piperacill/Tazobac Consult Active) 1 ea N/A UD PRN PRN Reason: Consult Stop: 09/12/21 17:06 Medications Administered Current Inpatient Medications Fentanyl Citrate (Fentanyl Citrate 100 Mcg/2 Ml Vial) 50 mcg IV Q15M PRN PRN Reason: Pain Stop: 08/27/21 13:23 Last Admin: 08/13/21 13:51 Dose: 50 mcg Documented by: Heparin Sodium (Porcine) (Heparin Sod 5,000 Unit/0.5 Ml Vial) 5,000 units SQ Q12 JUN Stop: 09/12/21 20:59 Hydromorphone HCl (Hydromorphone Inj 0.5 Mg/0.5 Ml Syr) 0.5 mg IV Q6H PRN PRN Reason: Pain Stop: 08/27/21 17:08 Piperacillin Sod/Tazobactam (Sod 4.5 gm/ Dextrose) 120 mls @ 200 mls/hr IV Q6H JUN; Protocol Stop: 08/23/21 17:14 Potassium Chloride/Sodium Chloride (Normal Saline W/20 Meq Kcl) 20 meq in 1,000 mls @ 100 mls/hr IV .Q10H JUN Stop: 08/15/21 09:14 Metoprolol Tartrate (Metoprolol Tartrate 1 Mg/Ml Vial) 5 mg IV Q6 JUN Stop: 09/12/21 17:59 Miscellaneous Information (Piperacill/Tazobac Consult Active) 1 ea N/A UD PRN PRN Reason: Consult Stop: 09/12/21 14:40 Miscellaneous Information (Piperacill/Tazobac Consult Active) 1 ea N/A UD PRN PRN Reason: Consult Stop: 09/12/21 17:06 Code Status & VTE Plan VTE Prophylaxis Plan VTE Prophylaxis will be ordered: Yes
--- NOTE | 2021-08-13 19:41 | Surgery Consultation ---
Date of Consultation August 13, 2021 Assessment & Plan (1) Acute cholecystitis: Patient has been admitted by the hospitalist. We recommend proceeding as follows: Provide analgesics Provide antiemetics Keep patient n.p.o. Provide IV fluid for gentle hydration Continue antibiotics. The patient has been initiated on Zosyn Due to the patient's acute cholecystitis appears the patient would benefit from a cholecystectomy. I discussed this with the patient and he wishes to proceed. I have outlined the risks, benefits, alternatives, and expected postoperative recovery. As noted he wishes to proceed as we will plan accordingly with laparoscopic possible open cholecystectomy with Dr. Daniels tomorrow. Dr. Daniels has discussed with Dr. Charles of the hospital service and is felt that the patient is stable from a cardiac standpoint to undergo the surgical procedure without further cardiac testing. There is no over the mention that the patient does take metoprolol in the evenings. This medication should be continued up until the time of his surgery. Additional recommendations be forthcoming based on operative findings and the patient's clinical course as it on folds. Supervising Physician Co-Signing Physician Notes discussed with YAMIL Harris, agree with above. 76 y/o male with acute cholecystitis, plan for laparoscopic cholecystectomy tomorrow. npo, ivf's, abx. History of Present Illness Reason for Consultation: Cholecystitis History of Present Illness This 76-year-old male who presented [facility] secondary to abdominal pain. Patient reports he had a "gallbladder attack" several years ago that resolved and did not require surgical intervention. Patient says that he has been fine since that time. Patient notes that yesterday approximately 1 hour after eating a meal he developed severe right upper quadrant pain with associated nausea vomiting. He denies any fevers, shakes, chills. He notes the pain did not radiate. He denied any palliative or provocative factors. Because of the severity of the pain he reported to [facility] emergency department. There is no over the mention that the patient denies any prior abdominal surgeries. Since arrival to [facility] the patient has had numerous labs and imaging which" reviewed. He did have a chest x-ray that showed no evidence of pneumonia or CHF. He had a CT scan of the chest that showed no evidence of pneumonia or pulmonary emboli. He had a CT scan of the abdomen and pelvis that showed a 5 mm calcific stone in the cystic duct and a mildly distended gallbladder with pericholecystic infiltration concerning for acute cholecystitis. A gallbladder ultrasound was ultimately performed that showed mild gallbladder wall thickening and a positive sonographic Dsouza sign. Sludge was noted within the gallbladder and there is also a small stone noted within the cystic duct. These findings favor acute cholecystitis as well. Labs including CBC were white blood cell count was 13.77. Hemoglobin, hematocrit, and platelet count were within normal range. His coagulation studies were noted to be within normal range. Chemistry profile showed sodium and potassium were within normal range. His BUN and creatinine were slightly elevated at 21 and 1.6 but review of previous labs show that this is within his baseline. There is no elevation of patient's bilirubin, transaminases, or alkaline phosphatase. His lipase was also not elevated. Covid test was performed was noted to be negative. An EKG showed sinus rhythm without acute ischemic changes. I asked patient about medical history and he does report a history of coronary artery disease requiring coronary bypass grafting approximately 2 years ago. He says he follows locally with Dr. Delvin Jordan of [facility] cardiology. Patient feels that from a cardiac standpoint he has been stable. He notes with his activities of daily living he does not get chest pain and he does not get short of breath when he is walking on flat surface but he does admit to some dyspnea on exertion when walking up steps or inclines but notes that this has been stable since his heart surgery. He denies any worsening lower extremity edema, orthopnea, or weight gain. At the time of my interview the patient was resting comfortably in bed. He was in no distress. He only had pain with palpation of his abdomen in the right upper quadrant. Allergies Allergy/AdvReac Type Severity Reaction Status Date / Time morphine AdvReac Mild Hypotension, Verified 08/13/21 14:56 "MAKES ME MEAN" Sulfa (Sulfonamide AdvReac Mild NAUSEA, Verified 08/13/21 14:56 Antibiotics) FATIGUE Home Medications Medication Instructions Recorded Confirmed Type aspirin 81 mg tablet,delayed 81 mg PO QAM 08/16/19 08/13/21 History release finasteride 5 mg tablet (Proscar) 5 mg PO HS 08/16/19 08/13/21 History lactobacillus combination no.4 3 3,000 mmu cells PO QAM 08/16/19 08/13/21 History billion cell capsule (Probiotic) pxwgqtol-kop-fpbpb acid 300 1 tab PO QAM 08/16/19 08/13/21 History mcg-lycopene 600 mcg-lutein 300 mcg tablet (Centrum Silver Men) polyethylene glycol 3350 17 17 g PO DAILY PRN 08/16/19 08/13/21 History gram/dose oral powder (Miralax) acetaminophen 500 mg tablet 1,000 mg PO Q6H PRN 06/19/20 08/13/21 History cholecalciferol (vitamin D3) 25 1,000 unit PO DAILY 06/19/20 08/13/21 History mcg (1,000 unit) capsule lisinopril 5 mg tablet 5 mg PO QAM 06/19/20 08/13/21 History metoprolol succinate 25 mg 25 mg PO QPM 06/19/20 08/13/21 History tablet,extended release 24 hr omeprazole magnesium 20 mg 20 mg PO QPM 06/19/20 08/13/21 History tablet,delayed release (Prilosec OTC) tamsulosin 0.4 mg capsule 0.4 mg PO HS 03/23/21 08/13/21 History ezetimibe 10 mg tablet 10 mg PO DAILY 08/13/21 08/13/21 History pravastatin 40 mg tablet 40 mg PO HS 08/13/21 08/13/21 History Patient History Medical History Aneurysm, ascending aorta HX OF - 4.5 cm per [facility] echo 08/11/19...SURGICALLY REPAIRED Benign prostatic hyperplasia CAD (coronary artery disease) Dyslipidemia Esophageal dysmotility (02/23/12) PT DENIES , DENIES TROUBLE SWALLOWING GERD (gastroesophageal reflux disease) Hypertension JEFFERSON (obstructive sleep apnea) CPAP SOB (shortness of breath) on exertion PT HX INHALER - REPORTS WAS UNABLE TO AFFORD AND INHALER D/C'D...CPAP USE...PT REPORTS THINKS SOB MAY BE RELATED TO AMOUNT OF BLOOD PRESSURE MEDICINE HE TAKES AND PLANS TO DISCUSS WITH Surgical History History of cataract surgery RT History of colonoscopy History of removal of cyst BEHIND EAR History of shoulder surgery S/P ascending aortic aneurysm repair Aug 2019 in [place] (TRIPLE BYPASS AND ANEURYSM REPAIR 1 SURGICAL PROCEDURE) S/P CABG (coronary artery bypass graft) Aug 2019 in [place] (TRIPLE BYPASS AND ANEURYSM REPAIR 1 SURGICAL PROCEDURE) Family History Mother Heart disease Breast cancer Father Heart disease Social History Smoking Status: Never smoker Second Hand Exposure: Yes (IN THE PAST); Hx Alcohol Use: No Hx Substance Use: No Preferred Language: Maori Communication Ability: Effective 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 Beliefs That Will Affect Care: Religion Religion Beliefs: SIKH marital status: Current Living Situation: Family Current Living Situation Comment: [facility] current occupational status: retired current occupation: Retired Feels Safe at Home: Yes Assistive Devices: CPAP and Glasses Review of Systems Constitutional: no fever and no chills Eyes: no diplopia Ear, Nose, Mouth, Throat: no ear pain and no hearing loss Respiratory: + dyspnea on exertion (Only with steps and inclines and this appears stable); no cough and no dyspnea Cardiovascular: no chest pain, no orthopnea and no palpitations Gastrointestinal: + abdominal pain, + nausea and + vomiting Genitourinary: no dysuria Integumentary: no rash Neurologic: no localized weakness Physical Exam Constitutional: well developed and well nourished; no acute distress Eyes: + anicteric sclerae; no conjunctival abnormality ENMT: Ears: no hearing impairment and no external ear abnormality Mouth: no oropharynx abnormality Neck: trachea midline Respiratory: normal respiratory effort, lungs clear to auscultation Cardiovascular: Rate/Rhythm: regular rate and regular rhythm Gastrointestinal (Abdomen): Abdomen is rotund with positive bowel sounds. There is minimal distention. There is no rebound tenderness or guarding however the patient did have significant pain with palpation in the right upper quadrant. Dsouza sign was noted to be positive as well. I did not appreciate any hernias. Musculoskeletal: No lower extremity edema. No calf tenderness Skin: no rashes Neurologic: moves all extremities Psychiatric: A+Ox3, euthymic affect Results & Data ([facility]) Vital Signs (Past 12 Hours) Vital Signs Temp Pulse Pulse Resp BP BP Pulse Ox 08/13/21 19:00 88 18 144/80 H 95 08/13/21 17:50 80 24 127/63 96 08/13/21 15:20 66 24 125/69 08/13/21 15:10 68 28 H 08/13/21 15:00 76 24 136/78 08/13/21 14:50 70 17 08/13/21 14:40 72 20 08/13/21 14:30 70 19 08/13/21 14:21 76 16 08/13/21 14:00 85 16 08/13/21 13:50 82 18 08/13/21 13:40 81 20 08/13/21 13:30 74 21 08/13/21 13:29 79 22 08/13/21 12:59 37.0 C 89 18 131/77 95 PG Care Time/CCT Total # of Minutes Spent Total Time Spent with Patient: Total time spent is greater than 50% in coordination of care (as documented) at patient's floor/unit and/or counseling patient: Coding Level of Care Code 77418 Inpt Consult Level 5 Diagnoses Acute cholecystitis K81.0
[2021-08-13] MEDS: PIPERACILLIN/TAZOBACTAM 3.375 GM in DEXTROSE 5% 100 ML IV SCH (21:53)
[2021-08-13] MEDS: NSS + 20MEQ KCL 20 MEQ/1,000 ML BAG IV SCH (21:53)
[2021-08-13] MEDS: HEPARIN SOD 5,000 UNIT/0.5 ML VIAL SQ SCH (21:54)
[2021-08-13] MEDS: HYDROmorphone INJ 0.5 MG/0.5 ML SYR IV PRN (22:27)
[2021-08-14] MEDS ORDERED: METOPROLOL TARTRATE 1 MG/ML VIAL IV SCH
[2021-08-14] MEDS: METOPROLOL TARTRATE 1 MG/ML VIAL IV SCH ×3 (00:26→11:42)
[2021-08-14] MEDS ORDERED: HYDROmorphone INJ 0.5 MG/0.5 ML SYR IV STA (01:42)
[2021-08-14] MEDS ORDERED: PROMETHAZINE HCL 12.5 MG in SODIUM CHLORIDE 0.9% 50 ML IV STA (01:42)
[2021-08-14] MEDS: PIPERACILLIN/TAZOBACTAM 3.375 GM in DEXTROSE 5% 100 ML IV SCH ×3 (04:56→21:03)
[2021-08-14] MEDS: HYDROmorphone INJ 0.5 MG/0.5 ML SYR IV PRN ×3 (05:07→21:58)
[2021-08-14 08:35] LABS: Basophils # (auto) 0.02 K/uL (0-0.2); Basophils % (auto) 0.2 %; Eosinophils # (auto) 0.08 K/uL (0-0.5); Eosinophils % (auto) 0.7 %; Hemoglobin 14.3 g/dL (14.0-18.0); Immature Granulocytes # (auto) 0.03 K/uL (0.00-0.02); Immature Granulocytes % (auto) 0.3 %; Lymphocytes # (auto) 1.32 K/uL (1.2-3.4); Lymphocytes % (auto) 11.1 %; Mean Platelet Volume 9.3 fL (7.4-10.4); Monocytes # (auto) 1.38 K/uL (0.11-0.59); Monocytes % (auto) 11.6 %; Neutrophils # (auto) 9.06 K/uL (1.4-6.5); Neutrophils % (auto) 76.1 %; Platelet Count 233 K/uL (130-400); RDW Coefficient of Variation 13.4 % (11.5-14.5); Red Blood Count 4.47 M/uL (4.7-6.1); White Blood Count 11.89 K/uL (4.8-10.8)
[2021-08-14 08:56] LABS: BUN Creatinine Ratio 9.8 (10-20); Calcium 8.7 mg/dl (8.5-10.1); Creatinine Clr Calc Pharmacy 39.7 ml/min; Est GFR (African American) 42.9 ml/min; Magnesium 2.2 mg/dl (1.8-2.4); Potassium 4.2 mmol/L (3.5-5.1)
[2021-08-14] MEDS: HEPARIN SOD 5,000 UNIT/0.5 ML VIAL SQ SCH (09:11)
[2021-08-14] MEDS: NSS + 20MEQ KCL 20 MEQ/1,000 ML BAG IV SCH (10:25)
[2021-08-14] MEDS ORDERED: ACETAMINOPHEN 1000 MG/100 ML IV IV ONE (10:42)
[2021-08-14] MEDS ORDERED: ONDANSETRON INJ 2 MG/ML 2 ML VIAL IV PRN (11:46)
[2021-08-14] MEDS ORDERED: PHENYLEPHRINE 100MCG/ML 5ML SYR IV PRN (11:46)
[2021-08-14] MEDS ORDERED: fentaNYL citrate 100 MCG/2 ML VIAL IV PRN (11:46)
[2021-08-14] MEDS ORDERED: LABETALOL HCL IV 5 MG/ML 20ML IV PRN (11:46)
[2021-08-14] MEDS ORDERED: ATROPINE SULFATE 0.1 MG/ML 10ML SYR IV PRN (11:46)
[2021-08-14] MEDS ORDERED: HYDROmorphone INJ 1 MG/ML SYRINGE IV PRN (11:46)
[2021-08-14] MEDS ORDERED: ePHEDrine sulfate 50 MG/ML AMP IV PRN (11:46)
[2021-08-14] MEDS ORDERED: ONDANSETRON INJ 2 MG/ML 2 ML VIAL ONE (11:47)
[2021-08-14] MEDS ORDERED: LIDOCAINE 2% 2 ML VIAL/AMP(20MG/ML) INFIL ONE (11:47)
[2021-08-14] MEDS ORDERED: fentaNYL citrate 100 MCG/2 ML VIAL ONE (11:47)
[2021-08-14] MEDS ORDERED: DEXAMETHASONE SOD INJ 4 MG/ML VIAL ONE (11:47)
[2021-08-14] MEDS ORDERED: PROPOFOL IV EMULSION 10 MG/ML 20 ML VIAL IV ONE (11:47)
[2021-08-14] MEDS ORDERED: ROCURONIUM BROMIDE 10 MG/ML 5 ML VIAL IV ONE (11:47)
--- NOTE | 2021-08-14 12:00 | Anesthesiology Consultation ---
Date of Service August 14, 2021 Assessment & Plan (1) Encounter for pre-operative examination: Chart Review Chart Review: Acceptable Risk for Surgery (necessary surgery) and Patient NOT seen in Pre Admission Testing Consults Requested none History Surgery Operation Date: 08/14/21 08:40 Proposed Procedures p Laparoscopic Cholecystectomy, Possible fransico - Chris Daniels DO, FACS Height/Weight Height: 5 ft 6 in Weight: 98 kg Allergies Allergy/AdvReac Type Severity Reaction Status Date / Time morphine AdvReac Mild Hypotension, Verified 08/13/21 14:56 "MAKES ME MEAN" Sulfa (Sulfonamide AdvReac Mild NAUSEA, Verified 08/13/21 14:56 Antibiotics) FATIGUE Medications Home Medications Medication Instructions Recorded Confirmed Last Taken aspirin 81 mg tablet,delayed 81 mg PO QAM 08/16/19 08/13/21 08/13/21 release finasteride 5 mg tablet (Proscar) 5 mg PO HS 08/16/19 08/13/21 08/12/21 lactobacillus combination no.4 3 3,000 mmu cells PO QAM 08/16/19 08/13/21 08/13/21 billion cell capsule (Probiotic) jzotoobc-lwx-yfjjg acid 300 1 tab PO QAM 08/16/19 08/13/21 08/13/21 mcg-lycopene 600 mcg-lutein 300 mcg tablet (Centrum Silver Men) polyethylene glycol 3350 17 17 g PO DAILY PRN 08/16/19 08/13/21 08/13/21 gram/dose oral powder (Miralax) acetaminophen 500 mg tablet 1,000 mg PO Q6H PRN 06/19/20 08/13/21 Unknown cholecalciferol (vitamin D3) 25 1,000 unit PO DAILY 06/19/20 08/13/21 08/13/21 mcg (1,000 unit) capsule lisinopril 5 mg tablet 5 mg PO QAM 06/19/20 08/13/21 08/13/21 metoprolol succinate 25 mg 25 mg PO QPM 06/19/20 08/13/21 08/12/21 tablet,extended release 24 hr omeprazole magnesium 20 mg 20 mg PO QPM 06/19/20 08/13/21 08/13/21 tablet,delayed release (Prilosec OTC) tamsulosin 0.4 mg capsule 0.4 mg PO HS 03/23/21 08/13/21 08/12/21 ezetimibe 10 mg tablet 10 mg PO DAILY 08/13/21 08/13/21 08/13/21 pravastatin 40 mg tablet 40 mg PO HS 08/13/21 08/13/21 08/12/21 Active Medications Generic Name Dose Route Start Last Admin Trade Name Freq PRN Reason Stop Dose Admin Heparin Sodium (Porcine) 5,000 units 08/13/21 21:00 08/14/21 09:11 Heparin Sod 5,000 Unit/0.5 Ml Vial SQ 09/12/21 20:59 Not Given Q12 JUN Hydromorphone HCl 0.5 mg 08/14/21 07:39 08/14/21 08:10 Hydromorphone Inj 0.5 Mg/0.5 Ml Syr IV 08/27/21 17:08 0.5 mg Q3H PRN Administration Pain Piperacillin Sod/Tazobactam 115 mls @ 28.75 mls/hr 08/13/21 21:00 08/14/21 09:11 Sod 3.375 gm/ Dextrose IV 08/23/21 20:59 Infused Q8H JUN Infusion Protocol Potassium Chloride/Sodium Chloride 20 meq in 1,000 mls @ 100 mls/hr 08/13/21 21:00 08/14/21 10:25 Normal Saline W/20 Meq Kcl IV 08/15/21 12:59 100 mls/hr .Q10H JUN Administration Metoprolol Tartrate 2.5 mg 08/14/21 00:00 08/14/21 11:42 Metoprolol Tartrate 1 Mg/Ml Vial IV 09/13/21 00:00 2.5 mg Q6 JUN Administration Past Medical History Medical History Aneurysm, ascending aorta HX OF - 4.5 cm per [facility] echo 08/11/19...SURGICALLY REPAIRED Benign prostatic hyperplasia CAD (coronary artery disease) Dyslipidemia Esophageal dysmotility (02/23/12) PT DENIES , DENIES TROUBLE SWALLOWING GERD (gastroesophageal reflux disease) Hypertension Obesity JEFFERSON (obstructive sleep apnea) CPAP SOB (shortness of breath) on exertion PT HX INHALER - REPORTS WAS UNABLE TO AFFORD AND INHALER D/C'D...CPAP USE...PT REPORTS THINKS SOB MAY BE RELATED TO AMOUNT OF BLOOD PRESSURE MEDICINE HE TAKES AND PLANS TO DISCUSS WITH DR Past Family History Family History Mother Heart disease Breast cancer Father Heart disease Past Surgical History Surgical History History of cataract surgery RT History of colonoscopy History of removal of cyst [place] E[place] History of shoulder surgery S/P ascending aortic aneurysm repair Aug 2019 in [place] (TRIPLE BYPASS AND ANEURYSM REPAIR 1 SURGICAL PROCEDURE) S/P CABG (coronary artery bypass graft) Aug 2019 in [place] (TRIPLE BYPASS AND ANEURYSM REPAIR 1 SURGICAL PROCEDURE) Social History Smoking Status: Former smoker tobacco type: cigarettes and smokeless tobacco Smoking End Date: 25 years ago smoking Hx Alcohol Use: Yes Alcohol Intake Frequency Comment: Stopped drinking 25 years ago Hx Substance Use: No substance use type: does not use Physical Exam Vital Signs Last Vital Signs Temp 37.8 C H 08/14/21 11:58 Pulse 78 08/14/21 11:58 Resp 20 08/14/21 11:58 BP 168/89 H 08/14/21 11:58 Pulse Ox 94 08/14/21 11:58 Testing Laboratory Results 08/14/21 08:05 08/14/21 08:05 PT 9.8 Seconds (9.0-12.0) 08/13/21 13:14 INR 1.0 (0.9-1.1) 08/13/21 13:14 APTT 26.2 Seconds (21.0-31.0) 08/13/21 13:14 Electrocardiogram Date: 08/13/21 Findings: + NSR @ (82) and + NSST changes Chest X-Ray Date: 08/13/21 XR chest 1V portable CLINICAL HISTORY: Atypical chest pain. COMPARISON STUDY: Chest radiograph June 19, 2020. FINDINGS: Mediastinal wires are noted. There are mediastinal surgical clips. There is no pneumothorax or pleural effusion. Cardiomegaly is noted. Upper mediastinal widening is unchanged. There is no evidence for pulmonary edema. IMPRESSION: No acute cardiopulmonary findings. Cardiomegaly. ACT 112: Negative or not required by law. Electronically signed by: Zach Sanders M.D. 08/13/2021 1:31 PM Dictated: 08/13/21 1329Transcribed: 08/13/21 132 Echocardiogram Date: 06/20/20 EF: 55-60 Other Findings: + LVH (mild concentric) and + diastolic dysfunction (grade 1) Valvular Disease: + no significant valvular disease Other Testing CT ANGIOGRAPHY OF THE CHEST, PULMONARY EMBOLUS PROTOCOL CLINICAL HISTORY: Chest pain. Chest pressure. Nausea. Evaluate for pulmonary embolus. COMPARISON STUDY: Chest radiograph June 19, 2020 and August 13, 2021. TECHNIQUE: Following IV administration of 112 mL of Optiray, helical axial images of the chest were obtained utilizing the pulmonary embolus protocol. Maximal intensity projections and sagittal and coronal reformats were viewed on an independent 3D workstation. IV contrast was administered without complication. Automated exposure control was utilized for the study. A dose lowering technique was utilized adhering to the principles of ALARA. CT DOSE: 1826.74 mGy.cm FINDINGS: No pulmonary emboli are identified. There is no thoracic aortic dissection. Moderate cardiomegaly is noted. There are median sternotomy wires and postoperative findings from bypass grafting. No sonographic lymphadenopathy is present. No pneumothorax or pleural effusion is noted. There is no consolidation to suggest pneumonia. Mild groundglass opacities favor atelectasis. Central airways are patent. Abdomen and pelvis will be reported separately. Numerous hepatic cysts and hepatic steatosis are better depicted on that exam. IMPRESSION: 1. No pulmonary emboli identified. 2. No acute process within the chest. 3. Cardiomegaly. ACT 112: Negative or not required by law.
--- NOTE | 2021-08-14 12:53 | Surgery Progress Note ---
Date of Service August 14, 2021 Assessment & Plan (1) Acute cholecystitis: Plan: 76-year-old male with acute calculus cholecystitis Plan for laparoscopic cholecystectomy with possible cholangiogram Risk of the procedure were discussed to include but not limited to bleeding, infection, retained stone, bile leak, damage surrounding structures, conversion to open, need for future more extensive surgery, and the risk of anesthesia (2) Obesity: (3) Hx of CABG: Admission and Anticipated Discharge Date Admission Date: August 13, 2021 Subjective 76-year-old male admitted overnight with acute cholecystitis with plans for laparoscopic cholecystectomy today. No changes overnight, still in pain. Physical Exam Constitutional: WD/WN, vitals as above + obese Respiratory: normal respiratory effort, lungs clear to auscultation Cardiovascular: RRR, no murmur, no edema Gastrointestinal (Abdomen): Percussion/Palpation: + abdomen tender (Positive Dsouza sign), + guarding and abdomen soft; abdomen not rigid and no hepatosplenomegaly Results & Data ([facility]) Vital Signs (Past 12 Hours) Vital Signs Temp Pulse Pulse Pulse Resp BP BP 08/14/21 11:58 37.8 C H 78 20 168/89 H 08/14/21 11:42 80 165/80 H 08/14/21 11:20 36.9 C 82 18 157/87 H 08/14/21 07:51 36.9 C 88 20 160/84 H 08/14/21 06:07 80 147/82 H 08/14/21 03:49 36.9 C 62 16 136/64 Pulse Ox 08/14/21 11:58 94 08/14/21 11:42 08/14/21 11:20 90 08/14/21 07:51 95 08/14/21 06:07 08/14/21 03:49 93 PG Care Time/CCT Total # of Minutes Spent Total Time Spent with Patient: Total time spent is greater than 50% in coordination of care (as documented) at patient's floor/unit and/or counseling patient: Coding Level of Care Code 25955 Inpt Consult Level 3 Diagnoses Acute cholecystitis K81.0 Obesity E66.9 Hx of CABG Z95.1
[2021-08-14] MEDS ORDERED: BUPIVACAINE 0.5 % 5 MG/1 ML MPF 30ML VIAL ONE (12:55)
--- NOTE | 2021-08-14 14:33 | Operative Report ---
PG Post Operative Report Pre & Post Diagnosis Operation Date: 08/14/21 08:40 Pre-Op Diagnosis: Acute cholecystitis Post-Op Diagnosis: Gangrenous cholecystitis I identified the patient and participated in the time-out.: Yes Procedure Operation Date: 08/14/21 08:40 Actual Procedures p Laparoscopic Cholecystectomy(Not Applicable) - Chris Daniels DO, FACS Surgeon Chris Daniels DO, FACS Director Of Professional Services Jose Cardenas Estimated Blood Loss 25 Findings Consistent with Post-Op Diagnosis Gangrenous cholecystitis. Aspirated to allow for retraction. Critical view of safety obtained, cystic duct and artery doubly clipped and divided. Surgicel used for hemostasis. Specimens Gallbladder Anesthesia Type General Complications none Disposition Accompanied Patient To Recovery: No Disposition: Recovery Room Indications 76-year-old male admitted with acute cholecystitis, plan for laparoscopic cholecystectomy with possible cholangiogram. The risks of the procedure were discussed, all questions were answered, and the patient agreed to proceed with surgery as planned. Description of Procedure The patient was properly identified, consented, and taken to the operating room where he was placed in the supine position. General endotracheal anesthesia was induced. SCDs and a safety belt were placed. Preoperative antibiotics were a dministered. The patient's abdomen was prepped and draped in the standard sterile fashion. A surgical timeout was performed and all parties were in agreement that this was the correct patient and procedure to be performed and we continued as planned. An incision was made superior and to the left of the umbilicus overlying the rectus muscle and the Veress needle was inserted. Saline drop test confirmed entry into the peritoneum. The abdomen was insufflated with carbon dioxide which the patient tolerated without incident. The abdomen was then entered using the Optiview technique and a 5 mm trocar. The laparoscope was inserted and no damage from initial trocar or Veress needle placement was noted, no gross abnormalities were noted within the 4 quadrants of the abdomen. An 11 mm port w as placed in the subxiphoid position and two 5 mm ports were then placed in the right subcostal position. The patient was placed in reverse Trendelenburg position and rotated towards the left. The gallbladder was acutely inflamed and the dome appeared to have patches of ischemia consistent with gangrenous cholecystitis. The gallbladder was aspirated to allow for retraction. The dome of the gallbladder was retracted towards the left upper quadrant and the infundibulum was retracted toward the right lower quadrant revealing Calot's triangle. Peritoneal attachments were taken down with electrocautery and blunt dissection. The cystic duct and artery were circumferentially dissected. A window of safety was obtained showing the cystic duct entering the gallbladder with no aberrant structures noted. The cystic duct and artery were doubly clipped and divided. The gallbladder was then lifted off the gallbladder fossa with electrocautery. The gallbladder was placed in an Endo Catch bag and removed through the subxiphoid port site. Bleeding from the liver bed was controlled with electrocautery, and Surgicel was inserted and placed in the liver bed. Pressure was held utilizing a Ray-Flower which was removed and hemostasis appeared adequate. The right upper quadrant was irrigated and hemostasis was found to be good. 5 mm trochars were removed under direct visualization and the abdomen was allowed to collapse. The subxiphoid port site fascia was closed with 0 Vicryl suture. The wound was irrigated, and the skin of all ports was closed with 4-0 Monocryl subcuticular sutures. Dermabond was placed over the wounds. The patient was extubated in the operating room and taken to the PACU where he recovered without apparent incident. All sponge, instrument and needle counts were correct at the conclusion of the procedure. The patient tolerated the procedure well. The physician's ward assistant was present and scrubbed for the entirety of the case and was essential in positioning the patient, prepping and draping, retraction and exposure, driving the laparoscope, removal of the gallbladder, closure the incisions, and placement of the dressings. I attest to the content of the Intraoperative Record and any orders documented therein. Any exceptions are noted below.
--- NOTE | 2021-08-14 15:46 | Anesthesiology Progress Note ---
Date of Service August 14, 2021 Anesthesia Post Procedure Vital Signs Vital Signs: Temp Pulse Pulse Pulse Resp BP BP 08/14/21 15:30 86 18 136/69 08/14/21 15:20 84 18 135/70 08/14/21 15:10 37.6 C H 85 16 137/74 08/14/21 15:00 86 16 150/71 H 08/14/21 14:50 94 H 12 149/76 H 08/14/21 14:42 38.0 C H 85 12 139/93 08/14/21 11:58 37.8 C H 78 20 168/89 H 08/14/21 11:42 80 165/80 H 08/14/21 11:20 36.9 C 82 18 157/87 H 08/14/21 07:51 36.9 C 88 20 160/84 H 08/14/21 06:07 80 147/82 H 08/14/21 03:49 36.9 C 62 16 136/64 08/13/21 23:51 89 08/13/21 23:27 36.9 C 99 H 20 168/84 H 08/13/21 22:10 103 H 20 08/13/21 22:00 105 H 20 161/90 H 08/13/21 21:50 108 H 22 08/13/21 21:40 106 H 22 08/13/21 21:30 105 H 20 08/13/21 21:20 103 H 20 08/13/21 21:10 101 H 22 08/13/21 21:00 95 H 20 08/13/21 20:50 97 H 20 08/13/21 20:43 114 H 22 08/13/21 20:30 92 H 20 08/13/21 20:20 111 H 20 08/13/21 20:10 101 H 15 141/86 H 08/13/21 20:00 93 H 20 08/13/21 19:50 96 H 20 08/13/21 19:40 93 H 20 08/13/21 19:30 96 H 22 08/13/21 19:20 94 H 20 08/13/21 19:10 86 20 08/13/21 19:00 93 H 88 20 144/80 H 08/13/21 18:50 96 H 20 08/13/21 18:43 131 H 22 08/13/21 18:30 113 H 23 08/13/21 18:20 73 20 08/13/21 18:10 73 20 08/13/21 18:00 72 20 08/13/21 17:51 66 20 08/13/21 17:50 80 24 127/63 Pulse Ox 08/14/21 15:30 95 08/14/21 15:20 95 08/14/21 15:10 95 08/14/21 15:00 95 08/14/21 14:50 96 08/14/21 14:42 96 08/14/21 11:58 94 08/14/21 11:42 08/14/21 11:20 90 08/14/21 07:51 95 08/14/21 06:07 08/14/21 03:49 93 08/13/21 23:51 08/13/21 23:27 96 08/13/21 22:10 93 08/13/21 22:00 95 08/13/21 21:50 94 08/13/21 21:40 94 08/13/21 21:30 94 08/13/21 21:20 94 08/13/21 21:10 93 08/13/21 21:00 95 08/13/21 20:50 95 08/13/21 20:43 95 08/13/21 20:30 95 08/13/21 20:20 95 08/13/21 20:10 95 08/13/21 20:00 94 08/13/21 19:50 95 08/13/21 19:40 95 08/13/21 19:30 94 08/13/21 19:20 95 08/13/21 19:10 95 08/13/21 19:00 96 08/13/21 18:50 08/13/21 18:43 08/13/21 18:30 08/13/21 18:20 95 08/13/21 18:10 95 08/13/21 18:00 95 08/13/21 17:51 95 08/13/21 17:50 96 Pain Intensity Medial Abdomen: Pain Intensity: 0 Transfer of Care Handoff Completed per policy Notes Mental Status: alert / awake / arousable Patient Amnestic to Procedure: Yes Nausea / Vomiting: adequately controlled Pain: adequately controlled Airway Patency, RR, SpO2: stable & adequate BP & HR: stable & adequate Hydration State: stable & adequate Anesthetic Complications: no major complications apparent and Pt Satisfied with anesthetic care
--- NOTE | 2021-08-14 16:57 | Electrocardiogram Report ---
Test Reason : Blood Pressure : / mmHG Vent. Rate : 082 BPM Atrial Rate : 082 BPM P-R Int : 144 ms QRS Dur : 086 ms QT Int : 364 ms P-R-T Axes : 055 -32 080 degrees QTc Int : 425 ms Normal sinus rhythm Left axis deviation Nonspecific ST and T wave abnormality Abnormal ECG When compared with ECG of 20-JUN-2020 08:07, Borderline criteria for Anterolateral infarct are no longer Present Confirmed by Jem Meeks ([id number]) on 08/14/2021 4:57:41 PM Referred By: Confirmed By:Jem Meeks
--- NOTE | 2021-08-14 16:57 | Hospitalist Progress Note ---
Date of Service August 14, 2021 Assessment & Plan (1) Acute cholecystitis: Plan: Acute cholecystitis -CT ABD:5 mm calcific stone within the cystic duct. Mildly distended gallbladder with mild pericholecystic infiltration. The findings favor acute cholecystitis. Numerous hepatic cysts. Hepatic steatosis. No bowel obstruction. No bowel wall thickening. -Gall Bladder USD:Mild gallbladder wall thickening with positive sonographic Dsouza sign. Sludge within the gallbladder. Small stone within the cystic duct on CT likely occult by sonography. These findings favor acute cholecystitis. If indicated, a hepatobiliary scan could be obtained. No biliary ductal dilatation. Hepatic steatosis. Numerous hepatic cysts. -Plan for laparoscopic cholecystectomy Continue Zosyn, IV fluids Appreciate surgery input Pain control (2) Abdominal pain, acute, epigastric: Plan: Secondary to above CTA of the chest did not show any pulmonary emboli and/or acute process within the chest (3) Hx of CABG: Plan: History of CAD and status post CABG No acute cardiac symptoms EKG remains unremarkable and troponin negative Echo reviewed from 06/20/2020 with EF of 55 to 60% Continue home meds (4) Enlarged aorta: Plan: History of aortic aneurysm status post repair No acute findings on CTA (5) History of hypertension: Plan: Continue metoprolol,Lisinopril Monitor BP DVT Px: SCDs for now CODE STATUS Full Code Admission and Anticipated Discharge Date Admission Date: August 13, 2021 Subjective Patient is seen and examined at bedside Plan for laparoscopic cholecystectomy today States having epigastric abdominal pain associated with nausea Denies chest pain, shortness of breath, dizziness Offers no other complaints Review of Systems Review of Systems: All systems reviewed & are unremarkable except as noted in Subjective Physical Exam Physical Exam: Physical Exam: Vitals signs as noted above General Appearance:Obese, no apparent distress Head: normocephalic, Atraumatic Eyes: normal inspection, EOMI Neck: supple, Trachea midline Respiratory/Chest: Normal breath sounds, CTA Cardiovascular: S1, S2, No murmur Abdomen/GI:Soft, Epigastric tender, distended, Bowel sounds present Extremities/Musculoskeletal:normal inspection, no edema Neurologic/Psych:AAOX3, grossly no focal neurological deficits Skin: normal color, warm Results & Data Results & Data ([facility]) Vital Signs (Past 12 Hours) Vital Signs Temp Pulse Pulse Pulse Resp BP BP 08/14/21 15:50 36.9 C 83 150/90 H 08/14/21 15:30 86 18 08/14/21 15:20 84 18 08/14/21 15:10 37.6 C H 85 16 08/14/21 15:00 86 16 08/14/21 14:50 94 H 12 08/14/21 14:42 38.0 C H 85 12 08/14/21 11:58 37.8 C H 78 20 08/14/21 11:42 80 165/80 H 08/14/21 11:20 36.9 C 82 18 08/14/21 07:51 36.9 C 88 20 08/14/21 06:07 80 147/82 H BP Pulse Ox 08/14/21 15:50 94 08/14/21 15:30 136/69 95 08/14/21 15:20 135/70 95 08/14/21 15:10 137/74 95 08/14/21 15:00 150/71 H 95 08/14/21 14:50 149/76 H 96 08/14/21 14:42 139/93 96 08/14/21 11:58 168/89 H 94 08/14/21 11:42 08/14/21 11:20 157/87 H 90 08/14/21 07:51 160/84 H 95 08/14/21 06:07 Laboratory Results Short CBC 08/14/21 Range/Units 08:05 WBC 11.89 H (4.8-10.8) K/uL Hgb 14.3 (14.0-18.0) g/dL Hct 42.0 (42-52) % Plt Count 233 (130-400) K/uL BMP 08/14/21 08:05 Sodium 135 L Potassium 4.2 Chloride 107 Carbon Dioxide 21 BUN 17 Creatinine 1.76 H Glucose 115 H Calcium 8.7
[2021-08-14] MEDS: FINASTERIDE 5 MG TAB PO SCH (21:00)
[2021-08-14] MEDS: PRAVASTATIN SOD 40 MG TAB PO SCH (21:00)
[2021-08-14] MEDS: METOPROLOL SUCC 25MG EXT REL TAB PO SCH (21:00)
[2021-08-14] MEDS: PANTOprazole 40 MG TAB PO SCH (21:00)
[2021-08-14] MEDS: TAMSULOSIN HCL 0.4 MG CAP PO SCH (21:00)
[2021-08-15] MEDS: NSS + 20MEQ KCL 20 MEQ/1,000 ML BAG IV SCH ×2 (02:07→12:12)
[2021-08-15] MEDS: PIPERACILLIN/TAZOBACTAM 3.375 GM in DEXTROSE 5% 100 ML IV SCH ×3 (04:48→21:57)
[2021-08-15] MEDS: HYDROmorphone INJ 0.5 MG/0.5 ML SYR IV PRN ×3 (05:28→21:13)
[2021-08-15 06:20] LABS: Hematocrit (blood only) 38.9 % (42-52); Hemoglobin 13.4 g/dL (14.0-18.0); Mean Corpuscular Hemoglobin 32.6 pg (25-34); Mean Corpuscular Hgb Conc 34.4 g/dL (32-36); Mean Corpuscular Volume 94.6 fL (80-100); Mean Platelet Volume 9.4 fL (7.4-10.4); Platelet Count 210 K/uL (130-400); RDW Coefficient of Variation 13.5 % (11.5-14.5); RDW Standard Deviation 46.6 fL (36.4-46.3); Red Blood Count 4.11 M/uL (4.7-6.1); White Blood Count 15.48 K/uL (4.8-10.8)
[2021-08-15 06:48] LABS: BUN Creatinine Ratio 10.2 (10-20); Calcium 8.3 mg/dl (8.5-10.1); Est GFR (African American) 40.1 ml/min; Est GFR (Non-African American) 34.6 ml/min; Potassium 4.2 mmol/L (3.5-5.1)
[2021-08-15] MEDS: EZETIMIBE 10 MG TABLET PO SCH (09:20)
[2021-08-15] MEDS: lisinopril 5 MG TAB PO SCH (09:20)
[2021-08-15] MEDS: ASPIRIN 81 MG ECTAB PO SCH (09:20)
--- NOTE | 2021-08-15 09:51 | Surgery Progress Note ---
Date of Service August 15, 2021 Assessment & Plan (1) Acute cholecystitis: Plan: POD 1 lap evelio rise in WBC not surprising given condition of gallbladder afebrile, HR normalized Creatine also up slightly continue IV abx he is anxious to go home but needs additional IV tx Admission and Anticipated Discharge Date Admission Date: August 13, 2021 Supervising Physician Co-Signing Physician Notes s&e, agree with above. POD#1 lap evelio for gangrenous cholecystitis, doing well. feels much better, tolerating diet, pain controlled. abd soft, nt, nd, incisions w/o infx. wbc 15, expected. diet as tolerated, outpatient abx. d/c when stable from medicine standpoint. Subjective tolerating diet, minimal pain Physical Exam Gastrointestinal (Abdomen): Inspection/Auscultation: abdomen not distended Percussion/Palpation: abdomen soft Results & Data ([facility]) Vital Signs (Past 12 Hours) Vital Signs Temp Pulse Pulse Resp BP BP Pulse Ox 08/15/21 08:12 36.6 C 80 20 131/74 92 08/15/21 07:18 85 08/15/21 03:17 37.1 C 90 18 117/71 92 08/14/21 23:40 86 08/14/21 23:20 37.3 C 98 H 18 120/67 93 08/14/21 22:00 91 H 29 H 93 PG Care Time/CCT Total # of Minutes Spent Total Time Spent with Patient: Total time spent is greater than 50% in coordination of care (as documented) at patient's floor/unit and/or counseling patient: Coding Level of Care Code None Diagnoses Acute cholecystitis K81.0
[2021-08-15] MEDS ORDERED: INFLUENZA VACCINE HIGH DOSE PF 65+ 0.7 ML SYR IM ONE (10:21)
--- NOTE | 2021-08-15 15:21 | Hospitalist Progress Note ---
Date of Service August 15, 2021 Assessment & Plan (1) Acute cholecystitis: Plan: Acute cholecystitis -CT ABD:5 mm calcific stone within the cystic duct. Mildly distended gallbladder with mild pericholecystic infiltration. The findings favor acute cholecystitis. Numerous hepatic cysts. Hepatic steatosis. No bowel obstruction. No bowel wall thickening. -Gall Bladder USD:Mild gallbladder wall thickening with positive sonographic Dsouza sign. Sludge within the gallbladder. Small stone within the cystic duct on CT likely occult by sonography. These findings favor acute cholecystitis. If indicated, a hepatobiliary scan could be obtained. No biliary ductal dilatation. Hepatic steatosis. Numerous hepatic cysts. -S/P laparoscopic cholecystectomy POD #1 Continue Zosyn Appreciate surgery input Pain control Persistent leukocytosis Tolerating diet Likely discharge tomorrow if stable (2) Abdominal pain, acute, epigastric: Plan: Secondary to above CTA of the chest did not show any pulmonary emboli and/or acute process within the chest (3) Hx of CABG: Plan: History of CAD and status post CABG No acute cardiac symptoms EKG remains unremarkable and troponin negative Echo reviewed from 06/20/2020 with EF of 55 to 60% Continue home meds (4) Enlarged aorta: Plan: History of aortic aneurysm status post repair No acute findings on CTA (5) History of hypertension: Plan: Continue metoprolol,Lisinopril Monitor BP DVT Px: SCDs CODE STATUS Full Code Admission and Anticipated Discharge Date Admission Date: August 13, 2021 Subjective Patient is seen and examined at bedside Patient still has generalized abdominal pain at incision site Tolerating diet No bowel movement today Family at bedside Denies chest pain, shortness of breath, dizziness Review of Systems Review of Systems: All systems reviewed & are unremarkable except as noted in Subjective Physical Exam Physical Exam: Physical Exam: Vitals signs as noted above General Appearance:Obese, no apparent distress Head: normocephalic, Atraumatic Eyes: normal inspection, EOMI Neck: supple, Trachea midline Respiratory/Chest: Normal breath sounds, CTA Cardiovascular: S1, S2, No murmur Abdomen/GI:Soft, Mild generalized tender, + Laparoscopic incisions, Bowel sounds present Extremities/Musculoskeletal:normal inspection, no edema Neurologic/Psych:AAOX3, grossly no focal neurological deficits Skin: normal color, warm Results & Data Results & Data ([facility]) Vital Signs (Past 12 Hours) Vital Signs Temp Pulse Pulse Resp BP Pulse Ox 08/15/21 15:00 37.0 C 90 20 156/78 H 90 08/15/21 11:10 37.1 C 85 16 153/83 H 94 08/15/21 08:12 36.6 C 80 20 131/74 92 08/15/21 07:18 85 Laboratory Results Short CBC 08/15/21 Range/Units 05:44 WBC 15.48 H (4.8-10.8) K/uL Hgb 13.4 L (14.0-18.0) g/dL Hct 38.9 L (42-52) % Plt Count 210 (130-400) K/uL BMP 08/15/21 05:44 Sodium 136 Potassium 4.2 Chloride 108 H Carbon Dioxide 19 L BUN 19 H Creatinine 1.86 H Glucose 133 H Calcium 8.3 L
[2021-08-15] MEDS: FINASTERIDE 5 MG TAB PO SCH (21:17)
[2021-08-15] MEDS: METOPROLOL SUCC 25MG EXT REL TAB PO SCH (21:17)
[2021-08-15] MEDS: TAMSULOSIN HCL 0.4 MG CAP PO SCH (21:18)
[2021-08-15] MEDS: PANTOprazole 40 MG TAB PO SCH (21:18)
[2021-08-15] MEDS: PRAVASTATIN SOD 40 MG TAB PO SCH (21:19)
[2021-08-16] MEDS ORDERED: ACETAMINOPHEN 325 MG TAB PO PRN (03:20)
[2021-08-16] MEDS ORDERED: ACETAMINOPHEN 325 MG TAB ONE (03:34)
[2021-08-16] MEDS: PIPERACILLIN/TAZOBACTAM 3.375 GM in DEXTROSE 5% 100 ML IV SCH ×2 (04:49→12:25)
[2021-08-16 07:11] LABS: Hematocrit (blood only) 37.5 % (42-52); Hemoglobin 12.8 g/dL (14.0-18.0); Mean Corpuscular Hemoglobin 32.3 pg (25-34); Mean Corpuscular Hgb Conc 34.1 g/dL (32-36); Mean Corpuscular Volume 94.7 fL (80-100); Mean Platelet Volume 9.1 fL (7.4-10.4); Platelet Count 245 K/uL (130-400); RDW Coefficient of Variation 13.6 % (11.5-14.5); RDW Standard Deviation 47.5 fL (36.4-46.3); Red Blood Count 3.96 M/uL (4.7-6.1); White Blood Count 14.13 K/uL (4.8-10.8)
[2021-08-16 07:53] LABS: BUN Creatinine Ratio 12.9 (10-20); Calcium 8.7 mg/dl (8.5-10.1); Creatinine Clr Calc Pharmacy 37.8 ml/min; Est GFR (African American) 39.9 ml/min; Est GFR (Non-African American) 34.4 ml/min; Potassium 3.8 mmol/L (3.5-5.1)
[2021-08-16] MEDS: ASPIRIN 81 MG ECTAB PO SCH (08:36)
[2021-08-16] MEDS: lisinopril 5 MG TAB PO SCH (08:36)
[2021-08-16] MEDS: EZETIMIBE 10 MG TABLET PO SCH (08:36)
--- NOTE | 2021-08-16 13:19 | Hospitalist Progress Note ---
Date of Service August 16, 2021 Assessment & Plan (1) Acute cholecystitis: Plan: Acute cholecystitis -CT ABD:5 mm calcific stone within the cystic duct. Mildly distended gallbladder with mild pericholecystic infiltration. The findings favor acute cholecystitis. Numerous hepatic cysts. Hepatic steatosis. No bowel obstruction. No bowel wall thickening. -Gall Bladder USD:Mild gallbladder wall thickening with positive sonographic Dsouza sign. Sludge within the gallbladder. Small stone within the cystic duct on CT likely occult by sonography. These findings favor acute cholecystitis. If indicated, a hepatobiliary scan could be obtained. No biliary ductal dilatation. Hepatic steatosis. Numerous hepatic cysts. -S/P laparoscopic cholecystectomy POD #2 On Zosyn Appreciate surgery input Pain control leukocytosis trending down Tolerating diet Advised to follow-up with surgeon as outpatient (2) Abdominal pain, acute, epigastric: Plan: Secondary to above CTA of the chest did not show any pulmonary emboli and/or acute process within the chest (3) Hx of CABG: Plan: History of CAD and status post CABG No acute cardiac symptoms EKG remains unremarkable and troponin negative Echo reviewed from 06/20/2020 with EF of 55 to 60% Continue home meds (4) Enlarged aorta: Plan: History of aortic aneurysm status post repair No acute findings on CTA (5) History of hypertension: Plan: Continue metoprolol,Lisinopril Monitor BP DVT Px: SCDs CODE STATUS Full Code Admission and Anticipated Discharge Date Admission Date: August 13, 2021 Subjective Patient is seen and examined at bedside Abdominal pain much improved States feeling better today Tolerating diet No new complaints Eager to get discharged Denies chest pain, shortness of breath, dizziness Review of Systems Review of Systems: All systems reviewed & are unremarkable except as noted in Subjective Physical Exam Physical Exam: Physical Exam: Vitals signs as noted above General Appearance:Obese, no apparent distress Head: normocephalic, Atraumatic Eyes: normal inspection, EOMI Neck: supple, Trachea midline Respiratory/Chest: Normal breath sounds, CTA Cardiovascular: S1, S2, No murmur Abdomen/GI:Soft, Non tender, + Laparoscopic incisions, Bowel sounds present Extremities/Musculoskeletal:normal inspection, no edema Neurologic/Psych:AAOX3, grossly no focal neurological deficits Skin: normal color, warm Results & Data Results & Data ([facility]) Vital Signs (Past 12 Hours) Vital Signs Temp Pulse Pulse Resp BP BP Pulse Ox 10/20/21 11:00 37.4 C 74 20 146/79 H 91 08/16/21 07:41 71 08/16/21 07:00 37.2 C 77 20 161/77 H 92 08/16/21 03:15 36.9 C 83 20 168/86 H 94 Laboratory Results Short CBC 08/16/21 Range/Units 06:45 WBC 14.13 H (4.8-10.8) K/uL Hgb 12.8 L (14.0-18.0) g/dL Hct 37.5 L (42-52) % Plt Count 245 (130-400) K/uL BMP 08/16/21 06:45 Sodium 134 L Potassium 3.8 Chloride 106 Carbon Dioxide 21 BUN 24 H Creatinine 1.87 H Glucose 104 H Calcium 8.7
--- NOTE | 2021-08-16 13:22 | Discharge Summary ---
Date of Service August 16, 2021 Admission HPI Per Admitting Provider He is a 76-year-old obese male with significant past medical history of CAD status post CABG, history of aortic root repair and hypertension has been complaining of epigastric pain started around 10 PM last night associated with nausea, dry heaves and shortness of breath. No fever and no chills and the pain lasted for about more than an hour. The pain started to come back again early in the morning around 4 AM and continued for some time when he planned to come to the emergency room. He still has pain in the emergency room in the epigastric area without radiation of pain with nausea but no vomiting. He den ies any chest pain or palpitation, any fever and no chills, any problem with his urine and bowel habit. He was noted to have mild elevated white count with CT and ultrasound evidence of acute cholecystitis. He was admitted to medical telemetry unit for continuation of care. Surgery consulted Admission Exam Per Admitting Provider Physical Exam Physical Exam: Lying in bed with minimal epigastric discomfort and pain Constitutional: well developed, well nourished, + ill appearing and + obese Eyes: PERRL, conjunctivae normal, anicteric sclerae ENMT: external ear and nose normal, oropharynx normal Neck: trachea midline, no thyromegaly Respiratory: no respiratory distress and no cough Auscultation: lungs clear to auscultation bilaterally and + diminished lung sounds; no crackles Cardiovascular: Rate/Rhythm: regular rate and regular rhythm; not tachycardic Heart Sounds: normal S1, normal S2 and + murmur (2/6 ESM over precordium) Gastrointestinal (Abdomen): Inspection/Auscultation: + abdomen distended and normal bowel sounds Percussion/Palpation: + abdomen tender (Tender in the epigastrium and right upper quadrant with positive Dsouza sig) and abdomen soft Musculoskeletal: No acute arthritis in any joint Neurologic: Alert, awake and oriented x3. No focal sensory or motor deficit appreciated Principal Diagnosis Acute cholecystitis Laparoscopic cholecystectomy Discharge Data Allergies Allergy/AdvReac Type Severity Reaction Status Date / Time morphine AdvReac Mild Hypotension, Verified 08/13/21 14:56 "MAKES ME MEAN" Sulfa (Sulfonamide AdvReac Mild NAUSEA, Verified 08/13/21 14:56 Antibiotics) FATIGUE Consultations 08/13/21 15:04 ED Decision to Admit Stat 08/13/21 17:24 Consult General Surgery Routine Procedures Performed Operation Date: 08/14/21 08:40 Actual Procedures p Laparoscopic Cholecystectomy(Not Applicable) - Chris Daniels DO, FACS Ordered Studies 08/13/21 13:27 CT abd pelvis IV con only Stat CT angio chest PE protocol Stat 08/13/21 15:15 US gallbladder Urgent Hospital Course (1) Acute cholecystitis: Acute cholecystitis -CT ABD:5 mm calcific stone within the cystic duct. Mildly distended gallbladder with mild pericholecystic infiltration. The findings favor acute cholecystitis. Numerous hepatic cysts. Hepatic steatosis. No bowel obstruction. No bowel wall thickening. -Gall Bladder USD:Mild gallbladder wall thickening with positive sonographic Dsouza sign. Sludge within the gallbladder. Small stone within the cystic duct on CT likely occult by sonography. These findings favor acute cholecystitis. If indicated, a hepatobiliary scan could be obtained. No biliary ductal dilatation. Hepatic steatosis. Numerous hepatic cysts. -S/P laparoscopic cholecystectomy POD #2 On Zosyn Appreciate surgery input Pain control leukocytosis trending down Tolerating diet Advised to follow-up with surgeon as outpatient (2) Abdominal pain, acute, epigastric: Secondary to above CTA of the chest did not show any pulmonary emboli and/or acute process within the chest (3) Hx of CABG: History of CAD and status post CABG No acute cardiac symptoms EKG remains unremarkable and troponin negative Echo reviewed from 06/20/2020 with EF of 55 to 60% Continue home meds (4) Enlarged aorta: History of aortic aneurysm status post repair No acute findings on CTA (5) History of hypertension: Continue metoprolol,Lisinopril Monitor BP DVT Px: SCDs CODE STATUS Full Code Total Time Total Time Spent Total Time Spent (In Minutes): 40 minutes Discharge Plan Discharge Items Patient Disposition: Home - Self-Care Reason For Visit: ACUTE CHOLECYSTITIS Discharge Diagnosis: Acute cholecystitis Laparoscopic cholecystectomy Activity: As commented below Lifting: No more than 10 pounds Bathing Comment: Ok to shower over skin glue Exercise/Sports: Gradually increase as tolerated Driving/Machine Use: Resume 3 days after discharge Non-emergency contact: Primary Care Provider and Surgeon Call non-emergency contact if: you have any medication questions, your pain is not controlled, your temperature is above 101.5 and your wound has increased redness Follow-up/Referrals: Chambers,Chris M., DO, FACS [Physician] - (Please call to make an appt in 1-2 weeks) Joe Lopez MD [Primary Care Provider] - (Date & Time 08/21/2021 11:20 AM Provider Joe Lopez MD Department [facility] ) Diet: Heart Healthy Addtl Attending Provider Instructions: Follow-up with your primary care physician on 08/21/2021 11:20 AM Follow-up with your surgeon Dr. Daniels in 1-2 weeks as advised Seek immediate medical attention if your symptoms reoccur or worsen Please take all medications as instructed on discharge list below. Please call if you have any questions or problems. You can reach a [facility] hospitalist on duty at [facility] 24 hours a day by calling [phone] Pending Studies at Discharge: No Stand-Alone Forms: My [facility] WAYN, Smoking Cessation Medications and DC Order Prescriptions: New oxycodone-acetaminophen [Percocet] 5-325 mg tablet 1 - 2 tab PO Q4H PRN (Reason: pain, initial therapy, max 6 daily) Qty: 10 RF: 0 amoxicillin-pot clavulanate [Augmentin] 875-125 mg tablet 1 tab PO BID Qty: 14 RF: 0 Continued aspirin 81 mg Tablet,Delayed Release (Dr/Ec) 81 mg PO QAM RF: 0 polyethylene glycol 3350 [Miralax] 17 gram/dose Powder 17 g PO DAILY PRN (Reason: Constipation) RF: 0 finasteride [Proscar] 5 mg tablet 5 mg PO HS RF: 0 Centrum Silver Men 300-600-300 mcg Tablet 1 tab PO QAM RF: 0 Probiotic 3 billion cell Capsule 3,000 mmu cells PO QAM RF: 0 lisinopril 5 mg tablet 5 mg PO QAM RF: 0 metoprolol succinate 25 mg tablet extended release 24 hr 25 mg PO QPM RF: 0 omeprazole magnesium [Prilosec OTC] 20 mg Tablet,Delayed Release (Dr/Ec) 20 mg PO QPM RF: 0 cholecalciferol (vitamin D3) 25 mcg (1,000 unit) Capsule 1,000 unit PO DAILY RF: 0 tamsulosin 0.4 mg Capsule 0.4 mg PO HS RF: 0 pravastatin 40 mg tablet 40 mg PO HS RF: 0 ezetimibe 10 mg tablet 10 mg PO DAILY RF: 0 Discontinued acetaminophen 500 mg Tablet 1,000 mg PO Q6H PRN (Reason: Pain) RF: 0 Discharge Orders: Discharge Order (Routine); Ordered 08/16/21 Ordered By: Brennon Silverio Admission Data Admit Date/Time: 08/13/21 17:02 Attending Provider: Brennon Silverio Admit Provider: Bhavani Charles Primary Care Provider: Joe Lopez Other Providers: Bhavani Charles ; Chris Daniels
== END 2021-08-16 14:11 | disposition home or self-care (01) | DRG 419 ==
LOC: ED 12:52 → 2N 17:02 → SUATTDRO 17:02 → 2N 08-14 01:18

== ENCOUNTER 2023-01-20 16:34 | Inpatient (IN) ==
--- NOTE | 2023-01-20 17:33 | Emergency Department Note ---
Impression & Plan Pneumonia, CASSANDRA (acute kidney injury), Weakness ED Provider Note NAME: JULIO DAY Jr AGE: 77 SEX: M : 1945 ARRIVES VIA: Walk-In INFORMANT: Patient, the patient's family members ED PROVIDER(S): Sandip Schmidt DO CHIEF COMPLAINT: Near syncope HPI: The patient is a 77-year-old male who presented to the emergency department for an evaluation of near syncope. The patient states that he thinks he may have had a stroke yesterday. He states he was very weak. He is also noticed that he has been having trouble with discomfort in his chest as well as difficulty breathing. The patient denies having any fever or cough. He denies having any lower extremity swelling. He states he was so short of breath that he had to use his BiPAP to be able to breathe over the last couple days. The patient states that he has been compliant with his outpatient medications. ROS: See above HPI for pertinent positives & negatives. A total of 10 systems reviewed and were otherwise negative. PAST MEDICAL HISTORY: See Below PAST SURGICAL HISTORY: See Below FAMILY HISTORY: See Below SOCIAL HISTORY: See Below HOME MEDICATIONS: See Below ALLERGIES: See Below VITALS: See Below PHYSICAL EXAMINATION: GENERAL: Patient is awake alert in no acute distress patient is resting comfortably and showing no signs of anxiety EYES: The conjunctivae are clear. The pupils are round and reactive. EARS, NOSE, MOUTH AND THROAT: The nose is without any evidence of any deformity. NECK: The neck is nontender and supple. RESPIRATORY: Normal respiratory effort is noted there is no evidence of wheezing rhonchi or rales CARDIOVASCULAR: Regular rate and rhythm noted there no murmurs rubs or gallops normal S1 normal S2. GASTROINTESTINAL: The abdomen is soft. Abdomen is nontender. MUSCULOSKELETAL/EXTREMITIES: There is no evidence of gross deformity full range of motion is noted in the hips and shoulders. SKIN: There is no obvious evidence of any rash. There are no petechiae, pallor or cyanosis noted. NEUROLOGIC: Patient is awake alert and oriented x3. Strength is symmetric but diminished. Speech was clear. There is no facial droop. MEDICAL DECISION MAKING: The patient is a 77-year-old male who presented to the emergency department for an evaluation of difficulty breathing and generalized weakness. The patient did not have significantly abnormal lung sounds on physical exam however chest x-ray appears to be consistent with a left-sided infiltrate. The patient was found have an elevation in his white blood cell count. He was short of breath with exertion. The patient had an elevation in his D-dimer however this does not appear to be elevated when corrected for age. I discussed the patient's laboratory and radiographic studies with him and his family. He was treated with IV fluids and IV antibiotics in emergency department. He was reevaluated multiple times. I discussed his condition with the on-call [facility]. They have agreed to evaluate the patient in the emergency department for further management and disposition. He was also found have a slight elevation in his creatinine compared to baseline. Triage Nursing notes reviewed. Prior medical records reviewed Vital Signs: reviewed and remarkable for tachycardia elevated blood pressure and tachypnea. Differential diagnosis: Infection, dehydration, metabolic abnormality, hypo/hyperglycemia, electrolyte disturbance, anemia, hypoxia, cardiac sources, intracerebral event, toxicologic, neurologic, as well as other pathologies. ER treatment provided: See below Diagnostics interpreted by me: ECG: EKG was obtained in the emergency department. My interpretation is normal sinus rhythm at 87 bpm. There is no ectopy. ST segment depression with T wave inversion was noted in the high lateral leads. This was compared to a tracing from April 21, 2022. The T wave inversions are not new however the ST segment depression does appear increased compared to previous. Cardiac Monitoring: An order was placed for continuous cardiac monitoring. The monitor shows a rate of 119 bpm with sinus tachycardia. Laboratory studies: As stated above and show below. Imaging studies: See below. Radiographic imaging was reviewed by myself Consultation(s): I discussed this case with Tanika who is on-call for the [facility] group. ED COURSE: Patient did have an elevated D-dimer however age adjustment would not suggest further work-up. I will defer this to the admitting team as the patient's creatinine was slightly elevated. Past Med/Surg History Medical History Aneurysm, ascending aorta HX OF - 4.5 cm per [facility] echo 08/11/19...SURGICALLY REPAIRED Benign prostatic hyperplasia CAD (coronary artery disease) Dyslipidemia Esophageal dysmotility (02/23/12) PT DENIES , DENIES TROUBLE SWALLOWING GERD (gastroesophageal reflux disease) Hypertension Obesity JEFFERSON (obstructive sleep apnea) CPAP SOB (shortness of breath) on exertion PT HX INHALER - REPORTS WAS UNABLE TO AFFORD AND INHALER D/C'D...CPAP USE...PT REPORTS THINKS SOB MAY BE RELATED TO AMOUNT OF BLOOD PRESSURE MEDICINE HE TAKES AND PLANS TO DISCUSS WITH Surgical History History of cataract surgery RT History of colonoscopy History of removal of cyst [place]HIND EAR History of shoulder surgery Hx laparoscopic cholecystectomy (08/14/21) Laparoscopic Cholecystectomy Dr. Daniels 08/14/21 S/P ascending aortic aneurysm repair Aug 2019 in [place] (TRIPLE BYPASS AND ANEURYSM REPAIR 1 SURGICAL PROCEDURE) S/P CABG (coronary artery bypass graft) Aug 2019 in [place] (TRIPLE BYPASS AND ANEURYSM REPAIR 1 SURGICAL PROCEDURE) Family History Mother Heart disease Breast cancer Father Heart disease Social History Smoking Status: Former smoker Second Hand Exposure: Yes (IN THE PAST); Hx Alcohol Use: Yes Hx Substance Use: No Preferred Language: Palauan Communication Ability: Effective Youth Manager Required: No Beliefs That Will Affect Care: None marital status: Current Living Situation: Spouse Current Living Situation Comment: [facility] current occupational status: retired current occupation: Retired Feels Safe at Home: Yes Assistive Devices: Walker Allergies Allergies Allergy/AdvReac Type Severity Reaction Status Date / Time morphine AdvReac Intermediate Hypotension, Verified 01/20/23 18:36 "MAKES ME MEAN" Sulfa (Sulfonamide AdvReac Intermediate NAUSEA, Verified 01/20/23 18:36 Antibiotics) FATIGUE Home Meds Home Medications Medication Instructions Recorded Confirmed aspirin 81 mg tablet,delayed 81 mg PO QAM 08/16/19 01/20/23 release finasteride 5 mg tablet (Proscar) 5 mg PO QAM 08/16/19 01/20/23 lactobacillus combination no.4 3 3,000 mmu cells PO 3XWK 08/16/19 01/20/23 billion cell capsule (Probiotic) iykmizpk-rpp-geccx acid 300 1 tab PO QAM 08/16/19 01/20/23 mcg-lycopene 600 mcg-lutein 300 mcg tablet (Centrum Silver Men) polyethylene glycol 3350 17 17 g PO DAILY PRN Constipation 10/20/19 03/26/23 gram/dose oral powder (Miralax) cholecalciferol (vitamin D3) 25 1,000 unit PO QAM 06/19/20 01/20/23 mcg (1,000 unit) capsule lisinopril 5 mg tablet 5 mg PO QAM 06/19/20 01/20/23 metoprolol succinate 25 mg 25 mg PO HS 06/19/20 01/20/23 tablet,extended release 24 hr omeprazole magnesium 20 mg 40 mg PO QAM 06/19/20 01/20/23 tablet,delayed release (Prilosec OTC) tamsulosin 0.4 mg capsule 0.4 mg PO HS 03/23/21 01/20/23 ezetimibe 10 mg tablet 10 mg PO QAM 08/13/21 01/20/23 evolocumab 140 mg/mL subcutaneous 140 mg subcut Q14D 03/07/22 01/20/23 pen injector (Christopher Cameron) isosorbide mononitrate 30 mg 30 mg PO QAM 03/07/22 01/20/23 tablet,extended release 24 hr nitroglycerin 0.4 mg sublingual 0.4 mg sublingual DIRECTED PRN 03/07/22 01/20/23 tablet Chest Pain acetaminophen 325 mg tablet 650 mg PO HS 01/20/23 01/20/23 (Tylenol) cyanocobalamin (vitamin B-12) 500 500 mcg PO DAILY 01/20/23 01/20/23 mcg tablet (Vitamin B-12) famotidine 20 mg tablet 20 mg PO HS 01/20/23 01/20/23 icosapent ethyl 1 gram capsule 2 g PO BIDM 01/20/23 01/20/23 Previous Rx's Medication Instructions Recorded meclizine 25 mg tablet 25 mg PO TID PRN dizziness #21 tabs 04/21/22 Results & Data (ED) Vital Signs Vital Signs - 24 hr 01/20/23 16:39 01/20/23 17:12 01/20/23 17:30 Temperature 37.1 C Temperature Source Temporal Artery Scan Pulse Rate 92 H 90 Pulse Rate [Apical] Pulse Rate from SpO2 Sensor Respiratory Rate 18 Respiratory Effort / Characteristics Non-Labored Spontaneous Respiratory Depth Normal Respiratory Pattern Regular Blood Pressure 143/76 H Blood Pressure [Left Arm] Blood Pressure Mean 98 Blood Pressure Mean [Left Arm] Blood Pressure Position Sitting Pulse Oximetry 95 Oxygen Delivery Method Room Air Room Air Sepsis Recent Fever Within 48 Hours No Sepsis New/Unexplained Change in Mental Status N/A Sepsis Action Taken by Nursing No Action Required 01/20/23 17:10 01/20/23 17:19 01/20/23 17:19 Temperature Temperature Source Pulse Rate 90 87 Pulse Rate [Apical] Pulse Rate from SpO2 Sensor 90 87 Respiratory Rate 20 22 Respiratory Effort / Characteristics Respiratory Depth Respiratory Pattern Blood Pressure 131/66 Blood Pressure [Left Arm] Blood Pressure Mean 87 Blood Pressure Mean [Left Arm] Blood Pressure Position Pulse Oximetry 95 95 Oxygen Delivery Method Sepsis Recent Fever Within 48 Hours Sepsis New/Unexplained Change in Mental Status Sepsis Action Taken by Nursing 01/20/23 17:30 01/20/23 20:00 01/20/23 21:11 Temperature Temperature Source Pulse Rate 83 119 H Pulse Rate [Apical] 88 Pulse Rate from SpO2 Sensor 85 Respiratory Rate 22 30 H Respiratory Effort / Characteristics Respiratory Depth Respiratory Pattern Blood Pressure Blood Pressure [Left Arm] 142/90 H Blood Pressure Mean Blood Pressure Mean [Left Arm] 107 Blood Pressure Position Pulse Oximetry 94 97 Oxygen Delivery Method Room Air Sepsis Recent Fever Within 48 Hours Sepsis New/Unexplained Change in Mental Status Sepsis Action Taken by Intermediate Medications Current Medication List: was personally reviewed by me Laboratory Data Attestation: I reviewed the patient's lab results. 01/20/23 17:20 01/20/23 17:20 Lab Results 01/20/23 01/20/23 01/20/23 Range/Units 17:20 17:20 17:20 WBC 19.66 H (4.8-10.8) K/ul RBC 4.38 L (4.70-6.10) M/uL Hgb 14.2 (14.0-18.0) g/dl Hct 40.7 L (42.0-52.0) % MCV 92.9 (80.0-100.0) fL MCH 32.4 (25.0-34.0) pg MCHC 34.9 (32.0-36.0) g/dL RDW Std Deviation 43.8 (36.4-46.3) fL RDW Coeff of Ibrahima 12.8 (11.5-14.5) % Plt Count 220 (130-400) K/uL MPV 9.0 L (9.4-12.4) fL Immature Gran % (Auto) 0.5 % Neut % (Auto) 79.5 % Lymph % (Auto) 9.1 % [place] % (Auto) 10.2 % Eos % (Auto) 0.4 % Baso % (Auto) 0.3 % Neut # (Auto) 15.65 H (1.40-6.50) K/uL Lymph # (Auto) 1.78 (1.2-3.4) K/uL [place] # (Auto) 2.00 H (0.11-0.59) K/uL Eos # (Auto) 0.08 (0-0.50) K/uL Baso # (Auto) 0.06 (0-0.2) K/uL Immature Gran # (Auto) 0.09 (0.01-0.20) K/uL PT 10.7 (9.0-12.0) Seconds INR 1.0 (0.9-1.1) APTT 29.0 (21.0-31.0) Seconds PTT Ratio 1.1 D-Dimer 740 H* (0-500) ug/L FEU Sodium 134 L (136-145) mmol/L Potassium 3.9 (3.5-5.1) mmol/L Chloride 102 (98-107) mmol/L Carbon Dioxide 24 (21-32) mmol/L Anion Gap 8 (3-11) BUN 20 (6-23) mg/dl Creatinine 1.88 H (0.6-1.4) mg/dl Est Cr Clr Drug Dosing Not Reportable Est GFR ( Amer) 39.3 ml/min Est GFR (Non-Af Amer) 33.9 ml/min BUN/Creatinine Ratio 10.6 (10-20) Glucose 132 H (70-99(Fasting)) mg/dl Lactate (0.4-2.0) mmol/L Calcium 8.8 (8.6-10.3) mg/dl Magnesium 2.0 (1.7-2.4) mg/dl Total Bilirubin 0.8 (0.2-1.0) mg/dl AST 30 (13-39) U/L ALT 56 H (7-52) U/L Alkaline Phosphatase 74 (34-104) U/L Troponin I High Sens 10.3 (0-20) pg/ml B-Natriuretic Peptide (0-100) pg/ml Total Protein 7.1 (6.0-8.3) gm/dl Albumin 4.1 (3.4-5.0) gm/dl Globulin 3.0 (2.5-4.0) gm/dl Albumin/Globulin Ratio 1.4 (0.9-2) TSH (0.300-4.500) uIu/ml Urine Color Urine Appearance (Clear) Urine pH (4.5-7.5) Ur Specific [place] (1.000-1.030) Urine Protein (Negative) Urine Glucose (UA) (Negative) Urine Ketones (Negative) Urine Blood (Negative) Urine Nitrite (Negative) Urine Bilirubin (Negative) Urine Urobilinogen (Negative) Ur Leukocyte Esterase (Negative) Urine WBC (Auto) (0-5) /hpf Urine RBC (Auto) (0-4) /hpf U Hyaline Cast (Auto) (0-5) /lpf U Epithel Cells (Auto) (0-5) /lpf Urine Bacteria (Auto) (Negative) SARS-CoV-2 (PCR) (Negative) Influenza Type A (PCR) (Neg) Influenza Type B (PCR) (Neg) RSV (RT-PCR) (Neg) 01/20/23 01/20/23 01/20/23 Range/Units 17:20 18:32 18:48 WBC (4.8-10.8) K/ul RBC (4.70-6.10) M/uL Hgb (14.0-18.0) g/dl Hct (42.0-52.0) % MCV (80.0-100.0) fL MCH (25.0-34.0) pg MCHC (32.0-36.0) g/dL RDW Std Deviation (36.4-46.3) fL RDW Coeff of Ibrahima (11.5-14.5) % Plt Count (130-400) K/uL MPV (9.4-12.4) fL Immature Gran % (Auto) % Neut % (Auto) % Lymph % (Auto) % [place] % (Auto) % Eos % (Auto) % Baso % (Auto) % Neut # (Auto) (1.40-6.50) K/uL Lymph # (Auto) (1.2-3.4) K/uL [place] # (Auto) (0.11-0.59) K/uL Eos # (Auto) (0-0.50) K/uL Baso # (Auto) (0-0.2) K/uL Immature Gran # (Auto) (0.01-0.20) K/uL PT (9.0-12.0) Seconds INR (0.9-1.1) APTT (21.0-31.0) Seconds PTT Ratio D-Dimer (0-500) ug/L FEU Sodium (136-145) mmol/L Potassium (3.5-5.1) mmol/L Chloride (98-107) mmol/L Carbon Dioxide (21-32) mmol/L Anion Gap (3-11) BUN (6-23) mg/dl Creatinine (0.6-1.4) mg/dl Est Cr Clr Drug Dosing Est GFR ( Amer) ml/min Est GFR (Non-Af Amer) ml/min BUN/Creatinine Ratio (10-20) Glucose (70-99(Fasting)) mg/dl Lactate 1.3 (0.4-2.0) mmol/L Calcium (8.6-10.3) mg/dl Magnesium (1.7-2.4) mg/dl Total Bilirubin (0.2-1.0) mg/dl AST (13-39) U/L ALT (7-52) U/L Alkaline Phosphatase (34-104) U/L Troponin I High Sens (0-20) pg/ml B-Natriuretic Peptide 68 (0-100) pg/ml Total Protein (6.0-8.3) gm/dl Albumin (3.4-5.0) gm/dl Globulin (2.5-4.0) gm/dl Albumin/Globulin Ratio (0.9-2) TSH 0.907 (0.300-4.500) uIu/ml Urine Color Urine Appearance (Clear) Urine pH (4.5-7.5) Ur Specific [place] (1.000-1.030) Urine Protein (Negative) Urine Glucose (UA) (Negative) Urine Ketones (Negative) Urine Blood (Negative) Urine Nitrite (Negative) Urine Bilirubin (Negative) Urine Urobilinogen (Negative) Ur Leukocyte Esterase (Negative) Urine WBC (Auto) (0-5) /hpf Urine RBC (Auto) (0-4) /hpf U Hyaline Cast (Auto) (0-5) /lpf U Epithel Cells (Auto) (0-5) /lpf Urine Bacteria (Auto) (Negative) SARS-CoV-2 (PCR) (Negative) Influenza Type A (PCR) (Neg) Influenza Type B (PCR) (Neg) RSV (RT-PCR) (Neg) 01/20/23 01/20/23 Range/Units 18:48 19:27 WBC (4.8-10.8) K/ul RBC (4.70-6.10) M/uL Hgb (14.0-18.0) g/dl Hct (42.0-52.0) % MCV (80.0-100.0) fL MCH (25.0-34.0) pg MCHC (32.0-36.0) g/dL RDW Std Deviation (36.4-46.3) fL RDW Coeff of Ibrahima (11.5-14.5) % Plt Count (130-400) K/uL MPV (9.4-12.4) fL Immature Gran % (Auto) % Neut % (Auto) % Lymph % (Auto) % [place] % (Auto) % Eos % (Auto) % Baso % (Auto) % Neut # (Auto) (1.40-6.50) K/uL Lymph # (Auto) (1.2-3.4) K/uL [place] # (Auto) (0.11-0.59) K/uL Eos # (Auto) (0-0.50) K/uL Baso # (Auto) (0-0.2) K/uL Immature Gran # (Auto) (0.01-0.20) K/uL PT (9.0-12.0) Seconds INR (0.9-1.1) APTT (21.0-31.0) Seconds PTT Ratio D-Dimer (0-500) ug/L FEU Sodium (136-145) mmol/L Potassium (3.5-5.1) mmol/L Chloride (98-107) mmol/L Carbon Dioxide (21-32) mmol/L Anion Gap (3-11) BUN (6-23) mg/dl Creatinine (0.6-1.4) mg/dl Est Cr Clr Drug Dosing Est GFR ( Amer) ml/min Est GFR (Non-Af Amer) ml/min BUN/Creatinine Ratio (10-20) Glucose (70-99(Fasting)) mg/dl Lactate (0.4-2.0) mmol/L Calcium (8.6-10.3) mg/dl Magnesium (1.7-2.4) mg/dl Total Bilirubin (0.2-1.0) mg/dl AST (13-39) U/L ALT (7-52) U/L Alkaline Phosphatase (34-104) U/L Troponin I High Sens (0-20) pg/ml B-Natriuretic Peptide (0-100) pg/ml Total Protein (6.0-8.3) gm/dl Albumin (3.4-5.0) gm/dl Globulin (2.5-4.0) gm/dl Albumin/Globulin Ratio (0.9-2) TSH (0.300-4.500) uIu/ml Urine Color Yellow Urine Appearance Clear (Clear) Urine pH 5.5 (4.5-7.5) Ur Specific [place] 1.014 (1.000-1.030) Urine Protein Negative (Negative) Urine Glucose (UA) Negative (Negative) Urine Ketones Negative (Negative) Urine Blood Negative (Negative) Urine Nitrite Negative (Negative) Urine Bilirubin Negative (Negative) Urine Urobilinogen Negative (Negative) Ur Leukocyte Esterase 1+ H (Negative) Urine WBC (Auto) 10-30 H (0-5) /hpf Urine RBC (Auto) 0-4 (0-4) /hpf U Hyaline Cast (Auto) 0 (0-5) /lpf U Epithel Cells (Auto) 5-10 H (0-5) /lpf Urine Bacteria (Auto) Negative (Negative) SARS-CoV-2 (PCR) NEGATIVE (Negative) Influenza Type A (PCR) Negative (Neg) Influenza Type B (PCR) Negative (Neg) RSV (RT-PCR) Negative (Neg) Administered Medications Discontinued Medications Furosemide (Furosemide 40 Mg/4 Ml Vial) 40 mg IV NOW STA Stop: 01/20/23 20:03 Last Admin: 01/20/23 20:10 Dose: 40 mg Documented By: JMB Ceftriaxone Sodium (Rocephin) 2,000 mg in 70 mls @ 140 mls/hr IV NOW STA Stop: 01/20/23 18:51 Last Infusion: 01/20/23 19:23 Dose: 0 mls/hr Documented By: Admin: 01/20/23 18:45 Dose: 140 mls/hr Documented By: CYDNEY Sodium Chloride (Nss 1000ml) 1,000 mls @ 999 mls/hr IV .Q1H1M ONE Stop: 01/20/23 19:24 Last Infusion: 01/20/23 19:27 Dose: 0 mls/hr Documented By: Admin: 01/20/23 18:44 Dose: 999 mls/hr Documented By: CYDNEY Imaging Data Attestation: I personally reviewed and interpreted this imaging study as follows: My Impression: 1 view chest x-ray was obtained in the emergency department. My interpretation is left-sided infiltrative process. Cardiomegaly, final report below Radiologist's Impression: Head CT 01/20/23 17:17 CT head/brain wo con CLINICAL HISTORY: weakness Technique: Contiguous axial CT images of the head were acquired from the base of the skull to the vertex without intravenous contrast administration. Images were viewed in brain, subdural and bone windows. Automated dose lowering techniques and/or adjustment according to patient size were utilized for this exam. Comparison: Comparison is made to CT head 04/21/2022 Findings: Areas of decreased attenuation are present in the periventricular and subcortical white matter bilaterally consistent with small vessel ischemic disease. Generalized cerebral atrophy with commensurate enlargement of the ventricles, sulci, and cisterns is also present. There is no acute intracranial hemorrhage or evidence of acute territorial infarction. No shift of the midline structures, mass effect, or extra-axial abnormalities are shown. Atherosclerotic calcifications are present in the intracranial segments of the internal carotid arteries. 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 Sinuses are normal. There is opacification of a few left ethmoid air cells, similar to prior exam. The orbits appear normal. There are no acute fractures of the calvaria or scalp swelling. Impression: No acute intracranial hemorrhage, no evidence of acute territorial infarction or other acute intracranial disease process. ACT 112: Negative or not required by law. Electronically signed by: Hugh Osborn M.D. 01/20/2023 6:36 PM Chest X-Ray 01/20/23 17:18 XR chest 1V portable CLINICAL HISTORY: weakness TECHNIQUE: Single frontal radiograph of the chest was obtained. Comparison: Comparison is made to chest radiograph 04/21/2022 FINDINGS: Median sternotomy wires are unchanged. Cardiomegaly is noted. The aortic arch is calcified. Prominence and cephalization of the vasculature is seen. No evidence of pleural effusion or pneumothorax. IMPRESSION: Cardiomegaly and mild pulmonary edema. ACT 112: Negative or not required by law. Electronically signed by: Hugh Osborn M.D. 01/20/2023 6:24 PM Discharge Plan Visit Data Chief Complaint: Weakness Stated Complaint: LOSS OF BALANCE, CHEST PAIN, WEAKNESS ED Provider: Sandip Schmidt Discharge Problem: Pneumonia, CASSANDRA (acute kidney injury), Weakness Patient Disposition: Being Evaluated by Hospitalist Forms Stand Alone Forms: [facility] Prescriptions Prescriptions: No Action aspirin 81 mg Tablet,Delayed Release (Dr/Ec) 81 mg PO QAM polyethylene glycol 3350 [Miralax] 17 gram/dose Powder 17 g PO DAILY PRN (Reason: Constipation) finasteride [Proscar] 5 mg tablet 5 mg PO QAM Centrum Silver Men 300-600-300 mcg Tablet 1 tab PO QAM Probiotic 3 billion cell Capsule 3,000 mmu cells PO 3XWK Rx Instructions: Saturday,Saturday,Saturday lisinopril 5 mg tablet 5 mg PO QAM metoprolol succinate 25 mg tablet extended release 24 hr 25 mg PO HS omeprazole magnesium [Prilosec OTC] 20 mg Tablet,Delayed Release (Dr/Ec) 40 mg PO QAM cholecalciferol (vitamin D3) 25 mcg (1,000 unit) Capsule 1,000 unit PO QAM tamsulosin 0.4 mg Capsule 0.4 mg PO HS ezetimibe 10 mg tablet 10 mg PO QAM isosorbide mononitrate 30 mg tablet extended release 24 hr 30 mg PO QAM nitroglycerin 0.4 mg tablet, sublingual 0.4 mg sublingual DIRECTED PRN (Reason: Chest Pain) Repatha SureClick 140 mg/mL pen injector 140 mg SUBCUT Q14D meclizine 25 mg tablet 25 mg PO TID PRN (Reason: dizziness) Qty: 21 0RF acetaminophen [Tylenol] 325 mg Tablet 650 mg PO HS famotidine 20 mg Tablet 20 mg PO HS cyanocobalamin (vitamin B-12) [Vitamin B-12] 500 mcg Tablet 500 mcg PO DAILY icosapent ethyl 1 gram capsule 2 g PO BIDM Referrals Referrals: Joe Lopez MD [Primary Care Provider] -
[2023-01-20 17:36] LABS: Basophils # (auto) 0.06 K/uL (0-0.2); Basophils % (auto) 0.3 %; Eosinophils # (auto) 0.08 K/uL (0-0.50); Eosinophils % (auto) 0.4 %; Hematocrit (blood only) 40.7 % (42.0-52.0); Hemoglobin 14.2 g/dl (14.0-18.0); Immature Granulocytes # (auto) 0.09 K/uL (0.01-0.20); Immature Granulocytes % (auto) 0.5 %; Lymphocytes # (auto) 1.78 K/uL (1.2-3.4); Lymphocytes % (auto) 9.1 %; Mean Corpuscular Hemoglobin 32.4 pg (25.0-34.0); Mean Corpuscular Hgb Conc 34.9 g/dL (32.0-36.0); Mean Corpuscular Volume 92.9 fL (80.0-100.0); Monocytes % (auto) 10.2 %; Neutrophils # (auto) 15.65 K/uL (1.40-6.50); Neutrophils % (auto) 79.5 %; Platelet Count 220 K/uL (130-400); RDW Coefficient of Variation 12.8 % (11.5-14.5); RDW Standard Deviation 43.8 fL (36.4-46.3); Red Blood Count 4.38 M/uL (4.70-6.10); White Blood Count 19.66 K/ul (4.8-10.8)
[2023-01-20 18:03] LABS: Alanine Aminotransferase 56 U/L (7-52); Albumin Globulin Ratio 1.4 (0.9-2); Albumin Level 4.1 gm/dl (3.4-5.0); Alkaline Phosphatase 74 U/L (34-104); Anion Gap 8 (3-11); Aspartate Aminotransferase 30 U/L (13-39); BUN Creatinine Ratio 10.6 (10-20); Bilirubin,Total 0.8 mg/dl (0.2-1.0); Blood Urea Nitrogen 20 mg/dl (6-23); Calcium 8.8 mg/dl (8.6-10.3); Carbon Dioxide 24 mmol/L (21-32); Chloride 102 mmol/L (98-107); Est GFR (African American) 39.3 ml/min; Est GFR (Non-African American) 33.9 ml/min; Glucose 132 mg/dl (70-99(Fasting)); Partial Thromboplastin Ratio 1.1; Potassium 3.9 mmol/L (3.5-5.1); Prothrombin Time 10.7 Seconds (9.0-12.0); Sodium 134 mmol/L (136-145); Total Protein 7.1 gm/dl (6.0-8.3)
[2023-01-20 18:10] LABS: Troponin I High Sensitivity 10.3 pg/ml (0-20)
[2023-01-20] MEDS ORDERED: cefTRIAXone SODIUM 2,000 MG/70 ML BAG IV STA (18:22)
[2023-01-20] MEDS ORDERED: SODIUM CHLORIDE 0.9% 1000ML 1,000 ML IV ONE (18:24)
[2023-01-20 18:26] LABS: D Dimer 740 ug/L FEU (0-500)
--- NOTE | 2023-01-20 18:26 | XRay Report ---
XR chest 1V portable CLINICAL HISTORY: weakness TECHNIQUE: Single frontal radiograph of the chest was obtained. Comparison: Comparison is made to chest radiograph 04/21/2022 FINDINGS: Median sternotomy wires are unchanged. Cardiomegaly is noted. The aortic arch is calcified. Prominenc e and cephalization of the vasculature is seen. No evidence of pleural effusion or pneumothorax. IMPRESSION: Cardiomegaly and mild pulmonary edema. ACT 112: Negative or not required by law. Electronically signed by: Hugh Osborn M.D. 01/20/2023 6:24 PM
--- NOTE | 2023-01-20 18:38 | CT Scan Report ---
CT head/brain wo con CLINICAL HISTORY: weakness Technique: Contiguous axial CT images of the head were acquired from the base of the skull to the ora javi without intravenous contrast administration. Images were viewed in brain, subdural and bone [facility]. Automated dose lowering techniques and/or adjustment according to patient size were utilized for this exam. Comparison: Comparison is made to CT head 04/21/2022 Findings: Areas of decreased attenuation are present in the periventricular and subcortical white matter bilate rally consistent with small vessel ischemic disease. Generalized cerebral atrophy with commensurate e nlargement of the ventricles, sulci, and cisterns is also present. There is no acute intracranial hem orrhage or evidence of acute territorial infarction. No shift of the midline structures, mass effect, or extra-axial abnormalities are shown. Atherosclerotic calcifications are present in the intracran ial segments of the internal carotid arteries. 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 Sinuses are normal. There is opacification of a few left ethmoid air cells, similar to prior exam. Th e orbits appear normal. There are no acute fractures of the calvaria or scalp swelling. Impression: No acute intracranial hemorrhage, no evidence of acute territorial infarction or other acute intracra nial disease process. ACT 112: Negative or not required by law. Electronically signed by: Hugh Osbron M.D. 01/20/2023 6:36 PM
[2023-01-20 19:34] LABS: Influenza A virus by PCR Negative (Neg); Influenza B virus by PCR Negative (Neg); RSV by PCR Negative (Neg); SARS CoV2 RNA(COVID-19) Ceph NEGATIVE (Negative)
[2023-01-20 19:48] LABS: Appearance Urine Clear (Clear); Bacteria Urine Automated Negative (Negative); Bilirubin Urine Negative (Negative); Blood Urine Negative (Negative); Cast Urine Automated 0 /lpf (0-5); Color Urine Yellow; Glucose Urine UA Negative (Negative); Ketones Urine Negative (Negative); Leukocyte Esterase Urine 1+ (Negative); Nitrite Urine Negative (Negative); Protein Urine Negative (Negative); RBC Urine Automated 0-4 /hpf (0-4); Specific Gravity Urine 1.014 (1.000-1.030); Urobilinogen Urine Negative (Negative); pH Urine 5.5 (4.5-7.5)
[2023-01-20] MEDS ORDERED: FUROSEMIDE 40 MG/4 ML VIAL IV STA (20:02)
--- NOTE | 2023-01-20 21:43 | CT Scan Report ---
Exam(s): CT CHEST Without Contrast EXAM: CT Chest Without Intravenous Contrast CLINICAL HISTORY: Reason for exam: pul. congestion, underlying pneumonia, elevated wb. TECHNIQUE: Axial computed tomography images of the chest without intravenous contrast. CTDI is 22.48 mGy and DLP is 744.36 mGy-cm. Automated exposure control was utilized for the study. A dose lowering technique was utilized adhering to the principles of ALARA. COMPARISON: No relevant prior studies available. FINDINGS: Lungs: Mild interstitial thickening. No consolidation or edema. Pleural space: No pneumothorax. No effusion. Heart: Cardiomegaly. Mediastinum: Small hiatal hernia. Bones/joints: Sternotomy. Soft tissues: Unremarkable. Vasculature: Unremarkable. No thoracic aortic aneurysm. Lymph nodes: No enlarged lymph nodes. Liver: Hepatic cysts. IMPRESSION: No acute findings in the chest. Electronically signed by: Lukas Lantigua M.D. 01/20/23 21:42 PM
[2023-01-20] MEDS ORDERED: POLYETHYLENE (MIRALAX) 17 GM PACK PO PRN ×2 (21:55)
[2023-01-20] MEDS ORDERED: NITROGLYCERIN SL 0.4 MG/TAB TAB SL PRN ×2 (21:55)
[2023-01-20] MEDS ORDERED: MECLIZINE HCL 25 MG TAB PO PRN (21:55)
[2023-01-20] MEDS ORDERED: ACETAMINOPHEN 325 MG TAB PO PRN (21:55)
[2023-01-20] MEDS: METOPROLOL SUCC 25MG EXT REL TAB PO SCH (22:42)
[2023-01-20] MEDS: HEPARIN SOD 5,000 UNIT/0.5 ML VIAL SQ SCH (22:42)
[2023-01-20] MEDS: ACETAMINOPHEN 325 MG TAB PO SCH (22:43)
[2023-01-20] MEDS: TAMSULOSIN HCL 0.4 MG CAP PO SCH (22:43)
[2023-01-20] MEDS: FAMOTIDINE 20 MG TAB PO SCH (22:43)
[2023-01-20] MEDS: DOXYCYCLINE HYCLATE 100 MG in DEXTROSE 5% 100 ML IV SCH (22:47)
--- NOTE | 2023-01-21 00:56 | History and Physical Report ---
DATE OF ADMISSION: 01/20/2023. CHIEF COMPLAINT: Shortness of breath and weakness. HISTORY OF PRESENT ILLNESS: This is a 77-year-old male with past medical history significant for CAD, status post CABG, status post aortic root repair for dilated ascending aorta 08/2019, postoperative paroxysmal atrial fibrillation, history of hypertension, obstructive sleep apnea, on CPAP, chronic kidney disease stage III, prediabetes, hyperlipidemia, hypertension, obesity, chronic constipation, irritable bowel syndrome, BPH, statin intolerance, presents with shortness of breath and weakness since yesterday. Yesterday, he was feeling room spinning and he slept whole day and his neighbor who is in the medical field asked him to come to the ER. That is why he came in, he was also feeling short of breath and legs were feeling weak, has occasional dry cough. No fevers. He has some chest discomfort. No nausea, no abdominal pain. Appetite is okay. No difficulty swallowing. No headache, no blurred visions. Has some runny nose, some sore throat. No earaches. Currently, resting comfortably, hemodynamically stable, saturating okay on room air and recently saw cardiology and prescribed hydrochlorothiazide 2 times a week, but the patient has not started taking that medication yet. ALLERGIES: MORPHINE, SULFA ANTIBIOTICS. PAST MEDICAL HISTORY: As mentioned above. PAST SURGICAL HISTORY: CABG, ascending aorta repair, carpal tunnel surgery, colonoscopy, EGDs, laparoscopic cholecystectomy, left shoulder repair. MEDICATIONS: The patient is on Tylenol 650 mg p.o. at bedtime, aspirin 81 mg p.o. a.m., Centrum Silver 1 tablet p.o. a.m., vitamin D 1000 International Units p.o. a.m., vitamin B12 500 mcg p.o. daily, Repatha 140 mg subcutaneous q. 14 days, ezetimibe 10 mg p.o. a.m., famotidine 20 mg p.o. at bedtime, Proscar 5 mg p.o. a.m., icosapent ethyl 2 g p.o. b.i.d., isosorbide mononitrate 30 mg p.o. daily, lisinopril 5 mg p.o. daily, meclizine 25 mg p.o. t.i.d. p.r.n., metoprolol succinate 25 mg p.o. at bedtime, nitroglycerin 0.4 sublingual p.r.n., omeprazole 40 mg p.o. a.m., MiraLax 17 g p.o. daily p.r.n., probiotic 3 times a week, Flomax 0.4 mg p.o. at bedtime. FAMILY HISTORY: Significant for mother has breast cancer, heart disease and father has heart disease. SOCIAL HISTORY: , lives with . Quit smoking in 1978, smoked 1 pack a day for 25 years. No alcohol use. No drug use. REVIEW OF SYSTEMS: As per HPI. Rest of review of systems is negative. PHYSICAL EXAMINATION: GENERAL: The patient is obese, not in acute distress. VITAL SIGNS: Temperature 37.1, pulse 83, respiratory rate 22, blood pressure 131/66, oxygen 94% on room air. HEENT: Pupils equal, round and reactive to light. Oral mucosa moist. NECK: No JVD, no neck masses. CARDIOVASCULAR: S1 and S2 heard. Regular rate and rhythm. No murmur, no gallop. RESPIRATORY SYSTEM: Normal AP diameter. No accessory muscle use. Mild diminished breath sounds. No obvious wheezing or crackles heard. ABDOMEN: Soft, bowel sounds present, nontender, no distention. CENTRAL NERVOUS SYSTEM: Alert and oriented. Speech is clear. No facial droop. Obeys simple commands. Insight is okay. Moves extremities. EXTREMITIES: No edema, no erythema seen. LABORATORY DATA: WBC 19.6, hemoglobin 14.2, hematocrit 40.7, platelets 220. PT 10.7, INR 1, APTT 29. D-dimer 740. Sodium 134, potassium 3.9, chloride 102, CO2 24, BUN 20, creatinine 1.8, serum glucose 132, lactate 1.3, calcium 8.8, magnesium 2, total bilirubin 0.8, AST 30, ALT 56, alkaline phosphatase 74. Troponin I high sensitivity 10.3. BNP 68. TSH 0.9. Urinalysis, +1 leukocyte esterase, bacteria is negative. SARS-CoV-2 PCR negative. Influenza A and B PCR negative. RSV PCR negative. IMAGING DATA: Chest x-ray: Cardiomegaly with mild pulmonary edema. CT of the head, no acute findings. EKG: Normal sinus rhythm, rate of 87, incomplete right bundle-branch block at rate of 87, nonspecific ST abnormalities. ASSESSMENT AND PLAN: This is a 77-year-old male, presents with some vertigo and shortness of breath. 1. Shortness of breath, possibly acute congestive heart failure. Has some pulmonary edema on chest x-ray. Also, there is leukocytosis. We will get CT chest to rule out underlying pneumonia. Empirically starting on Rocephin and doxycycline and also will gave a dose of IV Lasix. We will monitor in tele floor, get echocardiogram and consult cardiology in the a.m. for further recommendations. If no obvious pneumonia, we can stop the antibiotics.Will follow cultures and labs. 2. Vertigo. The patient seems to have meclizine at home, which will be continued. CT of the head is okay. The patient says he recently had a colonoscopy, which he was clipped and thinks they cannot get MRI and he does not want MRI of the head currently. He still has mild vertigo, No nystagmus on exam.meclizine will be continued and we will monitor. Reviewing the [facility] chart, he had a colonoscopy on 01/01/2023 with one 6 mm sessile polyp in the cecum, was resected and 1 hemostatic clip was successfully placed. If the vertigo does not improve, we will consult neurology. 3. Mild elevation of D-dimer. Currently could not do a CTA chest because of creatinine and we will do a lower extremity Doppler, but the patient saturating okay on room air currently and will follow the echocardiogram results.If any concern will get v/q scan. 4. History of coronary artery disease, status post coronary artery bypass graft and status post aortic root repair of dilated ascending aorta in 08/2019. On aspirin, ezetimibe, Repatha, Imdur, metoprolol succinate. We will follow the echocardiogram. 5. History of hypertension. On metoprolol succinate, lisinopril, Imdur. We will monitor the blood pressure. 6. Benign prostatic hyperplasia. On Proscar and Flomax. Monitor for any urinary retention. 7. Gastroesophageal reflux disease. On omeprazole. 8. Chronic kidney disease stage III. Presently creatinine of 1.8, seems to close to baseline. We will continue Lasix. We will follow the repeat labs. 9. Diabetes. We will follow HbA1c levels. 10. Obstructive sleep apnea. On CPAP at home, but the patient says he does not want to use the hospital machine and wants to use the oxygen in the hospital, but on persuading the patient, said his will get his machine from home tomorrow and he will use oxygen tonight. 11. History of postoperative atrial fibrillation. Rate controlled with metoprolol. Seems ;postopeative Does not seem to be on any anticoagulation currently. 12. Possible UTI. Will follow cultures. 13. Deep venous thrombosis prophylaxis. We will place on heparin subcutaneous. DISPOSITION: Closely monitor in the tele floor. Level 1 full code as per discussion with the patient. PT, OT prior to discharge. Social service to help with discharge planning. Job ID: [id number] MTDD
[2023-01-21 06:08] LABS: Basophils # (auto) 0.06 K/uL (0-0.2); Basophils % (auto) 0.3 %; Eosinophils # (auto) 0.03 K/uL (0-0.50); Eosinophils % (auto) 0.1 %; Hematocrit (blood only) 43.7 % (42.0-52.0); Hemoglobin 15.2 g/dl (14.0-18.0); Immature Granulocytes % (auto) 0.5 %; Lymphocytes # (auto) 2.22 K/uL (1.2-3.4); Mean Corpuscular Hemoglobin 32.7 pg (25.0-34.0); Mean Corpuscular Hgb Conc 34.8 g/dL (32.0-36.0); Mean Platelet Volume 8.9 fL (9.4-12.4); Monocytes # (auto) 1.72 K/uL (0.11-0.59); Monocytes % (auto) 8.5 %; Neutrophils # (auto) 16.05 K/uL (1.40-6.50); Neutrophils % (auto) 79.6 %; Platelet Count 235 K/uL (130-400); RDW Standard Deviation 44.2 fL (36.4-46.3); Red Blood Count 4.65 M/uL (4.70-6.10); White Blood Count 20.18 K/ul (4.8-10.8)
[2023-01-21] MEDS: HEPARIN SOD 5,000 UNIT/0.5 ML VIAL SQ SCH ×3 (06:14→21:19)
[2023-01-21 06:29] LABS: BUN Creatinine Ratio 10.7 (10-20); Calcium 9.1 mg/dl (8.6-10.3); Creatinine Clr Calc Pharmacy 36.6 ml/min; Est GFR (African American) 37.2 ml/min; Est GFR (Non-African American) 32.1 ml/min; Magnesium 1.9 mg/dl (1.7-2.4); Potassium 4.2 mmol/L (3.5-5.1)
[2023-01-21] MEDS ORDERED: ONDANSETRON INJ 2 MG/ML 2 ML VIAL IV PRN (07:36)
--- NOTE | 2023-01-21 08:41 | Cardiology Consultation ---
Date of Consultation January 21, 2023 Assessment & Plan (1) Shortness of breath: (2) CASSANDRA (acute kidney injury): (3) Weakness: (4) JEFFERSON (obstructive sleep apnea): (5) History of hypertension: (6) Hx of CABG: (7) History of aortic root repair: (8) BPPV (benign paroxysmal positional vertigo): (9) Right heart failure: Plan The patient admits shortness of breath is chronic without any significant recent deterioration He does not examine his volume overloaded BNP unremarkable no volume overload on CT of chest No acute volume overload Chronic right-sided heart failure likely due to obesity hypoventilation, weight loss recommended dizziness consistent with BPPV, recommend PT eval, patient states he does not believe in physical therapy? No further cardiac test intervention is necessary at this time Okay to transfer off telemetry or DC to home from cardiac standpoint History of Present Illness Reason for Consultation: SOB Requesting Physician: HANSA Attending Physician: Brennon Silverio MD History of Present Illness Mr. Dick is a 77-year-old gentleman who presented to [facility] on 01/21/2023 with complaints of vertigo and shortness of breath. He states that shortness of breath is nothing new and been going on for some time now. He is also been having dull substernal chest pressure for several years. On the day of presentation the patient had a severe episode of vertigo that resulted in severe dizziness. He was then encouraged to come to the hospital by his neighbor. Upon arrival emergency department his initial ischemic work-up was unremarkable as was his chest x-ray and BNP. PMHX as per most recent cardiology visit: 1. Postoperative retrocardiac/pericardial hematoma identified on echocardiogram, but improved on repeat CT scan. 2. Status post coronary bypass grafting x 3 , EASON to LAD saphenous vein graft OM saphenous vein graft to PDA for multivessel coronary disease and 34mm gelweave aortic root repair for a dilated ascending aorta August 31, 2019 3. Postoperative paroxysmal atrial fibrillation on anticoagulation with warfarin 4. Hypertension 5. Obstructive sleep apnea on CPAP 6. CKD , stage III, proteinuria Allergies Allergy/AdvReac Type Severity Reaction Status Date / Time morphine AdvReac Intermediate Hypotension, Verified 01/20/23 18:36 "MAKES ME MEAN" Sulfa (Sulfonamide AdvReac Intermediate NAUSEA, Verified 01/20/23 18:36 Antibiotics) FATIGUE Home Medications Medication Instructions Recorded Confirmed Type aspirin 81 mg tablet,delayed 81 mg PO QAM 08/16/19 01/20/23 History release finasteride 5 mg tablet (Proscar) 5 mg PO QAM 08/16/19 01/20/23 History lactobacillus combination no.4 3 3,000 mmu cells PO 3XWK 08/16/19 01/20/23 History billion cell capsule (Probiotic) whwedkgu-bxz-wngdy acid 300 1 tab PO QAM 08/16/19 01/20/23 History mcg-lycopene 600 mcg-lutein 300 mcg tablet (Centrum Silver Men) polyethylene glycol 3350 17 17 g PO DAILY PRN Constipation 08/16/19 01/20/23 History gram/dose oral powder (Miralax) cholecalciferol (vitamin D3) 25 1,000 unit PO QAM 06/19/20 01/20/23 History mcg (1,000 unit) capsule lisinopril 5 mg tablet 5 mg PO QAM 06/19/20 01/20/23 History metoprolol succinate 25 mg 25 mg PO HS 06/19/20 01/20/23 History tablet,extended release 24 hr omeprazole magnesium 20 mg 40 mg PO QAM 06/19/20 01/20/23 History tablet,delayed release (Prilosec OTC) tamsulosin 0.4 mg capsule 0.4 mg PO HS 03/23/21 01/20/23 History ezetimibe 10 mg tablet 10 mg PO QAM 08/13/21 01/20/23 History evolocumab 140 mg/mL subcutaneous 140 mg subcut Q14D 03/07/22 01/20/23 History pen injector (Repatha SureAlyick) isosorbide mononitrate 30 mg 30 mg PO QAM 03/07/22 01/20/23 History tablet,extended release 24 hr nitroglycerin 0.4 mg sublingual 0.4 mg sublingual DIRECTED PRN 03/07/22 01/20/23 History tablet Chest Pain meclizine 25 mg tablet 25 mg PO TID PRN dizziness #21 tabs 04/21/22 01/20/23 Rx acetaminophen 325 mg tablet 650 mg PO HS 01/20/23 01/20/23 History (Tylenol) cyanocobalamin (vitamin B-12) 500 500 mcg PO DAILY 01/20/23 01/20/23 History mcg tablet (Vitamin B-12) famotidine 20 mg tablet 20 mg PO HS 01/20/23 01/20/23 History icosapent ethyl 1 gram capsule 2 g PO BIDM 01/20/23 01/20/23 History Patient History Medical History Aneurysm, ascending aorta HX OF - 4.5 cm per [facility] echo 08/11/19...SURGICALLY REPAIRED Benign prostatic hyperplasia CAD (coronary artery disease) Dyslipidemia Esophageal dysmotility (02/23/12) PT DENIES , DENIES TROUBLE SWALLOWING GERD (gastroesophageal reflux disease) Hypertension Obesity JEFFERSON (obstructive sleep apnea) CPAP SOB (shortness of breath) on exertion PT HX INHALER - REPORTS WAS UNABLE TO AFFORD AND INHALER D/C'D...CPAP USE...PT REPORTS THINKS SOB MAY BE RELATED TO AMOUNT OF BLOOD PRESSURE MEDICINE HE TAKES AND PLANS TO DISCUSS WITH Surgical History History of cataract surgery RT History of colonoscopy History of removal of cyst BEHIND EAR History of shoulder surgery Hx laparoscopic cholecystectomy (08/14/21) Laparoscopic Cholecystectomy Dr. Daniels 08/14/21 S/P ascending aortic aneurysm repair Aug 2019 in [place] (TRIPLE BYPASS AND ANEURYSM REPAIR 1 SURGICAL PROCEDURE) S/P CABG (coronary artery bypass graft) Aug 2019 in [place] (TRIPLE BYPASS AND ANEURYSM REPAIR 1 SURGICAL PROCEDURE) Family History Mother Heart disease Breast cancer Father Heart disease Social History Smoking Status: Former smoker Second Hand Exposure: No; Do You Dip or Chew Tobacco: No (Pass use); Tobacco Cessation Education Requested by Patient: No Hx Alcohol Use: No Hx Substance Use: No Preferred Language: Honduran Communication Ability: Effective It Disaster Recovery Manager Required: No Beliefs That Will Affect Care: None marital status: Current Living Situation: Spouse and Other Current Living Situation Comment: Grandson - 17 y/o current occupational status: retired current occupation: Retired Other Information That Helps Us Care for You: No Feels Safe at Home: Yes Safety Concerns: Feels Safe At This Time Assistive Devices: Cane, CPAP and Walker Review of Systems Review of Systems: All systems reviewed & are unremarkable except as noted in HPI & below Physical Exam Physical Exam: General: Awake, alert and oriented x 3. No acute distress. HEENT: Normocephalic, atraumatic. Pupils equal, round and reactive to light and accommodation. Extraocular muscles are intact. Anicteric sclera. Moist mucous membranes. Neck: No JVD. No bruit. Cardiovascular: Regular. Positive S-4. Normal S-1 and S-2. No S-3. 3/6 holosystolic ejection murmur, 5th intercostal space, mid-clavicular line without radiation. No rubs. Pulmonary: Clear to auscultation bilaterally. No rales, rhonchi, or wheezing. Abdomen: Bowel sounds x 4, soft. No rebound, guarding or tenderness. No o rganomegaly. Extremities: No clubbing, cyanosis or edema. +2 pedal pulses bilaterally. Skin: Warm and dry. Results & Data Vital Signs (Past 12 Hours) Vital Signs Temp Pulse Pulse Resp BP Pulse Ox O2 Del Method 01/21/23 07:54 Room Air 01/21/23 07:44 37.1 C 83 18 133/79 95 Room Air 01/21/23 03:52 37.1 C 83 19 121/78 96 Nasal Cannula 01/20/23 23:00 107 H 01/20/23 22:30 112 H 01/20/23 21:55 01/20/23 21:57 Room Air 01/20/23 21:57 37.7 C H 111 H 20 142/82 H 95 Room Air 01/20/23 21:11 119 H O2 Del Method O2 Flow Rate 01/21/23 07:54 01/21/23 07:44 01/21/23 03:52 2 01/20/23 23:00 01/20/23 22:30 01/20/23 21:55 Room Air 01/20/23 21:57 01/20/23 21:57 01/20/23 21:11
[2023-01-21] MEDS ORDERED: ADVANCED PROBIOTIC 1250 MG CAPSULE PO SCH (09:00)
[2023-01-21] MEDS: CEROVITE ADV FORMULA TAB PO SCH (09:12)
[2023-01-21] MEDS: PANTOprazole 40 MG TAB PO SCH (09:13)
[2023-01-21] MEDS: ISOSORBIDE MONO EXTENDED REL 30 MG TABCR PO SCH (09:13)
[2023-01-21] MEDS: CYANOCOBALAMIN (B-12) 500 MCG TABLET PO SCH (09:13)
[2023-01-21] MEDS: EZETIMIBE 10 MG TABLET PO SCH (09:13)
[2023-01-21] MEDS: ASPIRIN 81 MG ECTAB PO SCH (09:13)
[2023-01-21] MEDS: lisinopril 5 MG TAB PO SCH (09:14)
[2023-01-21] MEDS: CHOLECALCIFEROL 1,000 UNITS 25 MCG TAB PO SCH (09:14)
[2023-01-21] MEDS: FINASTERIDE 5 MG TAB PO SCH (09:14)
[2023-01-21] MEDS: DOXYCYCLINE HYCLATE 100 MG in DEXTROSE 5% 100 ML IV SCH ×2 (09:58→21:18)
--- NOTE | 2023-01-21 10:06 | Ultrasound Report ---
BILATERAL LOWER EXTREMITY VENOUS DOPPLER HISTORY: Shortness of breath. elevated dimer. dvt? COMPARISON STUDY: None. FINDINGS: There is normal compressibility, flow, and augmentation within the bilateral lower extremit y deep venous systems. IMPRESSION: No DVT within the right or left lower extremity. ACT 112: Negative or not required by law. Electronically signed by: Clemente Jaramillo M.D. 01/21/2023 10:04 AM
[2023-01-21 10:48] LABS: Estimated Average Glucose 128 mg/dl; Hemoglobin A1C 6.1 % (4.5-5.6)
--- NOTE | 2023-01-21 15:00 | Electrocardiogram Report ---
Test Reason : Blood Pressure : / mmHG Vent. Rate : 087 BPM Atrial Rate : 087 BPM P-R Int : 158 ms QRS Dur : 094 ms QT Int : 368 ms P-R-T Axes : 056 -45 101 degrees QTc Int : 442 ms Normal sinus rhythm Incomplete right bundle branch block Left anterior fascicular block Minimal voltage criteria for LVH, may be normal variant Possible Anterior infarct (cited on or before 07-MAR-2022) Abnormal ECG When compared with ECG of 21-APR-2022 09:52, Vent. rate has increased BY 30 BPM Incomplete right bundle branch block is now Present Confirmed by Sandip Gil ([id number]) on 01/21/2023 3:00:08 PM Referred By: REFERRED SELF Confirmed By:Sandip Gil
--- NOTE | 2023-01-21 16:46 | Hospitalist Progress Note ---
Date of Service January 21, 2023 Assessment & Plan (1) Shortness of breath: Plan: Patient is a 77 yr male, presents with some vertigo and shortness of breath. Dizziness/Vertigo ? Presyncope, BPPV --CT Head:No acute intracranial hemorrhage, no evidence of acute territorial infarction or other acute intracranial disease process. --Check Orthostatics --Monitor on Tele PT for Rakesh Meclizine PRN Chronic dyspnea Possibly Multi Factorial:JEFFERSON, CAD, Obesity, P.Afib, ? diastolic dysfunction Elevated D dimer --Chest CT with out contrast:No acute findings in the chest --Venous Doppler:No DVT within the right or left lower extremity. --ECHO: Normal LV chamber size and mild concentric LVH. Normal LV systolic function, EF 55 to 60%. No segmental left ventricle wall motion abnormalities noted. Grade 1 diastolic dysfunction. Right ventricle is not well visualized. Right ventricle systolic function is reduced as assessed by tricuspid annular plane systolic excursion. Poor visualization of valvular structures without significant stenosis or regurgitation by Doppler. H/O JEFFERSON Currently asymptomatic at rest Appreciate cardiology input Saturating well on room air Chronic leukocytosis Unclear source of infection Blood cultures pending Urine culture: Probable Enterococcus--50,000 colonies Empirically on Rocephin, doxycycline Check procalcitonin Patient denies UTI symptoms Check peripheral smear H/O Colonic Polyps S/P colonoscopy on 01/01/2023 with one 6 mm sessile polyp in the cecum S/P resection and 1 hemostatic clip placement CAD S/P CABG, S/P Aortic root repair of dilated ascending aorta in 08/2019 Continue Aspirin, ezetimibe, Repatha, Imdur, metoprolol succinate Hypertension Continue metoprolol succinate, lisinopril, Imdur BPH On Proscar and Flomax GERD Continue PPI CKD III Baseline Cr ~1.8 Monitor renal function Avoid nephrotoxic agents as able DM II HbA1C: 6.1 Diet controlled JEFFERSON Continue CPAP HS P. Afib post operatively Continue metoprolol Currently not on anticoagulation DVT Px: Heparin SQ CODE STATUS Full code Disposition PT OT prior to discharge Admission and Anticipated Discharge Date Admission Date: January 20, 2023 Subjective Patient is seen and examined at bedside Feels much better today Shortness of breath, dizziness, chest pain resolved Denies any nausea, vomiting, abdominal pain Afebrile today Saturating well on room air Review of Systems Review of Systems: All systems reviewed & are unremarkable except as noted in Subjective Physical Exam Physical Exam: Physical Exam: Vitals signs as noted above General Appearance:Obese, no apparent distress Head: normocephalic, Atraumatic Eyes: normal inspection, EOMI Neck: supple, Trachea midline Respiratory/Chest: Normal breath sounds, CTA, No accessory muscle use Cardiovascular: S1, S2, No murmur Abdomen/GI:Soft, Non tender, Bowel sounds present Extremities/Musculoskeletal:normal inspection, no edema Neurologic/Psych:AAOX3, grossly no focal neurological deficits Skin: normal color, warm Results & Data Results & Data Vital Signs (Past 12 Hours) Vital Signs Temp Pulse Resp BP Pulse Ox O2 Del Method 01/21/23 15:51 36.8 C 97 H 18 106/66 94 Room Air 01/21/23 11:23 36.9 C 90 18 104/56 L 94 Room Air 01/21/23 07:54 Room Air 01/21/23 07:44 37.1 C 83 18 133/79 95 Room Air Laboratory Results Short CBC 01/20/23 01/21/23 Range/Units 17:20 05:47 WBC 19.66 H 20.18 H (4.8-10.8) K/ul Hgb 14.2 15.2 (14.0-18.0) g/dl Hct 40.7 L 43.7 (42.0-52.0) % Plt Count 220 235 (130-400) K/uL BMP 01/20/23 01/21/23 17:20 05:47 Sodium 134 L 135 L Potassium 3.9 4.2 Chloride 102 100 Carbon Dioxide 24 24 BUN 20 21 Creatinine 1.88 H 1.97 H Glucose 132 H 133 H Calcium 8.8 9.1 Liver Function 01/20/23 Range/Units 17:20 Total Bilirubin 0.8 (0.2-1.0) mg/dl AST 30 (13-39) U/L ALT 56 H (7-52) U/L Alkaline Phosphatase 74 (34-104) U/L Albumin 4.1 (3.4-5.0) gm/dl Urine 01/20/23 Range/Units 19:27 Urine Color Yellow Urine Appearance Clear (Clear) Urine pH 5.5 (4.5-7.5) Ur Specific [place] 1.014 (1.000-1.030) Urine Protein Negative (Negative) Urine Glucose (UA) Negative (Negative)
[2023-01-21] MEDS: ICOSAPENT ETHYL 1 GM PO SCH (17:51)
[2023-01-21] MEDS ORDERED: cefTRIAXone SODIUM 2,000 MG in DEXTROSE 5% 50 ML IV SCH (18:00)
[2023-01-21] MEDS: TAMSULOSIN HCL 0.4 MG CAP PO SCH (21:20)
[2023-01-21] MEDS: ACETAMINOPHEN 325 MG TAB PO SCH (21:21)
[2023-01-21] MEDS: FAMOTIDINE 20 MG TAB PO SCH (21:21)
[2023-01-21] MEDS: METOPROLOL SUCC 25MG EXT REL TAB PO SCH (21:22)
[2023-01-22] MEDS: HEPARIN SOD 5,000 UNIT/0.5 ML VIAL SQ SCH (06:04)
[2023-01-22 08:09] LABS: Basophils # (auto) 0.05 K/uL (0-0.2); Basophils % (auto) 0.4 %; Eosinophils # (auto) 0.16 K/uL (0-0.50); Eosinophils % (auto) 1.3 %; Hematocrit (blood only) 40.4 % (42.0-52.0); Hemoglobin 13.9 g/dl (14.0-18.0); Immature Granulocytes # (auto) 0.08 K/uL (0.01-0.20); Immature Granulocytes % (auto) 0.6 %; Lymphocytes # (auto) 2.04 K/uL (1.2-3.4); Mean Corpuscular Hemoglobin 32.6 pg (25.0-34.0); Mean Corpuscular Hgb Conc 34.4 g/dL (32.0-36.0); Mean Corpuscular Volume 94.6 fL (80.0-100.0); Mean Platelet Volume 9.1 fL (9.4-12.4); Monocytes # (auto) 1.22 K/uL (0.11-0.59); Monocytes % (auto) 9.6 %; Neutrophils % (auto) 72.1 %; Platelet Count 212 K/uL (130-400); RDW Coefficient of Variation 13.2 % (11.5-14.5); RDW Standard Deviation 45.7 fL (36.4-46.3); Red Blood Count 4.27 M/uL (4.70-6.10); White Blood Count 12.75 K/ul (4.8-10.8)
[2023-01-22] MEDS: ICOSAPENT ETHYL 1 GM PO SCH (08:30)
[2023-01-22] MEDS: ASPIRIN 81 MG ECTAB PO SCH (08:30)
[2023-01-22] MEDS: PANTOprazole 40 MG TAB PO SCH (08:30)
[2023-01-22] MEDS: EZETIMIBE 10 MG TABLET PO SCH (08:30)
[2023-01-22] MEDS: CEROVITE ADV FORMULA TAB PO SCH (08:30)
[2023-01-22] MEDS: ISOSORBIDE MONO EXTENDED REL 30 MG TABCR PO SCH (08:30)
[2023-01-22] MEDS: CYANOCOBALAMIN (B-12) 500 MCG TABLET PO SCH (08:30)
[2023-01-22] MEDS: lisinopril 5 MG TAB PO SCH (08:31)
[2023-01-22] MEDS: CHOLECALCIFEROL 1,000 UNITS 25 MCG TAB PO SCH (08:31)
[2023-01-22] MEDS: FINASTERIDE 5 MG TAB PO SCH (08:31)
[2023-01-22 08:40] LABS: BUN Creatinine Ratio 12.7 (10-20); Calcium 8.9 mg/dl (8.6-10.3); Creatinine Clr Calc Pharmacy 31.3 ml/min; Est GFR (Non-African American) 26.7 ml/min; Potassium 3.9 mmol/L (3.5-5.1)
[2023-01-22] MEDS: DOXYCYCLINE HYCLATE 100 MG in DEXTROSE 5% 100 ML IV SCH (09:56)
--- NOTE | 2023-01-22 13:33 | Hospitalist Progress Note ---
Date of Service January 22, 2023 Assessment & Plan (1) Shortness of breath: Plan: Patient is a 77 yr male, presents with some vertigo and shortness of breath. Dizziness/Vertigo ? Presyncope, BPPV --CT Head:No acute intracranial hemorrhage, no evidence of acute territorial infarction or other acute intracranial disease process. --Monitor on Tele PT for Rakesh--Refused PT Meclizine PRN Resolved Chronic dyspnea Possibly Multi Factorial:JEFFERSON, CAD, Obesity, P.Afib, ? diastolic dysfunction Elevated D dimer --Chest CT with out contrast:No acute findings in the chest --Venous Doppler:No DVT within the right or left lower extremity. --ECHO: Normal LV chamber size and mild concentric LVH. Normal LV systolic function, EF 55 to 60%. No segmental left ventricle wall motion abnormalities noted. Grade 1 diastolic dysfunction. Right ventricle is not well visualized. Right ventricle systolic function is reduced as assessed by tricuspid annular plane systolic excursion. Poor visualization of valvular structures without significant stenosis or regurgitation by Doppler. H/O JEFFERSON Currently asymptomatic Appreciate cardiology input Saturating well on room air UTI-POA Blood cultures: No growth to date Urine culture: Enterococcus Empirically on Rocephin, doxycycline>>Transition to PO abx upon discharge H/O Colonic Polyps S/P colonoscopy on 01/01/2023 with one 6 mm sessile polyp in the cecum S/P resection and 1 hemostatic clip placement CAD S/P CABG, S/P Aortic root repair of dilated ascending aorta in 08/2019 Continue Aspirin, ezetimibe, Repatha, Imdur, metoprolol succinate Hypertension Continue metoprolol succinate, lisinopril, Imdur BPH On Proscar and Flomax GERD Continue PPI CKD III Baseline Cr ~1.8 Monitor renal function Avoid nephrotoxic agents as able DM II HbA1C: 6.1 Diet controlled JEFFERSON Continue CPAP HS P. Afib post operatively Continue metoprolol Currently not on anticoagulation DVT Px: Heparin SQ CODE STATUS Full code Disposition Home Admission and Anticipated Discharge Date Admission Date: January 20, 2023 Subjective Patient is seen and examined at bedside Feels well Offers no complaints Eager to get discharged Denies any chest pain, shortness of breath, dizziness, nausea, abdominal pain, cough Afebrile Leukocytosis trending down No other complaints Review of Systems Review of Systems: All systems reviewed & are unremarkable except as noted in Subjective Physical Exam Physical Exam: Physical Exam: Vitals signs as noted above General Appearance:Obese, no apparent distress Head: normocephalic, Atraumatic Eyes: normal inspection, EOMI Neck: supple, Trachea midline Respiratory/Chest: Normal breath sounds, CTA, No accessory muscle use Cardiovascular: S1, S2, No murmur Abdomen/GI:Soft, Non tender, Bowel sounds present Extremities/Musculoskeletal:normal inspection, no edema Neurologic/Psych:AAOX3, grossly no focal neurological deficits Skin: normal color, warm Results & Data Results & Data Vital Signs (Past 12 Hours) Vital Signs Temp Pulse Pulse Resp BP Pulse Ox O2 Del Method 01/22/23 12:40 70 01/22/23 12:00 36.9 C 102 H 16 137/74 94 Room Air 01/22/23 08:00 37.0 C 100 H 18 114/69 97 Room Air 01/22/23 03:26 37.1 C 84 18 102/63 94 Room Air Laboratory Results Short CBC 01/22/23 Range/Units 07:29 WBC 12.75 H (4.8-10.8) K/ul Hgb 13.9 L (14.0-18.0) g/dl Hct 40.4 L (42.0-52.0) % Plt Count 212 (130-400) K/uL BMP 01/22/23 07:29 Sodium 134 L Potassium 3.9 Chloride 100 Carbon Dioxide 24 BUN 29 H Creatinine 2.29 H D Glucose 100 H Calcium 8.9
[2023-01-22] MEDS ORDERED: CIPROFLOXACIN 250 MG TAB PO SCH (13:45)
--- NOTE | 2023-01-22 13:59 | Discharge Summary ---
Date of Service January 22, 2023 Admission HPI Per Admitting Provider CHIEF COMPLAINT: Shortness of breath and weakness. HISTORY OF PRESENT ILLNESS: This is a 77-year-old male with past medical history significant for CAD, status post CABG, status post aortic root repair for dilated ascending aorta 08/2019, postoperative paroxysmal atrial fibrillation, history of hypertension, obstructive sleep apnea, on CPAP, chronic kidney disease stage III, prediabetes, hyperlipidemia, hypertension, obesity, chronic constipation, irritable bowel syndrome, BPH, statin intolerance, presents with shortness of breath and weakness since yesterday. Yesterday, he was feeling room spinning and he slept whole day and his neighbor who is in the medical field asked him to come to the ER. That is why he came in, he was also feeling short of breath and legs were feeling weak, has occasional dry cough. No fevers. He has some chest discomfort. No nausea, no abdominal pain. Appetite is okay. No difficulty swallowing. No headache, no blurred visions. Has some runny nose, some sore throat. No earaches. Currently, resting comfortably, hemodynamically stable, saturating okay on room air and recently saw cardiology and prescribed hydrochlorothiazide 2 times a week, but the patient has not started taking that medication yet. Admission Exam Per Admitting Provider PHYSICAL EXAMINATION: GENERAL: The patient is obese, not in acute distress. VITAL SIGNS: Temperature 37.1, pulse 83, respiratory rate 22, blood pressure 131/66, oxygen 94% on room air. HEENT: Pupils equal, round and reactive to light. Oral mucosa moist. NECK: No JVD, no neck masses. CARDIOVASCULAR: S1 and S2 heard. Regular rate and rhythm. No murmur, no gallop. RESPIRATORY SYSTEM: Normal AP diameter. No accessory muscle use. Mild diminished breath sounds. No obvious wheezing or crackles heard. ABDOMEN: Soft, bowel sounds present, nontender, no distention. CENTRAL NERVOUS SYSTEM: Alert and oriented. Speech is clear. No facial droop. Obeys simple commands. Insight is okay. Moves extremities. EXTREMITIES: No edema, no erythema seen. Principal Diagnosis Dizziness Possible Syncope UTI CKD III Discharge Data Allergies Allergy/AdvReac Type Severity Reaction Status Date / Time morphine AdvReac Intermediate Hypotension, Verified 01/20/23 18:36 "MAKES ME MEAN" Sulfa (Sulfonamide AdvReac Intermediate NAUSEA, Verified 01/20/23 18:36 Antibiotics) FATIGUE Consultations 01/20/23 18:42 ED Decision to Admit Stat 01/21/23 08:00 Consult Cardiology Routine Procedures Performed Laboratory Results WBC 12.75 K/ul (4.8-10.8) H 01/22/23 07: RBC 4.27 M/uL (4.70-6.10) L 01/22/23 07: Hgb 13.9 g/dl (14.0-18.0) L 01/22/23 07: Hct 40.4 % (42.0-52.0) L 01/22/23 07: MCV 94.6 fL (80.0-100.0) 01/22/23 07: MCH 32.6 pg (25.0-34.0) 01/22/23 07: MCHC 34.4 g/dL (32.0-36.0) 01/22/23 07: RDW Std Deviation 45.7 fL (36.4-46.3) 01/22/23 07: RDW Coeff of Ibrahima 13.2 % (11.5-14.5) 01/22/23 07: Plt Count 212 K/uL (130-400) 01/22/23 07: MPV 9.1 fL (9.4-12.4) L 01/22/23 07: Immature Gran % (Auto) 0.6 % 01/22/23 07: Neut % (Auto) 72.1 % 01/22/23 07: Lymph % (Auto) 16.0 % 01/22/23 07: Bonner % (Auto) 9.6 % 01/22/23 07:29 Eos % (Auto) 1.3 % 01/22/23 07:29 Baso % (Auto) 0.4 % 01/22/23 07:29 Neut # (Auto) 9.20 K/uL (1.40-6.50) H 01/22/23 07: Lymph # (Auto) 2.04 K/uL (1.2-3.4) 01/22/23 07:29 Bonner # (Auto) 1.22 K/uL (0.11-0.59) H 01/22/23 07:29 Eos # (Auto) 0.16 K/uL (0-0.50) 01/22/23 07:29 Baso # (Auto) 0.05 K/uL (0-0.2) 01/22/23 07:29 Immature Gran # (Auto) 0.08 K/uL (0.01-0.20) 01/22/23 07:29 Peripher Smr Path Cons 01/22/23 07:29 PT 10.7 Seconds (9.0-12.0) 01/20/23 17:20 INR 1.0 (0.9-1.1) 01/20/23 17:20 APTT 29.0 Seconds (21.0-31.0) 01/20/23 17:20 PTT Ratio 1.1 01/20/23 17:20 D-Dimer 740 ug/L FEU (0-500) H* 01/20/23 17:20 Sodium 134 mmol/L (136-145) L 01/22/23 07:29 Potassium 3.9 mmol/L (3.5-5.1) 01/22/23 07:29 Chloride 100 mmol/L (98-107) 01/22/23 07:29 Carbon Dioxide 24 mmol/L (21-32) 01/22/23 07:29 Anion Gap 10 (3-11) 01/22/23 07:29 BUN 29 mg/dl (6-23) H 01/22/23 07:29 Creatinine 2.29 mg/dl (0.6-1.4) H D 01/22/23 07:29 Est Cr Clr Drug Dosing 31.3 ml/min 01/22/23 07:29 Est GFR ( Amer) 31.0 ml/min 01/22/23 07:29 Est GFR (Non-Af Amer) 26.7 ml/min 01/22/23 07:29 BUN/Creatinine Ratio 12.7 (10-20) 01/22/23 07:29 Glucose 100 mg/dl (70-99(Fasting)) H 01/22/23 07:29 Estimat Average Glucose 128 mg/dl 01/21/23 05:47 Hemoglobin A1c 6.1 % (4.5-5.6) H 01/21/23 05:47 Lactate 1.3 mmol/L (0.4-2.0) 01/20/23 18:32 Calcium 8.9 mg/dl (8.6-10.3) 01/22/23 07:29 Magnesium 1.9 mg/dl (1.7-2.4) 01/21/23 05:47 Total Bilirubin 0.8 mg/dl (0.2-1.0) 01/20/23 17:20 AST 30 U/L (13-39) 01/20/23 17:20 ALT 56 U/L (7-52) H 01/20/23 17:20 Alkaline Phosphatase 74 U/L (34-104) 01/20/23 17:20 Troponin I High Sens 10.2 pg/ml (0-20) 01/21/23 17:39 B-Natriuretic Peptide 68 pg/ml (0-100) 01/20/23 18:48 Total Protein 7.1 gm/dl (6.0-8.3) 01/20/23 17:20 Albumin 4.1 gm/dl (3.4-5.0) 01/20/23 17:20 Globulin 3.0 gm/dl (2.5-4.0) 01/20/23 17:20 Albumin/Globulin Ratio 1.4 (0.9-2) 01/20/23 17:20 Procalcitonin 0.19 ng/ml (0-0.5) 01/22/23 07:29 TSH 0.907 uIu/ml (0.300-4.500) 01/20/23 17:20 Urine Color Yellow 01/20/23 19: Urine Appearance Clear (Clear) 01/20/23 19: Urine pH 5.5 (4.5-7.5) 01/20/23 19: Ur Specific [place] 1.014 (1.000-1.030) 01/20/23 19: Urine Protein Negative (Negative) 01/20/23 19: Urine Glucose (UA) Negative (Negative) 01/20/23 19: Urine Ketones Negative (Negative) 01/20/23 19: Urine Blood Negative (Negative) 01/20/23 19: Urine Nitrite Negative (Negative) 01/20/23 19: Urine Bilirubin Negative (Negative) 01/20/23 19: Urine Urobilinogen Negative (Negative) 01/20/23 19: Ur Leukocyte Esterase 1+ (Negative) H 01/20/23 19:27 Urine WBC (Auto) 10-30 /hpf (0-5) H 01/20/23 19:27 Urine RBC (Auto) 0-4 /hpf (0-4) 01/20/23 19:27 U Hyaline Cast (Auto) 0 /lpf (0-5) 01/20/23 19:27 U Epithel Cells (Auto) 5-10 /lpf (0-5) H 01/20/23 19:27 Urine Bacteria (Auto) Negative (Negative) 01/20/23 19:27 SARS-CoV-2 (PCR) NEGATIVE (Negative) 01/20/23 18:48 Influenza Type A (PCR) Negative (Neg) 01/20/23 18:48 Influenza Type B (PCR) Negative (Neg) 01/20/23 18:48 RSV (RT-PCR) Negative (Neg) 01/20/23 18:[address] 01/20/23 17:17 CT head/brain wo con CLINICAL HISTORY: weakness Technique: Contiguous axial CT images of the head were acquired from the base of the skull to the vertex without intravenous contrast administration. Images were viewed in brain, subdural and bone windows. Automated dose lowering techniques and/or adjustment according to patient size were utilized for this exam. Comparison: Comparison is made to CT head 04/21/2022 Findings: Areas of decreased attenuation are present in the periventricular and subcortical white matter bilaterally consistent with small vessel ischemic disease. Generalized cerebral atrophy with commensurate enlargement of the ventricles, sulci, and cisterns is also present. There is no acute intracranial hemorrhage or evidence of acute territorial infarction. No shift of the midline structures, mass effect, or extra-axial abnormalities are shown. Atherosclerotic calcifications are present in the intracranial segments of the internal carotid arteries. 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 Sinuses are normal. There is opacification of a few left ethmoid air cells, similar to prior exam. The orbits appear normal. There are no acute fractures of the calvaria or scalp swelling. Impression: No acute intracranial hemorrhage, no evidence of acute territorial infarction or other acute intracranial disease process. ACT 112: Negative or not required by law. Electronically signed by: Hugh Osborn M.D. 01/20/2023 6:36 PM Chest X-Ray 01/20/23 17:18 XR chest 1V portable CLINICAL HISTORY: weakness TECHNIQUE: Single frontal radiograph of the chest was obtained. Comparison: Comparison is made to chest radiograph 04/21/2022 FINDINGS: Median sternotomy wires are unchanged. Cardiomegaly is noted. The aortic arch is calcified. Prominence and cephalization of the vasculature is seen. No evidence of pleural effusion or pneumothorax. IMPRESSION: Cardiomegaly and mild pulmonary edema. ACT 112: Negative or not required by law. Electronically signed by: Hugh Osborn M.D. 01/20/2023 6:[address] 01/20/23 20:01 Exam(s): CT CHEST Without Contrast EXAM: CT Chest Without Intravenous Contrast CLINICAL HISTORY: Reason for exam: pul. congestion, underlying pneumonia, elevated wb. TECHNIQUE: Axial computed tomography images of the chest without intravenous contrast. CTDI is 22.48 mGy and DLP is 744.36 mGy-cm. Automated exposure control was utilized for the study. A dose lowering technique was utilized adhering to the principles of ALARA. COMPARISON: No relevant prior studies available. FINDINGS: Lungs: Mild interstitial thickening. No consolidation or edema. Pleural space: No pneumothorax. No effusion. Heart: Cardiomegaly. Mediastinum: Small hiatal hernia. Bones/joints: Sternotomy. Soft tissues: Unremarkable. Vasculature: Unremarkable. No thoracic aortic aneurysm. Lymph nodes: No enlarged lymph nodes. Liver: Hepatic cysts. IMPRESSION: No acute findings in the chest. Electronically signed by: Lukas Lantigua M.D. 01/20/23 21:42 PM Venous Doppler Study 01/21/23 21:55 BILATERAL LOWER EXTREMITY VENOUS DOPPLER HISTORY: Shortness of breath. elevated dimer. dvt? COMPARISON STUDY: None. FINDINGS: There is normal compressibility, flow, and augmentation within the bilateral lower extremity deep venous systems. IMPRESSION: No DVT within the right or left lower extremity. ACT 112: Negative or not required by law. Electronically signed by: Clemente Jaramillo M.D. 01/21/2023 10:04 AM Ordered Studies 01/20/23 17:17 CT head/brain wo con Stat 01/20/23 20:01 CT chest diagnostic wo con Urgent 01/21/23 21:55 US venous doppler [facility] Urgent Hospital Course (1) Shortness of breath: Patient is a 77 yr male, presents with some vertigo and shortness of breath. Dizziness/Vertigo ? Presyncope, BPPV --CT Head:No acute intracranial hemorrhage, no evidence of acute territorial infarction or other acute intracranial disease process. --Monitor on Tele PT for Rakesh--Refused PT Meclizine PRN Resolved Chronic dyspnea Possibly Multi Factorial:JEFFERSON, CAD, Obesity, P.Afib, ? diastolic dysfunction Elevated D dimer --Chest CT with out contrast:No acute findings in the chest --Venous Doppler:No DVT within the right or left lower extremity. --ECHO: Normal LV chamber size and mild concentric LVH. Normal LV systolic function, EF 55 to 60%. No segmental left ventricle wall motion abnormalities noted. Grade 1 diastolic dysfunction. Right ventricle is not well visualized. Right ventricle systolic function is reduced as assessed by tricuspid annular plane systolic excursion. Poor visualization of valvular structures without significant stenosis or regurgitation by Doppler. H/O JEFFERSON Currently asymptomatic Appreciate cardiology input Saturating well on room air UTI-POA Blood cultures: No growth to date Urine culture: Enterococcus Empirically on Rocephin, doxycycline>>Transition to PO abx upon discharge H/O Colonic Polyps S/P colonoscopy on 01/01/2023 with one 6 mm sessile polyp in the cecum S/P resection and 1 hemostatic clip placement CAD S/P CABG, S/P Aortic root repair of dilated ascending aorta in 08/2019 Continue Aspirin, ezetimibe, Repatha, Imdur, metoprolol succinate Hypertension Continue metoprolol succinate, lisinopril, Imdur BPH On Proscar and Flomax GERD Continue PPI CKD III Baseline Cr 1.8-2.0 Monitor renal function Avoid nephrotoxic agents as able DM II HbA1C: 6.1 Diet controlled JEFFERSON Continue CPAP HS P. Afib post operatively Continue metoprolol Currently not on anticoagulation DVT Px: Heparin SQ CODE STATUS Full code Disposition Home Total Time Total Time Spent Total Time Spent (In Minutes): 58 minutes Discharge Plan Discharge Items Patient Disposition: Home - Self-Care Reason For Visit: LOSS OF BALANCE, CHEST PAIN, WEAKNESS Discharge Diagnosis: Dizziness Possible Syncope UTI CKD III Activity: Per Instructions section Exercise/Sports: Gradually increase as tolerated Non-emergency contact: Primary Care Provider Call non-emergency contact if: you have any medication questions, your symptoms worsen, your pain is concerning for you and you have a fever Follow-up/Referrals: Joe Lopez MD [Primary Care Provider] - (Date & Time 01/30/2023 3:00 PM Provider Joe Lopez MD [facility] ) Diet: Carb Consistent or DM2 and Heart Healthy Diet Texture: Easy to Chew Addtl Attending Provider Instructions: Follow-up with your primary care physician on 01/30/2023 3:00 PM -- Complete antibiotic course Amoxicillin as prescribed for urinary tract infection --Obtain blood test (basic metabolic panel) in 1 week and follow-up with your primary care physician with results --Stop taking lisinopril until further instructions by your primary care physician.c -- Your blood culture results are pending at the time of discharge. Follow-up with your physician for results Seek immediate medical attention if your symptoms reoccur or worsen Please take all medications as instructed on discharge list below. Please call if you have any questions or problems. You can reach a [facility] hospitalist on duty at [facility] 24 hours a day by calling [phone] Pending Studies at Discharge: Yes Studies:: Blood cultures Stand-Alone Forms: My [facility], Smoking Cessation Medications and DC Order Prescriptions: New amoxicillin 250 mg capsule 250 mg PO BID 7 Days Qty: 14 0RF Continued aspirin 81 mg Tablet,Delayed Release (Dr/Ec) 81 mg PO QAM polyethylene glycol 3350 [Miralax] 17 gram/dose Powder 17 g PO DAILY PRN (Reason: Constipation) finasteride [Proscar] 5 mg tablet 5 mg PO QAM Centrum Silver Men 300-600-300 mcg Tablet 1 tab PO QAM Probiotic 3 billion cell Capsule 3,000 mmu cells PO [id number] Rx Instructions: Saturday,Saturday,Saturday metoprolol succinate 25 mg tablet extended release 24 hr 25 mg PO HS omeprazole magnesium [Prilosec OTC] 20 mg Tablet,Delayed Release (Dr/Ec) 40 mg PO QAM cholecalciferol (vitamin D3) 25 mcg (1,000 unit) Capsule 1,000 unit PO QAM tamsulosin 0.4 mg Capsule 0.4 mg PO HS ezetimibe 10 mg tablet 10 mg PO QAM isosorbide mononitrate 30 mg tablet extended release 24 hr 30 mg PO QAM nitroglycerin 0.4 mg tablet, sublingual 0.4 mg sublingual DIRECTED PRN (Reason: Chest Pain) Repatha SureClick 140 mg/mL pen injector 140 mg SUBCUT Q14D meclizine 25 mg tablet 25 mg PO TID PRN (Reason: dizziness) Qty: 21 0RF acetaminophen [Tylenol] 325 mg Tablet 650 mg PO HS famotidine 20 mg Tablet 20 mg PO HS cyanocobalamin (vitamin B-12) [Vitamin B-12] 500 mcg Tablet 500 mcg PO DAILY icosapent ethyl 1 gram capsule 2 g PO BIDM Discontinued lisinopril 5 mg tablet 5 mg PO QAM Discharge Orders: Discharge Order (Routine); Ordered 01/22/23 Ordered By: Brennon Cannon/Other Patient Handouts: Prediabetes, 5 Steps for Eating Healthier Admission Data Admit Date/Time: 01/20/23 20:01 Attending Provider: Brennon Silverio Admit Provider: Tristen Beltran Primary Care Provider: Joe Lopez Other Providers: Tristen Beltran ; Nereida Maurice ; Chris Pérez ; Javed Lemus ; Delvin Jordan ; Nacho Weaver ; Wilman Nichols ; Joe Beckman ; Johanne Alvarado ; Vidya Somers ; Nereida Cobb ; Sourav Rader ; Cam Dejesus
== END 2023-01-22 14:45 | disposition home or self-care (01) | DRG 690 ==
LOC: ED 16:34 → SUATTDRO 20:01 → 2S 20:01

== ENCOUNTER 2023-07-02 14:50 | Observation (INO) ==
[2023-07-02 15:33] LABS: Basophils # (auto) 0.06 K/uL (0.00-0.20); Basophils % (auto) 0.6 %; Eosinophils # (auto) 0.21 K/uL (0.00-0.50); Hematocrit (blood only) 42.3 % (42.0-52.0); Hemoglobin 14.8 g/dl (14.0-18.0); Immature Granulocytes # (auto) 0.03 K/uL (0.01-0.20); Immature Granulocytes % (auto) 0.3 %; Lymphocytes # (auto) 2.22 K/uL (1.20-3.40); Mean Corpuscular Hemoglobin 32.8 pg (25.0-34.0); Mean Corpuscular Volume 93.8 fL (80.0-100.0); Mean Platelet Volume 8.9 fL (9.4-12.4); Monocytes # (auto) 0.84 K/uL (0.11-0.59); Neutrophils % (auto) 68.1 %; Platelet Count 254 K/uL (130-400); RDW Coefficient of Variation 13.7 % (11.5-14.5); Red Blood Count 4.51 M/uL (4.70-6.10); White Blood Count 10.56 K/ul (4.8-10.8)
[2023-07-02 15:52] LABS: Albumin Globulin Ratio 1.5 (0.9-2); Albumin Level 4.4 gm/dl (3.4-5.0); BUN Creatinine Ratio 10.8 (10-20); Bilirubin,Total 0.4 mg/dl (0.2-1.0); Creatinine Clr Calc Pharmacy 38.1 ml/min; Est GFR (African American) 39.8 ml/min; Est GFR (Non-African American) 34.4 ml/min; Globulin 2.9 gm/dl (2.5-4.0); Potassium 4.2 mmol/L (3.5-5.1); Total Protein 7.3 gm/dl (6.0-8.3)
[2023-07-02 15:59] LABS: Troponin I High Sensitivity 7.1 pg/ml (0-20)
[2023-07-02 16:05] LABS: INR 0.9 (0.9-1.1); Partial Thromboplastin Ratio 0.9; Partial Thromboplastin Time 26.1 Seconds (21.0-31.0); Prothrombin Time 10.3 Seconds (9.0-12.0)
--- NOTE | 2023-07-02 16:35 | XRay Report ---
XR chest 1V not portable HISTORY: Chest pain, nonspecific COMPARISON: Chest 01/20/2023. FINDINGS: No pneumothorax. No pleural effusions. The cardiac silhouette remains mildly enlarged. Ther e are poststernotomy changes. Mild chronic interstitial thickening again noted at the lung bases. No new focal lung consolidations to suggest a pneumonia. No evidence for pulmonary edema. There is a mil dly tortuous thoracic aorta, unchanged. Slightly rotated study. No acute fractures identified. IMPRESSION: Stable mild cardiomegaly and bibasilar interstitial thickening. Otherwise, no acute process within th e chest. ACT 112: Negative or not required by law. Electronically signed by: Clemente Jaramillo M.D. 07/02/2023 4:33 PM
[2023-07-02] MEDS ORDERED: ALUMINUM/MAGNESIUM SUSP 30 ML UDC PO STA (16:53)
[2023-07-02] MEDS ORDERED: SODIUM CHLORIDE 0.9% 500 ML IV ONE (16:55)
--- NOTE | 2023-07-02 16:58 | Emergency Department Note ---
Impression & Plan Chest pain ADMIT ED Provider Note HPI: The patient is a 78-year-old gentleman with history of coronary artery disease status post triple bypass at [facility] in 2019 at which time aortic aneurysm was also repaired, presents emergency department with chief complaint of chest pain. Patient states that yesterday he had a relatively severe episode of substernal chest pain that lasted around 15 minutes. Patient states the severity was intense and his pain did not completely go away but did improve throughout the day. Patient states he had another such episode this morning and therefore came to the ED to be assessed. On arrival here to the ED and on my initial assessment patient states his pain is again improved, he denies any shortness of breath, patient is otherwise hemodynamically stable on arrival. ROS: - Per HPI Differential Diagnosis: Acute coronary syndrome, pulmonary embolism, aortic dissection, pneumothorax, acid reflux, acute pancreatitis, amongst other potential pathologies. *Outpatient medications and allergy history reviewed. *Pertinent external medical records reviewed. PE: General: Alert HEENT: Normocephalic, trachea midline Eyes: Extraocular eye movement is intact, no scleral erythema Pulmonary: Clear to auscultation bilaterally, no wheezing Cardio: Regular rate and rhythm GI: Abdomen is soft to palpation : No suprapubic tenderness MSK: No evidence of trauma or malformation of the extremities, no edema Skin: No evidence of rash Neuro: Alert, no focal deficits Psychiatric: Cooperative radiation monitor: (As interpreted by myself): - An order was placed for continuous cardiac monitoring - Patient was noted to be in sinus rhythm with a rate of 70 EKG: (As interpreted by myself): Rate: 80 Rhythm: Normal sinus rhythm Intervals: Within normal limits ST changes: No ST elevation Time: 1459 Interventions provided in ED: -Aspirin, GI cocktail, normal saline bolus Medical Decision Making: Shortly after the patient arrived IV was established and lab work obtained, patient was maintained on cardiac specialist. Lab work shows no leukocytosis, hemoglobin is stable, platelet count is within normal limits, CMP does not show any critical findings, baseline creatinine at 1.85, troponin is negative x1. Given the patient's history of aortic aneurysm repair, I did order CT angiogr aphy of the chest that does not show any evidence of pulmonary embolism or aortic dissection. Delta troponin was obtained and is also negative. On reassessment patient states he has some mild chest discomfort but this is much better than it had been recently. He denies that the chest discomfort is exertional however given his history of significant coronary artery disease requiring triple bypass surgery several years ago, I do think he would benefit from observation admission and cardiology consultation. Patient was given aspirin here in the ED, I did discuss the patient's case with the on-call midlevel provider for [facility] and the patient was excepted to the [facility] service for further management. Consultants: [facility], Dr. Beltran Disposition discussion held by myself with: Patient and at bedside Diagnosis: 1. Chest pain, acute 2. History of coronary artery disease, status post CABG Disposition: Admit Joe Lafleur DO Emergency Medicine Past Med/Surg History Medical History Aneurysm, ascending aorta HX [facility] - [facility]...SURGICALLY REPAIRED Benign prostatic hyperplasia CAD (coronary artery disease) Dyslipidemia Esophageal dysmotility (02/23/12) PT DENIES , DENIES TROUBLE SWALLOWING GERD (gastroesophageal reflux disease) Hypertension Obesity JEFFERSON (obstructive sleep apnea) CPAP SOB (shortness of breath) on exertion PT HX INHALER - REPORTS WAS UNABLE TO AFFORD AND INHALER D/C'D...CPAP USE...PT REPORTS THINKS SOB MAY BE RELATED TO AMOUNT OF BLOOD PRESSURE MEDI CINE HE TAKES AND PLANS TO DISCUSS WITH Surgical History History of cataract surgery RT History of colonoscopy History of removal of cyst BEHIND EAR History of shoulder surgery Hx laparoscopic cholecystectomy (08/14/21) Laparoscopic Cholecystectomy Dr. Daniels 08/14/21 S/P ascending aortic aneurysm repair Aug 2019 in [place] (TRIPLE BYPASS AND ANEURYSM REPAIR 1 SURGICAL PROCEDURE) S/P CABG (coronary artery bypass graft) Aug 2019 in [place] (TRIPLE BYPASS AND ANEURYSM REPAIR 1 SURGICAL PROCEDU RE) Family History Mother Heart disease Breast cancer Father Heart disease Social History Smoking Status: Former smoker Second Hand Exposure: No; Do You Dip or Chew Tobacco: No (Pass use); Hx Alcohol Use: No Hx Substance Use: No Preferred Language: [place]ican Communication Ability: Effective Rn Home Health Required: No Beliefs That Will Affect Care: None marital status: Current Living Situation: Spouse and Other Current Living Situation Comment: Grandson - 17 y/o current occupational status: retired current occupation: Retired Feels Safe at Home: Yes Assistive Devices: Cane and CPAP Allergies Allergies Allergy/AdvReac Type Severity Reaction Status Date / Time morphine AdvReac Intermediate Hypotension, Verified 07/02/23 17:11 "MAKES ME MEAN" Sulfa (Sulfonamide AdvReac Intermediate NAUSEA, Verified 07/02/23 17:11 Antibiotics) FATIGUE Home Meds Home Medications Medication Instructions Recorded Confirmed aspirin 81 mg tablet,delayed 81 mg PO QAM 08/16/19 07/02/23 release finasteride 5 mg tablet (Proscar) 5 mg PO QAM 08/16/19 07/02/23 lactobacillus combination no.4 3 3,000 mmu cells PO 3XWK 08/16/19 07/02/23 billion cell capsule (Probiotic) [id number] 300 mcg-K 60 1 tab PO QAM 08/16/19 07/02/23 mcg-lycop 600 mcg-lutein 300 mcg tablet (Centrum Silver Men) polyethylene glycol 3350 17 17 g PO DAILY PRN Constipation 08/16/19 07/02/23 gram/dose oral powder (Miralax) cholecalciferol (vitamin D3) 25 1,000 unit PO QAM 06/19/20 07/02/23 mcg (1,000 unit) capsule metoprolol succinate 25 mg 25 mg PO HS 06/19/20 07/02/23 tablet,extended release 24 hr omeprazole magnesium 20 mg 20 mg PO QAM 06/19/20 07/02/23 tablet,delayed release (Prilosec OTC) tamsulosin 0.4 mg capsule 0.4 mg PO HS 03/23/21 07/02/23 ezetimibe 10 mg tablet 10 mg PO QAM 08/13/21 07/02/23 isosorbide mononitrate 30 mg 30 mg PO QAM 03/07/22 07/02/23 tablet,extended release 24 hr nitroglycerin 0.4 mg sublingual 0.4 mg sublingual DIRECTED PRN 03/07/22 07/02/23 tablet Chest Pain acetaminophen 325 mg tablet 650 mg PO HS 01/20/23 07/02/23 (Tylenol) alirocumab 75 mg/mL subcutaneous 75 mg subcut .[id number] 07/02/23 07/02/23 pen injector (Praluent Pen) hydrochlorothiazide 25 mg tablet 25 mg PO 2XWK 07/02/23 07/02/23 lisinopril 5 mg tablet 5 mg PO DAILY 07/02/23 07/02/23 oxycodone-acetaminophen 5 mg-325 1 tab PO Q4H PRN Pain 07/02/23 07/02/23 mg tablet Results & Data (ED) Vital Signs Vital Signs - 24 hr 07/02/23 14:53 07/02/23 14:56 07/02/23 14:56 Temperature 36.6 C Temperature Source Temporal Artery Scan Pulse Rate 94 H Pulse Rate from SpO2 Sensor Pulse Rhythm Regular Pulse Strength Normal Respiratory Rate 20 Respiratory Effort / Characteristics Non-Labored Spontaneous Respiratory Depth Normal Respiratory Pattern Regular Blood Pressure 145/79 H Blood Pressure Mean 101 Blood Pressure Position Right Lateral Pulse Oximetry 96 97 96 Oxygen Delivery Method Room Air Room Air Room Air Sepsis Recent Fever Within 48 Hours No Sepsis New/Unexplained Change in Mental Status No Sepsis Action Taken by Nursing No Action Required 07/02/23 15:34 07/02/23 15:20 07/02/23 15:21 Temperature Temperature Source Pulse Rate 88 92 H Pulse Rate from SpO2 Sensor Pulse Rhythm Pulse Strength Respiratory Rate 13 Respiratory Effort / Characteristics Respiratory Depth Respiratory Pattern Blood Pressure Blood Pressure Mean Blood Pressure Position Pulse Oximetry Oxygen Delivery Method Room Air Sepsis Recent Fever Within 48 Hours Sepsis New/Unexplained Change in Mental Status Sepsis Action Taken by Nursing 07/02/23 15:30 07/02/23 15:30 07/02/23 16:00 Temperature Temperature Source Pulse Rate 90 Pulse Rate from SpO2 Sensor Pulse Rhythm Pulse Strength Respiratory Rate 24 Respiratory Effort / Characteristics Respiratory Depth Respiratory Pattern Blood Pressure 134/82 132/85 Blood Pressure Mean 101 89 Blood Pressure Position Pulse Oximetry Oxygen Delivery Method Sepsis Recent Fever Within 48 Hours Sepsis New/Unexplained Change in Mental Status Sepsis Action Taken by Nursing 07/02/23 16:00 07/02/23 16:30 07/02/23 16:30 Temperature Temperature Source Pulse Rate 91 H 91 H Pulse Rate from SpO2 Sensor 85 90 Pulse Rhythm Pulse Strength Respiratory Rate 21 17 Respiratory Effort / Characteristics Respiratory Depth Respiratory Pattern Blood Pressure 133/88 Blood Pressure Mean 102 Blood Pressure Position Pulse Oximetry 92 96 Oxygen Delivery Method Sepsis Recent Fever Within 48 Hours Sepsis New/Unexplained Change in Mental Status Sepsis Action Taken by Nursing 07/02/23 17:00 07/02/23 17:00 07/02/23 17:00 Temperature Temperature Source Pulse Rate 82 Pulse Rate from SpO2 Sensor 82 Pulse Rhythm Pulse Strength Respiratory Rate 23 Respiratory Effort / Characteristics Respiratory Depth Respiratory Pattern Blood Pressure 133/82 133/82 Blood Pressure Mean 105 105 Blood Pressure Position Pulse Oximetry 96 Oxygen Delivery Method Sepsis Recent Fever Within 48 Hours Sepsis New/Unexplained Change in Mental Status Sepsis Action Taken by Nursing 07/02/23 17:32 07/02/23 18:05 07/02/23 18:30 Temperature Temperature Source Pulse Rate 80 78 Pulse Rate from SpO2 Sensor Pulse Rhythm Pulse Strength Respiratory Rate 19 15 Respiratory Effort / Characteristics Respiratory Depth Respiratory Pattern Blood Pressure 150/88 H Blood Pressure Mean 108 Blood Pressure Position Pulse Oximetry Oxygen Delivery Method Sepsis Recent Fever Within 48 Hours Sepsis New/Unexplained Change in Mental Status Sepsis Action Taken by Nursing 07/02/23 18:30 07/02/23 19:00 07/02/23 19:00 Temperature Temperature Source Pulse Rate 72 72 Pulse Rate from SpO2 Sensor 73 72 Pulse Rhythm Pulse Strength Respiratory Rate 22 29 H Respiratory Effort / Characteristics Respiratory Depth Respiratory Pattern Blood Pressure 146/84 H Blood Pressure Mean 109 Blood Pressure Position Pulse Oximetry 96 96 Oxygen Delivery Method Sepsis Recent Fever Within 48 Hours Sepsis New/Unexplained Change in Mental Status Sepsis Action Taken by Nursing 07/02/23 19:20 07/02/23 19:18 Temperature Temperature Source Pulse Rate 75 70 Pulse Rate from SpO2 Sensor Pulse Rhythm Pulse Strength Respiratory Rate 22 Respiratory Effort / Characteristics Respiratory Depth Respiratory Pattern Blood Pressure 137/79 Blood Pressure Mean 98 Blood Pressure Position Pulse Oximetry 97 Oxygen Delivery Method Room Air Sepsis Recent Fever Within 48 Hours Sepsis New/Unexplained Change in Mental Status Sepsis Action Taken by Nursing Laboratory Data 07/02/23 15:07 07/02/23 15:07 Lab Results 07/02/23 07/02/23 07/02/23 Range/Units 15:07 15:07 15:07 WBC 10.56 (4.8-10.8) K/ul RBC 4.51 L (4.70-6.10) M/uL Hgb 14.8 (14.0-18.0) g/dl Hct 42.3 (42.0-52.0) % MCV 93.8 (80.0-100.0) fL MCH 32.8 (25.0-34.0) pg MCHC 35.0 (32.0-36.0) g/dL RDW Std Deviation 48.0 H (36.4-46.3) fL RDW Coeff of Ibrahima 13.7 (11.5-14.5) % Plt Count 254 (130-400) K/uL MPV 8.9 L (9.4-12.4) fL Immature Gran % (Auto) 0.3 % Neut % (Auto) 68.1 % Lymph % (Auto) 21.0 % [place] % (Auto) 8.0 % Eos % (Auto) 2.0 % Baso % (Auto) 0.6 % Neut # (Auto) 7.20 H (1.40-6.50) K/uL Lymph # (Auto) 2.22 (1.20-3.40) K/uL [place] # (Auto) 0.84 H (0.11-0.59) K/uL Eos # (Auto) 0.21 (0.00-0.50) K/uL Baso # (Auto) 0.06 (0.00-0.20) K/uL Immature Gran # (Auto) 0.03 (0.01-0.20) K/uL PT 10.3 (9.0-12.0) Seconds INR 0.9 (0.9-1.1) APTT 26.1 (21.0-31.0) Seconds PTT Ratio 0.9 Sodium 135 L (136-145) mmol/L Potassium 4.2 (3.5-5.1) mmol/L Chloride 103 (98-107) mmol/L Carbon Dioxide 23 (21-32) mmol/L Anion Gap 9 (3-11) BUN 20 (6-23) mg/dl Creatinine 1.85 H (0.6-1.4) mg/dl Est Cr Clr Drug Dosing 38.1 ml/min Est GFR ( Amer) 39.8 ml/min Est GFR (Non-Af Amer) 34.4 ml/min BUN/Creatinine Ratio 10.8 (10-20) Glucose 123 H (70-99(Fasting)) mg/dl Calcium 9.0 (8.6-10.3) mg/dl Total Bilirubin 0.4 (0.2-1.0) mg/dl AST 63 H (13-39) U/L ALT 78 H (7-52) U/L Alkaline Phosphatase 89 (34-104) U/L Troponin I High Sens 7.1 (0-20) pg/ml Total Protein 7.3 (6.0-8.3) gm/dl Albumin 4.4 (3.4-5.0) gm/dl Globulin 2.9 (2.5-4.0) gm/dl Albumin/Globulin Ratio 1.5 (0.9-2) 07/02/23 Range/Units 17:02 WBC (4.8-10.8) K/ul RBC (4.70-6.10) M/uL Hgb (14.0-18.0) g/dl Hct (42.0-52.0) % MCV (80.0-100.0) fL MCH (25.0-34.0) pg MCHC (32.0-36.0) g/dL RDW Std Deviation (36.4-46.3) fL RDW Coeff of Ibrahima (11.5-14.5) % Plt Count (130-400) K/uL MPV (9.4-12.4) fL Immature Gran % (Auto) % Neut % (Auto) % Lymph % (Auto) % [place] % (Auto) % Eos % (Auto) % Baso % (Auto) % Neut # (Auto) (1.40-6.50) K/uL Lymph # (Auto) (1.20-3.40) K/uL [place] # (Auto) (0.11-0.59) K/uL Eos # (Auto) (0.00-0.50) K/uL Baso # (Auto) (0.00-0.20) K/uL Immature Gran # (Auto) (0.01-0.20) K/uL PT (9.0-12.0) Seconds INR (0.9-1.1) APTT (21.0-31.0) Seconds PTT Ratio Sodium (136-145) mmol/L Potassium (3.5-5.1) mmol/L Chloride (98-107) mmol/L Carbon Dioxide (21-32) mmol/L Anion Gap (3-11) BUN (6-23) mg/dl Creatinine (0.6-1.4) mg/dl Est Cr Clr Drug Dosing ml/min Est GFR ( Amer) ml/min Est GFR (Non-Af Amer) ml/min BUN/Creatinine Ratio (10-20) Glucose (70-99(Fasting)) mg/dl Calcium (8.6-10.3) mg/dl Total Bilirubin (0.2-1.0) mg/dl AST (13-39) U/L ALT (7-52) U/L Alkaline Phosphatase (34-104) U/L Troponin I High Sens 7.1 (0-20) pg/ml Total Protein (6.0-8.3) gm/dl Albumin (3.4-5.0) gm/dl Globulin (2.5-4.0) gm/dl Albumin/Globulin Ratio (0.9-2) Administered Medications Discontinued Medications Al Hydrox/Mg Hydrox/Simethicone (Aluminum/Magnesium Susp 30 Ml Udc) 30 ml PO NOW STA Stop: 07/02/23 16:54 Last Admin: 07/02/23 16:58 Dose: 30 ml Documented By: APARNA Aspirin (Aspirin Chew 324 Mg) 324 mg PO NOW STA Stop: 07/02/23 18:27 Last Admin: 07/02/23 19:31 Dose: Not Given Documented By: PIEDAD Sodium Chloride (Nss) 500 mls @ 999 mls/hr IV .Q31M ONE Stop: 07/02/23 17:25 Last Infusion: 07/02/23 18:12 Dose: 0 mls/hr Documented By: Admin: 07/02/23 16:59 Dose: 999 mls/hr Documented By: APARNA Ioversol (Ioversol 350 Mg 125ml Prefilled Syringe) 116 ml IV ONCE ONE Stop: 07/02/23 17:25 Last Admin: 07/02/23 17:25 Dose: 116 ml Documented By: MCKENZIE Imaging Data Radiologist's Impression: Chest X-Ray 07/02/23 14:56 XR chest 1V not portable HISTORY: Chest pain, nonspecific COMPARISON: Chest 01/20/2023. FINDINGS: No pneumothorax. No pleural effusions. The cardiac silhouette remains mildly enlarged. There are poststernotomy changes. Mild chronic interstitial thickening again noted at the lung bases. No new focal lung consolidations to suggest a pneumonia. No evidence for pulmonary edema. There is a mildly tortuous thoracic aorta, unchanged. Slightly rotated study. No acute fractures identified. IMPRESSION: Stable mild cardiomegaly and bibasilar interstitial thickening. Otherwise, no acute process within the chest. ACT 112: Negative or not required by law. Electronically signed by: Clemente Jaramillo M.D. 07/02/2023 4:33 PM Chest CTA 07/02/23 16:53 CT angio chest PE protocol CT DOSE: 889.38 mGy.cm HISTORY: 78 years-old Male with PE. Acute shortness of breath TECHNIQUE: Multiple CTA images of the chest were obtained after the intravenous administration of 116 ml Optiray. Coronal and sagittal MIPS were obtained from the axial data set and were submitted for review. All measurements were obtained according to NASCET criteria. A dose lowering technique was utilized adhering to the principles of ALARA. COMPARISON: 01/20/2023 FINDINGS: CTA: Mild cardiomegaly. Prior median sternotomy with CABG. Extensive calcifications of the [place] coronary arteries. There is atherosclerosis of the thoracic aorta without aneurysm. No pulmonary emboli identified. CT CHEST: No thyroid nodule or lymphadenopathy identified. No pneumothorax, pleural effusion or overt pulmonary edema. Mild pulmonary emphysema with subsegmental bibasilar atelectasis/scarring. No suspicious pulmonary nodules or masses. Cysts within the liver measure up to 11 cm. Hepatic sedative doses. Tiny hiatal hernia. Unremarkable soft tissues. There is no acute fracture identified. IMPRESSION: 1. No pulmonary emboli identified. 2. No pleural effusion or airspace consolidation typical for pneumonia. 3. No lymphadenopathy. ACT 112: Negative or not required by law. The above report was generated using voice recognition software. It may contain grammatical, syntax or spelling errors. Electronically signed by: Paul Morocho M.D. 07/02/2023 5:49 PM Discharge Plan Visit Data Chief Complaint: Cardiac Assessment Stated Complaint: DOC REF,CHEST PAIN,SOB ED Provider: Joe Lafleur Discharge Problem: Chest pain Forms Stand Alone Forms: [facility] [employer] Prescriptions Prescriptions: No Action aspirin 81 mg Tablet,Delayed Release (Dr/Ec) 81 mg PO QAM polyethylene glycol 3350 [Miralax] 17 gram/dose Powder 17 g PO DAILY PRN (Reason: Constipation) finasteride [Proscar] 5 mg tablet 5 mg PO QAM Centrum Silver Men 300-600-300 mcg Tablet 1 tab PO QAM Probiotic 3 billion cell Capsule 3,000 mmu cells PO 3XWK Rx Instructions: Saturday,Saturday,Saturday metoprolol succinate 25 mg tablet extended release 24 hr 25 mg PO HS omeprazole magnesium [Prilosec OTC] 20 mg Tablet,Delayed Release (Dr/Ec) 20 mg PO QAM cholecalciferol (vitamin D3) 25 mcg (1,000 unit) Capsule 1,000 unit PO QAM tamsulosin 0.4 mg Capsule 0.4 mg PO HS ezetimibe 10 mg tablet 10 mg PO QAM isosorbide mononitrate 30 mg tablet extended release 24 hr 30 mg PO QAM nitroglycerin 0.4 mg tablet, sublingual 0.4 mg sublingual DIRECTED PRN (Reason: Chest Pain) oxycodone-acetaminophen 5-325 mg Tablet 1 tab PO Q4H PRN (Reason: Pain) lisinopril 5 mg Tablet 5 mg PO DAILY hydrochlorothiazide 25 mg Tablet 25 mg PO 2XWK Praluent Pen 75 mg/mL Pen Injector 75 mg SUBCUT .[id number] acetaminophen [Tylenol] 325 mg Tablet 650 mg PO HS Referrals Referrals: Joe Lopez MD [Primary Care Provider] -
[2023-07-02] MEDS ORDERED: IOVERSOL 350 MG 125mL Prefilled Syringe IV ONE (17:24)
--- NOTE | 2023-07-02 17:51 | CT Scan Report ---
CT angio chest PE protocol CT DOSE: 889.38 mGy.cm HISTORY: 78 years-old Male with PE. Acute shortness of breath TECHNIQUE: Multiple CTA images of the chest were obtained after the intravenous administration of 116 ml Optiray. Coronal and sagittal MIPS were obtained from the axial data set and were submitted for review. All measurements were obtained according to NASCET criteria. A dose lowering technique was u tilized adhering to the principles of ALARA. COMPARISON: 01/20/2023 FINDINGS: CTA: Mild cardiomegaly. Prior median sternotomy with CABG. Extensive calcifications of the [place] coronary arteries. There is atherosclerosis of the thoracic aorta without aneurysm. No pulmonary emboli ident ified. CT CHEST: No thyroid nodule or lymphadenopathy identified. No pneumothorax, pleural effusion or overt pulmonary edema. Mild pulmonary emphysema with subsegmental bibasilar atelectasis/scarring. No suspicious pulm onary nodules or masses. Cysts within the liver measure up to 11 cm. Hepatic sedative doses. Tiny hiatal hernia. Unremarkable soft tissues. There is no acute fracture identified. IMPRESSION: 1. No pulmonary emboli identified. 2. No pleural effusion or airspace consolidation typical for pneumonia. 3. No lymphadenopathy. ACT 112: Negative or not required by law. The above report was generated using voice recognition software. It may contain grammatical, syntax o r spelling errors. Electronically signed by: Paul Morocho M.D. 07/02/2023 5:49 PM
[2023-07-02] MEDS ORDERED: ASPIRIN CHEW 324 MG PO STA (18:26)
[2023-07-02] MEDS ORDERED: FAMOTIDINE 20 MG in SYRINGE 3 ML IV STA (19:59)
[2023-07-02] MEDS ORDERED: oxyCODONE/ACETAMINOPHEN 5mg/325mg TAB PO PRN (20:26)
[2023-07-02] MEDS ORDERED: NITROGLYCERIN SL 0.4 MG/TAB TAB SL PRN (20:26)
[2023-07-02] MEDS ORDERED: POLYETHYLENE (MIRALAX) 17 GM PACK PO PRN (20:26)
[2023-07-02] MEDS ORDERED: ACETAMINOPHEN 325 MG TAB PO PRN (20:26)
--- NOTE | 2023-07-02 20:51 | History & Physical Report ---
Date of Service July 02, 2023 Assessment & Plan (1) Chest pain: Plan: 78-year-old male with past med significant for dyslipidemia, prediabetes, obstructive sleep apnea on CPAP, history of ascending aortic aneurysms s/p repair, aortic root dilatation, CAD s/p CABG, history of CHF history of paroxysmal atrial fibrillation, GERD, irritable syndrome, chronic constipation, vitamin D deficiency, BPH, chronic kidney stage III, statin intolerance, depression presents with chest pain and epigastric pain. Chest pain History of CAD s/p CABG Initial troponin and EKG okay We will follow serial cardiac enzymes and echocardiogram We will monitor on telemetry floor n.p.o. from midnight Consult cardiology in a.m. for further recommendations Epigastric tenderness continue home omeprazole IV Pepcid If no improvement follow-up with GI History of CAD s/p CABG S/P Aortic root repair of dilated ascending aorta in 08/2019 On aspirin, ezetimibe and praluent and Imdur and metoprolol. Hypertension On metoprolol, Imdur, lisinopril and HCTZ We will monitor BPH Flomax and Proscar Chronic kidney stage III baseline creatinine 1.8-2.0 Diabetes diet controlled We will check HbA1c levels next. GERD On omeprazole IV Pepcid for now Paroxysmal atrial fibrillation postop On metoprolol. Currently not on anticoagulation. Obstructive sleep apnea CPAP nightly DVT prophylaxis SCDs for now Disposition observe med/telemetry Full code Admission and Anticipated Discharge Date Admission Date: July 02, 2023 History of Present Illness Chief Complaint: Chest pain Primary Care Provider: Joe Lopez MD 78-year-old male with past med history significant for dyslipidemia, prediabetes, obstructive sleep apnea on CPAP, history of ascending aortic aneurysms s/p repair, aortic root dilatation, CAD s/p CABG, history of CHF history of paroxysmal atrial fibrillation GERD irritable syndrome, chronic constipation, vitamin D deficiency, BPH, chronic kidney stage III, statin intolerance, depression presents with chest pain and epigastric pain. Patient since yesterday is having lower chest pain stabbing type including epigastric region. The pain was all day yesterday but then got resolved. Today woke up and he went to grocery stores and came back. After coming back again he developed same pain. Associated with nausea, mild dizziness and shortness of breath. He also had mild sweating. In the ER received maalox and aspirin. Currently pain improved while resting but states if he moves around the pain comes back. Denies any headache currently. Vision is okay. No earache. No runny nose. No sore throat. No cough. No dysphagia. Currently no abdominal pain. Normal bowel and bladder movements. Currently resting comfortably and hemodynamically stable. Past medical history as mentioned above Past surgical history ascending aortic graft bypass, CABG, carpal tunnel surgery, colonoscopy, EGD, left shoulder repair. Social history quit smoking 1969 and smoked 1 pack a day for 25 years no alcohol use. No drug use. Family history mother had breast cancer and heart disease. Father had heart disease. Allergies Allergy/AdvReac Type Severity Reaction Status Date / Time morphine AdvReac Intermediate Hypotension, Verified 07/02/23 17:11 "MAKES ME MEAN" Sulfa (Sulfonamide AdvReac Intermediate NAUSEA, Verified 07/02/23 17:11 Antibiotics) FATIGUE Home Medications Medication Instructions Recorded Confirmed Type aspirin 81 mg tablet,delayed 81 mg PO QAM 08/16/19 07/02/23 History release finasteride 5 mg tablet (Proscar) 5 mg PO QAM 08/16/19 07/02/23 History lactobacillus combination no.4 3 3,000 mmu cells PO 3XWK 08/16/19 07/02/23 History billion cell capsule (Probiotic) [id number]-[id number] 300 mcg-K 60 1 tab PO QAM 08/16/19 07/02/23 History mcg-lycop 600 mcg-lutein 300 mcg tablet (Centrum Silver Men) polyethylene glycol 3350 17 17 g PO DAILY PRN Constipation 08/16/19 07/02/23 History gram/dose oral powder (Miralax) cholecalciferol (vitamin D3) 25 1,000 unit PO QAM 06/19/20 07/02/23 History mcg (1,000 unit) capsule metoprolol succinate 25 mg 25 mg PO HS 06/19/20 07/02/23 History tablet,extended release 24 hr omeprazole magnesium 20 mg 20 mg PO QAM 06/19/20 07/02/23 History tablet,delayed release (Prilosec OTC) tamsulosin 0.4 mg capsule 0.4 mg PO HS 03/23/21 07/02/23 History ezetimibe 10 mg tablet 10 mg PO QAM 08/13/21 07/02/23 History isosorbide mononitrate 30 mg 30 mg PO QAM 03/07/22 07/02/23 History tablet,extended release 24 hr nitroglycerin 0.4 mg sublingual 0.4 mg sublingual DIRECTED PRN 03/07/22 07/02/23 History tablet Chest Pain acetaminophen 325 mg tablet 650 mg PO HS 01/20/23 07/02/23 History (Tylenol) alirocumab 75 mg/mL subcutaneous 75 mg subcut .[id number] 07/02/23 07/02/23 History pen injector (Praluent Pen) hydrochlorothiazide 25 mg tablet 25 mg PO 2XWK 07/02/23 07/02/23 History lisinopril 5 mg tablet 5 mg PO DAILY 07/02/23 07/02/23 History oxycodone-acetaminophen 5 mg-325 1 tab PO Q4H PRN Pain 07/02/23 07/02/23 History mg tablet Past Med/Surg History Medical History Aneurysm, ascending aorta HX OF - 4.5 cm per [facility] echo 08/11/19...SURGICALLY REPAIRED Benign prostatic hyperplasia CAD (coronary artery disease) Dyslipidemia Esophageal dysmotility (02/23/12) PT DENIES , DENIES TROUBLE SWALLOWING GERD (gastroesophageal reflux disease) Hypertension Obesity JEFFERSON (obstructive sleep apnea) CPAP SOB (shortness of breath) on exertion PT HX INHALER - REPORTS WAS UNABLE TO AFFORD AND INHALER D/C'D...CPAP USE...PT REPORTS THINKS SOB MAY BE RELATED TO AMOUNT OF BLOOD PRESSURE MEDICINE HE TAKES AND PLANS TO DISCUSS WITH Surgical History History of cataract surgery RT History of colonoscopy History of removal of cyst BEHIND EAR History of shoulder surgery Hx laparoscopic cholecystectomy (08/14/21) Laparoscopic Cholecystectomy Dr. Daniels 08/14/21 S/P ascending aortic aneurysm repair Aug 2019 in [place] (TRIPLE BYPASS AND ANEURYSM REPAIR 1 SURGICAL PROCEDURE) S/P CABG (coronary artery bypass graft) Aug 2019 in [place] (TRIPLE BYPASS AND ANEURYSM REPAIR 1 SURGICAL PROCEDURE) Family History Mother Heart disease Breast cancer Father Heart disease Social History Smoking Status: Former smoker Tobacco Type: Cigarettes Second Hand Exposure: No; Do You Dip or Chew Tobacco: No; Hx Alcohol Use: No Hx Substance Use: No Preferred Language: Azeri Communication Ability: Effective [employer] Required: No Beliefs That Will Affect Care: None marital status: Current Living Situation: Spouse and Family Current Living Situation Comment: Grandson - 17 y/o current occupational status: retired current occupation: Retired Feels Safe at Home: Yes Safety Concerns: Feels Safe At This Time Assistive Devices: Cane and CPAP Review of Systems Review of Systems: All systems reviewed & are unremarkable except as noted in HPI & below Physical Exam Physical Exam: General- Not in distress Head- atraumatic Eyes- PERRL. ENT- oropharynx clear Neck- supple, no JVD. Lungs- clear to auscultation no wheezing or crackles. Heart- regular rate and rhythm; no murmur, no gallop. Abdomen- normal bowel sounds, soft, nontender, no distension. Extremities- no pretibial edema, no erythema seen. Neuro- alert, oriented x 3; PERRL, no facial palsy; no dysarthria; non focal. Skin- warm & dry Results & Data Results & Data Vital Signs (Past 12 Hours) Vital Signs Temp Pulse Resp BP Pulse Ox O2 Del Method 07/02/23 19:18 70 22 137/79 97 Room Air 07/02/23 19:20 75 07/02/23 19:00 72 29 H 96 07/02/23 19:00 146/84 H 07/02/23 18:30 72 22 96 07/02/23 18:30 150/88 H 07/02/23 18:05 78 15 07/02/23 17:32 80 19 07/02/23 17:00 82 23 96 07/02/23 17:00 133/82 07/02/23 17:00 133/82 07/02/23 16:30 91 H 17 96 07/02/23 16:30 133/88 07/02/23 16:00 91 H 21 92 07/02/23 16:00 132/85 07/02/23 15:30 90 24 07/02/23 15:30 134/82 07/02/23 15:21 92 H 13 07/02/23 15:20 88 07/02/23 15:34 Room Air 07/02/23 14:56 96 Room Air 07/02/23 14:56 97 Room Air 07/02/23 14:53 36.6 C 94 H 20 145/79 H 96 Room Air Diagnostic Findings Laboratory Results WBC 10.56 K/ul (4.8-10.8) 07/02/23 15:07 RBC 4.51 M/uL (4.70-6.10) L 07/02/23 15:07 Hgb 14.8 g/dl (14.0-18.0) 07/02/23 15:07 Hct 42.3 % (42.0-52.0) 07/02/23 15:07 MCV 93.8 fL (80.0-100.0) 07/02/23 15:07 MCH 32.8 pg (25.0-34.0) 07/02/23 15:07 MCHC 35.0 g/dL (32.0-36.0) 07/02/23 15:07 RDW Std Deviation 48.0 fL (36.4-46.3) H 07/02/23 15:07 RDW Coeff of Ibrahima 13.7 % (11.5-14.5) 07/02/23 15:07 Plt Count 254 K/uL (130-400) 07/02/23 15:07 MPV 8.9 fL (9.4-12.4) L 07/02/23 15:07 Immature Gran % (Auto) 0.3 % 07/02/23 15:07 Neut % (Auto) 68.1 % 07/02/23 15:07 Lymph % (Auto) 21.0 % 07/02/23 15:07 [place] % (Auto) 8.0 % 07/02/23 15:07 Eos % (Auto) 2.0 % 07/02/23 15:07 Baso % (Auto) 0.6 % 07/02/23 15:07 Neut # (Auto) 7.20 K/uL (1.40-6.50) H 07/02/23 15:07 Lymph # (Auto) 2.22 K/uL (1.20-3.40) 07/02/23 15:07 [place] # (Auto) 0.84 K/uL (0.11-0.59) H 07/02/23 15:07 Eos # (Auto) 0.21 K/uL (0.00-0.50) 07/02/23 15:07 Baso # (Auto) 0.06 K/uL (0.00-0.20) 07/02/23 15:07 Immature Gran # (Auto) 0.03 K/uL (0.01-0.20) 07/02/23 15:07 PT 10.3 Seconds (9.0-12.0) 07/02/23 15:07 INR 0.9 (0.9-1.1) 07/02/23 15:07 APTT 26.1 Seconds (21.0-31.0) 07/02/23 15:07 PTT Ratio 0.9 07/02/23 15:07 Sodium 135 mmol/L (136-145) L 07/02/23 15:07 Potassium 4.2 mmol/L (3.5-5.1) 07/02/23 15:07 Chloride 103 mmol/L (98-107) 07/02/23 15:07 Carbon Dioxide 23 mmol/L (21-32) 07/02/23 15:07 Anion Gap 9 (3-11) 07/02/23 15:07 BUN 20 mg/dl (6-23) 07/02/23 15:07 Creatinine 1.85 mg/dl (0.6-1.4) H 07/02/23 15:07 Est Cr Clr Drug Dosing 38.1 ml/min 07/02/23 15:07 Est GFR ( Amer) 39.8 ml/min 07/02/23 15:07 Est GFR (Non-Af Amer) 34.4 ml/min 07/02/23 15:07 BUN/Creatinine Ratio 10.8 (10-20) 07/02/23 15:07 Glucose 123 mg/dl (70-99(Fasting)) H 07/02/23 15:07 Calcium 9.0 mg/dl (8.6-10.3) 07/02/23 15:07 Total Bilirubin 0.4 mg/dl (0.2-1.0) 07/02/23 15:07 AST 63 U/L (13-39) H 07/02/23 15:07 ALT 78 U/L (7-52) H 07/02/23 15:07 Alkaline Phosphatase 89 U/L (34-104) 07/02/23 15:07 Troponin I High Sens 7.1 pg/ml (0-20) 07/02/23 17:02 Total Protein 7.3 gm/dl (6.0-8.3) 07/02/23 15:07 Albumin 4.4 gm/dl (3.4-5.0) 07/02/23 15:07 Globulin 2.9 gm/dl (2.5-4.0) 07/02/23 15:07 Albumin/Globulin Ratio 1.5 (0.9-2) 07/02/23 15:07 Impressions Chest X-Ray 07/02/23 14:56 XR chest 1V not portable HISTORY: Chest pain, nonspecific COMPARISON: Chest 01/20/2023. FINDINGS: No pneumothorax. No pleural effusions. The cardiac silhouette remains mildly enlarged. There are poststernotomy changes. Mild chronic interstitial thickening again noted at the lung bases. No new focal lung consolidations to suggest a pneumonia. No evidence for pulmonary edema. There is a mildly tortuous thoracic aorta, unchanged. Slightly rotated study. No acute fractures identified. IMPRESSION: Stable mild cardiomegaly and bibasilar interstitial thickening. Otherwise, no acute process within the chest. ACT 112: Negative or not required by law. Electronically signed by: Clemente Jaramillo M.D. 07/02/2023 4:33 PM Chest CTA 07/02/23 16:53 CT angio chest PE protocol CT DOSE: 889.38 mGy.cm HISTORY: 78 years-old Male with PE. Acute shortness of breath TECHNIQUE: Multiple CTA images of the chest were obtained after the intravenous administration of 116 ml Optiray. Coronal and sagittal MIPS were obtained from the axial data set and were submitted for review. All measurements were obtained according to NASCET criteria. A dose lowering technique was utilized adhering to the principles of ALARA. COMPARISON: 01/20/2023 FINDINGS: CTA: Mild cardiomegaly. Prior median sternotomy with CABG. Extensive calcifications of the ramona coronary arteries. There is atherosclerosis of the thoracic aorta without aneurysm. No pulmonary emboli identified. CT CHEST: No thyroid nodule or lymphadenopathy identified. No pneumothorax, pleural effusion or overt pulmonary edema. Mild pulmonary emphysema with subsegmental bibasilar atelectasis/scarring. No suspicious pulmonary nodules or masses. Cysts within the liver measure up to 11 cm. Hepatic sedative doses. Tiny hiatal hernia. Unremarkable soft tissues. There is no acute fracture identified. IMPRESSION: 1. No pulmonary emboli identified. 2. No pleural effusion or airspace consolidation typical for pneumonia. 3. No lymphadenopathy. ACT 112: Negative or not required by law. The above report was generated using voice recognition software. It may contain grammatical, syntax or spelling errors. Electronically signed by: Paul Morocho M.D. 07/02/2023 5:49 PM ECG Additional Comments: ECG. Normal sinus rhythm with a rate of 80. Pulmonary disease pattern. Left anterior fascicle block. No acute ST changes seen Code Status & VTE Plan VTE Prophylaxis Plan VTE Prophylaxis will be ordered: Yes
[2023-07-02] MEDS ORDERED: TAMSULOSIN HCL 0.4 MG CAP PO SCH (21:00)
[2023-07-02] MEDS ORDERED: ACETAMINOPHEN 325 MG TAB PO SCH (21:00)
[2023-07-02] MEDS ORDERED: METOPROLOL SUCC 25MG EXT REL TAB PO SCH (21:00)
[2023-07-03 06:35] LABS: Basophils # (auto) 0.04 K/uL (0.00-0.20); Basophils % (auto) 0.4 %; Eosinophils # (auto) 0.28 K/uL (0.00-0.50); Hematocrit (blood only) 40.2 % (42.0-52.0); Hemoglobin 14.1 g/dl (14.0-18.0); Immature Granulocytes # (auto) 0.04 K/uL (0.01-0.20); Immature Granulocytes % (auto) 0.4 %; Lymphocytes # (auto) 2.36 K/uL (1.20-3.40); Lymphocytes % (auto) 25.3 %; Mean Corpuscular Hemoglobin 32.7 pg (25.0-34.0); Mean Corpuscular Hgb Conc 35.1 g/dL (32.0-36.0); Mean Corpuscular Volume 93.3 fL (80.0-100.0); Monocytes # (auto) 0.86 K/uL (0.11-0.59); Monocytes % (auto) 9.2 %; Neutrophils # (auto) 5.73 K/uL (1.40-6.50); Neutrophils % (auto) 61.7 %; Platelet Count 233 K/uL (130-400); RDW Coefficient of Variation 13.6 % (11.5-14.5); Red Blood Count 4.31 M/uL (4.70-6.10); White Blood Count 9.31 K/ul (4.8-10.8)
[2023-07-03 06:52] LABS: BUN Creatinine Ratio 10.6 (10-20); Calcium 8.8 mg/dl (8.6-10.3); Est GFR (African American) 41.4 ml/min; Est GFR (Non-African American) 35.8 ml/min; Magnesium 2.1 mg/dl (1.7-2.4); Potassium 4.1 mmol/L (3.5-5.1)
--- NOTE | 2023-07-03 08:19 | Cardiology Consultation ---
Date of Consultation July 03, 2023 Assessment & Plan (1) Chest pain at rest: (2) ASCVD (arteriosclerotic cardiovascular disease): (3) Left anterior fascicular block: (4) Hypertension: (5) Dyslipidemia, goal LDL below 70: Plan 78-year-old male admitted with atypical chest discomfort. Chest discomfort persists and is reproducible with palpation of the lower third of the sternum. EKGs without acute change. High-sensitivity troponin negative x3. Chest x-ray and CTA of the chest without acute cardiopulmonary findings. Telemetry benign. Resting echocardiography pending. General measures advised. Recommend continuation of patient's prior to arrival cardiac medications. Patient previously scheduled for routine outpatient cardiology follow-up on July 10, 2023 [address]. Johanne Alvarado. Supervising Physician Co-Signing Physician Notes Supervising Physician Attestation: I have personally performed a history and physical examination on the patient. I agree with the physician digital sales assistant's findings and plan as documented with the following additions. Subjective: Patient feeling well at the time of my assessment. Telemetry reveals sinus rhythm in the 60s. Exam: Chest: Well-healed midline sternotomy incision, mild tenderness at the caudal portion of the sternum Cardiovascular regular rhythm, no murmurs, no edema Abdominal: No discomfort reproduced on palpation Data: EKG performed on 07/02 and again today reveals sinus rhythm with left anterior fascicular block, no significant repolarization changes Echocardiogram revealed normal left ventricular systolic function, borderline aortic root dilatation, 3.8 cm in diameter, no significant valvular pathology, normal LV wall motion, LVEF in the range of 55-60% Assessment and Plan: Symptoms atypical in character for angina, serial negative high-sensitivity troponin, normal echocardiogram reassuring -Question if this is musculoskeletal or GI. He is already on appropriate pump inhibitor, consider adding H2 zi. -No further cardiac testing felt to be indicated at this time. Stable from cardiology standpoint for discharge Javed Lemus DO History of Present Illness Reason for Consultation: Chest pain Requesting Physician: Dr. Beltran Attending Physician: Dr. Jim Harvey MD History of Present Illness Mr. Sekou Latham Jr is a 78-year-old male who is being seen at the request of Dr. Ayers. Reason for consultation is chest pain. Mr. Latham awoke on Day and as per his usual routine. He notes getting int he car and going to town, specifically to [place] to buy lottery tickets and walk around on a nice flat ground. He then returned home. It was around this time that he developed epigastric/substernal discomfort that persisted throughout the day. Yesterday, July 02, 2023, he notes "I had it again but not quite as bad and my son told me to go to the hospital. I tried to go to that critical care center in [place] ([facility]) and they were not opened so I called [place] and spoke to the triage nurse who said I had to go to the ER." EKG on presentation was without acute change, revealing normal sinus rhythm at 80 bpm with pulmonary disease pattern, left anterior fascicular block, LVH. EKG this morning also without acute change, revealing normal sinus rhythm at 67 bpm with a left anterior fascicular block. Continuous telemetry monitoring throughout hospitalization reveals sinus is a predominant rhythm with heart rates ranging from the 50s to the 70s, currently in the 60s. High-sensitivity troponin negative x3 at 7.1 then 7.1 then 10.8 pg/mL Chest x-ray revealed stable mild cardiomegaly and bibasilar interstitial thickening, without acute process. CTA of the chest negative for aortic catastrophe or pulmonary emboli, revealing mild pulmonary emphysema with subsegmental bibasilar atelectasis/scarring, a small hiatal hernia, and cysts in the liver measuring up to 11 cm. Past Medical and Surgical History: Presentation to [facility] in July 2019 with chest pressure, diagnostic cardiac catheterization performed by Dr. Nichols in August 18, 2019 revealing multivessel coronary artery disease with heavily calcified coronaries, right dominant anatomy. RCA with multiple 90% lesions. LCx with high-grade stenosis before the takeoff of the second obtuse marginal branch. LAD with 2 eccentric lesions in the mid and distal segment which which are estimated to be 70 and 80%. Status post coronary bypass grafting x 3 , EASON to LAD saphenous vein graft OM saphenous vein graft to PDA for multivessel coronary disease and 34 mm gel weave aortic root repair for a dilated ascending aorta August 31, 2019 Postoperative retrocardiac/pericardial hematoma identified on echocardiogram, but improved on repeat CT scan. Postoperative paroxysmal atrial fibrillation on anticoagulation with warfarin Hypertension Dyslipidemia with poor tolerance to statin, on Repatha and Vascepa Obstructive sleep apnea on CPAP CKD , stage III, proteinuria Emphysema History of tobacco abuse, reformed GERD Irritable bowel syndrome Internal hemorrhoids Tension headaches BPH with LUTS. Depression Carpal tunnel Colonoscopy with polypectomy Left shoulder repair Family History: Positive for CAD in mother and father. Mother also had breast cancer. Social History: reformed smoker having quit approximately 20 to 25 years ago after smoking up to 2 packs/day starting at the age of 13. Former smokeless tobacco user having quit in 2019 Alcohol: Reformed user, previously drinking 2-8 beers most days. No illegal drug use. Retired, previously working at [employer]. Allergies Allergy/AdvReac Type Severity Reaction Status Date / Time morphine AdvReac Intermediate Hypotension, Verified 07/02/23 17:11 "MAKES ME MEAN" Sulfa (Sulfonamide AdvReac Intermediate NAUSEA, Verified 07/02/23 17:11 Antibiotics) FATIGUE Home Medications Medication Instructions Recorded Confirmed Type aspirin 81 mg tablet,delayed 81 mg PO QAM 08/16/19 07/02/23 History release finasteride 5 mg tablet (Proscar) 5 mg PO QAM 08/16/19 07/02/23 History lactobacillus combination no.4 3 3,000 mmu cells PO 3XWK 08/16/19 07/02/23 History billion cell capsule (Probiotic) yaibyamw-id-sovxa 300 mcg-K 60 1 tab PO QAM 08/16/19 07/02/23 History mcg-lycop 600 mcg-lutein 300 mcg tablet (Centrum Silver Men) polyethylene glycol 3350 17 17 g PO DAILY PRN Constipation 08/16/19 07/02/23 History gram/dose oral powder (Miralax) cholecalciferol (vitamin D3) 25 1,000 unit PO QAM 06/19/20 07/02/23 History mcg (1,000 unit) capsule metoprolol succinate 25 mg 25 mg PO HS 06/19/20 07/02/23 History tablet,extended release 24 hr omeprazole magnesium 20 mg 20 mg PO QAM 06/19/20 07/02/23 History tablet,delayed release (Prilosec OTC) tamsulosin 0.4 mg capsule 0.4 mg PO HS 03/23/21 07/02/23 History ezetimibe 10 mg tablet 10 mg PO QAM 08/13/21 07/02/23 History isosorbide mononitrate 30 mg 30 mg PO QAM 03/07/22 07/02/23 History tablet,extended release 24 hr nitroglycerin 0.4 mg sublingual 0.4 mg sublingual DIRECTED PRN 03/07/22 07/02/23 History tablet Chest Pain acetaminophen 325 mg tablet 650 mg PO HS 01/20/23 07/02/23 History (Tylenol) alirocumab 75 mg/mL subcutaneous 75 mg subcut .[id number] 07/02/23 07/02/23 History pen injector (Praluent Pen) hydrochlorothiazide 25 mg tablet 25 mg PO 2XWK 07/02/23 07/02/23 History lisinopril 5 mg tablet 5 mg PO DAILY 07/02/23 07/02/23 History oxycodone-acetaminophen 5 mg-325 1 tab PO Q4H PRN Pain 07/02/23 07/02/23 History mg tablet Patient History Medical History Aneurysm, ascending aorta HX OF - 4.5 cm per [facility] echo 08/11/19...SURGICALLY REPAIRED Benign prostatic hyperplasia CAD (coronary artery disease) Dyslipidemia Esophageal dysmotility (02/23/12) PT DENIES , DENIES TROUBLE SWALLOWING GERD (gastroesophageal reflux disease) Hypertension Obesity JEFFERSON (obstructive sleep apnea) CPAP SOB (shortness of breath) on exertion PT HX INHALER - REPORTS WAS UNABLE TO AFFORD AND INHALER D/C'D...CPAP USE...PT REPORTS THINKS SOB MAY BE RELATED TO AMOUNT OF BLOOD PRESSURE MEDICINE HE TAKES AND PLANS TO DISCUSS WITH Surgical History History of cataract surgery RT History of colonoscopy History of removal of cyst BEHIND EAR History of shoulder surgery Hx laparoscopic cholecystectomy (08/14/21) Laparoscopic Cholecystectomy Dr. Daniels 08/14/21 S/P ascending aortic aneurysm repair Aug 2019 in [place] (TRIPLE BYPASS AND ANEURYSM REPAIR 1 SURGICAL PROCEDURE) S/P CABG (coronary artery bypass graft) Aug 2019 in [place] (TRIPLE BYPASS AND ANEURYSM REPAIR 1 SURGICAL PROCEDURE) Family History Mother Heart disease Breast cancer Father Heart disease Social History Smoking Status: Former smoker Tobacco Type: Cigarettes Second Hand Exposure: No; Do You Dip or Chew Tobacco: No; Hx Alcohol Use: No Hx Substance Use: No Preferred Language: Maori Communication Ability: Effective Subsorter Required: No Beliefs That Will Affect Care: None marital status: Current Living Situation: Spouse and Family Current Living Situation Comment: Grandson - 17 y/o current occupational status: retired current occupation: Retired Feels Safe at Home: Yes Safety Concerns: Feels Safe At This Time Assistive Devices: Cane and CPAP Review of Systems Review of Systems: Complete Review of Systems: Constitutional: No fevers, night sweats, or chills. HEENT: No amaurosis fugax. Pulmonary: JEFFERSON. Emphysema. Cardiac: See above. GI/Abd: No current reflex, followed by [facility]. No dysphagia. No melana or hematochezia. Liver: Cysts. Kidneys: CKD. Vascular: Ascending aortic aneurysm. No claudication. No history of AAA. Hematologic: No coagulation disorder, anemia, or abnormal bleeding. Musculoskeletal: Arthritis. Ambulation is via a cane. Skin: Negative. Neurologic: Denies history of TIA or CVA. Male : BPH. Luts. Nocturia. Endocrine: Prediabetes. Complete Review of Systems is as stated above, negative, or noncontributory. Physical Exam Physical Exam: General: A&Ox3. NAD. HENT: Normocephalic. Atraumatic. Eyes: PER. Conjunctiva pink, sclera clear. Neck: No carotid bruits. No JVD. Chest: Reproducible discomfort involving the lower third of the sternum and surrounding area Heart: RRR. No murmur. Lungs: Diminished. Decreased. Clear. No wheeze. Abdomen: +BS Mild epigastric tenderness with palpation. Soft. No organomegaly. Extremities: No clubbing, cyanosis, or edema. Limited neurological examination is without focal deficits. Pulses: radial=2/4, posterior tibial=2/4. Results & Data Vital Signs (Past 12 Hours) Vital Signs Temp Pulse Pulse Pulse Resp BP BP 07/03/23 07:54 37.1 C 65 19 143/77 H 07/03/23 04:08 66 07/03/23 03:09 36.4 C L 67 18 147/93 H 07/02/23 23:27 73 07/03/23 01:00 58 L 20 07/03/23 00:30 62 23 07/03/23 00:00 67 19 112/77 07/03/23 00:16 63 18 112/77 07/02/23 23:30 71 23 126/77 07/02/23 22:30 66 21 114/62 07/02/23 22:00 74 26 H 122/66 07/02/23 21:31 75 26 H 153/80 H 07/02/23 21:01 77 24 153/91 H 07/02/23 20:31 79 19 131/72 Pulse Ox O2 Del Method 07/03/23 07:54 96 Room Air 07/03/23 04:08 07/03/23 03:09 98 Room Air 07/02/23 23:27 07/03/23 01:00 94 07/03/23 00:30 95 07/03/23 00:00 94 07/03/23 00:16 94 Room Air 07/02/23 23:30 95 07/02/23 22:30 93 Room Air 07/02/23 22:00 93 Room Air 07/02/23 21:31 96 Room Air 07/02/23 21:01 94 Room Air 07/02/23 20:31 97 Room Air Laboratory Results Cardiac Enzymes 07/02/23 07/02/23 07/03/23 Range/Units 15:07 17:02 05:39 AST 63 H (13-39) U/L Troponin I High Sens 7.1 7.1 10.8 (0-20) pg/ml Coagulation 07/02/23 Range/Units 15:07 PT 10.3 (9.0-12.0) Seconds APTT 26.1 (21.0-31.0) Seconds CBC 07/02/23 07/03/23 Range/Units 15:07 05:39 WBC 10.56 9.31 (4.8-10.8) K/ul RBC 4.51 L 4.31 L (4.70-6.10) M/uL Hgb 14.8 14.1 (14.0-18.0) g/dl Hct 42.3 40.2 L (42.0-52.0) % Plt Count 254 233 (130-400) K/uL Neut # (Auto) 7.20 H 5.73 (1.40-6.50) K/uL Lymph # (Auto) 2.22 2.36 (1.20-3.40) K/uL Russell # (Auto) 0.84 H 0.86 H (0.11-0.59) K/uL Eos # (Auto) 0.21 0.28 (0.00-0.50) K/uL Baso # (Auto) 0.06 0.04 (0.00-0.20) K/uL Comprehensive Metabolic Panel 07/02/23 07/03/23 Range/Units 15:07 05:39 Sodium 135 L 137 (136-145) mmol/L Potassium 4.2 4.1 (3.5-5.1) mmol/L Chloride 103 104 (98-107) mmol/L Carbon Dioxide 23 22 (21-32) mmol/L BUN 20 19 (6-23) mg/dl Creatinine 1.85 H 1.79 H (0.6-1.4) mg/dl Glucose 123 H 101 H (70-99(Fasting)) mg/dl Calcium 9.0 8.8 (8.6-10.3) mg/dl AST 63 H (13-39) U/L ALT 78 H (7-52) U/L Alkaline Phosphatase 89 (34-104) U/L Total Protein 7.3 (6.0-8.3) gm/dl Albumin 4.4 (3.4-5.0) gm/dl Intake and Output 07/02/23 07/03/23 07/03/23 22:59 06:59 14:59 Intake Total 500 / 500 Balance 500 / 500 Intake: IV 500 / 500 Sodium Chloride 0.9% 500 ml @ 500 / 500 999 mls/hr IV .Q31M ONE Rx#: [id number] Other: Other Intake Source npo Weight 100.5 kg Weight Measurement Method Standing Scale
[2023-07-03] MEDS ORDERED: lisinopril 5 MG TAB PO SCH (09:00)
[2023-07-03] MEDS ORDERED: FINASTERIDE 5 MG TAB PO SCH (09:00)
[2023-07-03] MEDS ORDERED: ASPIRIN 81 MG ECTAB PO SCH (09:00)
[2023-07-03] MEDS ORDERED: ADVANCED PROBIOTIC 1250 MG CAPSULE PO SCH (09:00)
[2023-07-03] MEDS ORDERED: ISOSORBIDE MONO EXTENDED REL 30 MG TABCR PO SCH (09:00)
[2023-07-03] MEDS ORDERED: CEROVITE ADV FORMULA TAB PO SCH (09:00)
[2023-07-03] MEDS ORDERED: FAMOTIDINE 20 MG in SYRINGE 3 ML IV SCH (09:00)
[2023-07-03] MEDS ORDERED: EZETIMIBE 10 MG TAB PO SCH (09:00)
[2023-07-03] MEDS ORDERED: PANTOprazole 40 MG TAB PO SCH (09:00)
[2023-07-03] MEDS ORDERED: CHOLECALCIFEROL 1,000 UNITS 25 MCG TAB PO SCH (09:00)
--- NOTE | 2023-07-03 12:25 | Discharge Summary ---
Date of Service July 03, 2023 Admission HPI Per Admitting Provider 78-year-old male with past med history significant for dyslipidemia, prediabetes, obstructive sleep apnea on CPAP, history of ascending aortic aneurysms s/p repair, aortic root dilatation, CAD s/p CABG, history of CHF history of paroxysmal atrial fibrillation GERD irritable syndrome, chronic constipation, vitamin D deficiency, BPH, chronic kidney stage III, statin intolerance, depression presents with chest pain and epigastric pain. Patient since yesterday is having lower chest pain stabbing type including epigastric region. The pain was all day yesterday but then got resolved. Today woke up and he went to grocery stores and came back. After coming back again he developed same pain. Associated with nausea, mild dizziness and shortness of breath. He also had mild sweating. In the ER received maalox and aspirin. Currently pain improved while resting but states if he moves around the pain comes back. Denies any headache currently. Vision is okay. No earache. No runny nose. No sore throat. No cough. No dysphagia. Currently no abdominal pain. Normal bowel and bladder movements. Currently resting comfortably and hemodynamically stable. Past medical history as mentioned above Past surgical history ascending aortic graft bypass, CABG, carpal tunnel surgery, colonoscopy, EGD, left shoulder repair. Social history quit smoking 1969 and smoked 1 pack a day for 25 years no alcohol use. No drug use. Family history mother had breast cancer and heart disease. Father had heart disease. Admission Exam Per Admitting Provider General- Not in distress Head- atraumatic Eyes- PERRL. ENT- oropharynx clear Neck- supple, no JVD. Lungs- clear to auscultation no wheezing or crackles. Heart- regular rate and rhythm; no murmur, no gallop. Abdomen- normal bowel sounds, soft, nontender, no distension. Extremities- no pretibial edema, no erythema seen. Neuro- alert, oriented x 3; PERRL, no facial palsy; no dysarthria; non focal. Skin- warm & dry Principal Diagnosis Chest pain, MSK etiology. Discharge Exam Constitutional: WD/WN, vitals as above, NAD, sitting up in bed, pleasant, conversing easily Respiratory: normal respiratory effort, lungs clear to auscultation, no wheeze, rales, rhonchi. Normal insp/exp effort, no accessory muscle use Cardiovascular: RRR, no murmur, no edema Vessels: no JVD or carotid bruit Chest: normal inspection of chest Abdomen: normal bowel sounds, soft, nontender, no hepatosplenomegaly Musculoskeletal: no cyanosis or clubbing, extremities motor strength 5/5 Skin: no rashes, warm and dry normal turgor Neurologic: PERRL, EOMI, accommodation nl, no face palsy, no dysarthria CN's II- XI intact bilaterally and moves all extremities Psychiatric: A+Ox3, euthymic affect Discharge Data Allergies Allergy/AdvReac Type Severity Reaction Status Date / Time morphine AdvReac Intermediate Hypotension, Verified 07/02/23 17:11 "MAKES ME MEAN" Sulfa (Sulfonamide AdvReac Intermediate NAUSEA, Verified 07/02/23 17:11 Antibiotics) FATIGUE Consultations 07/02/23 18:49 ED Decision to Admit Stat 07/03/23 08:00 Consult Cardiology Routine Ordered Studies 07/02/23 16:53 CT angio chest PE protocol Stat Hospital Course (1) Chest pain: 78-year-old male with past med significant for dyslipidemia, prediabetes, obstructive sleep apnea on CPAP, history of ascending aortic aneurysms s/p repair, aortic root dilatation, CAD s/p CABG, history of CHF history of paroxysmal atrial fibrillation, GERD, irritable syndrome, chronic constipation, vitamin D deficiency, BPH, chronic kidney stage III, statin intolerance, depression presents with chest pain and epigastric pain. EKG done in admission showed normal sinus rhythm with nonspecific ST and T wave changes. High sensitive troponin was negative. Chest x-ray showed stable mild cardiomegaly; no acute process. Chest CTA did not show PE/pleural effusion or lymphadenopathy. Echocardiogram was done which showed EF of 55 to 60% with grade 1 diastolic dysfunction. Left ventricular wall motion and systolic function is normal. Cardiology evaluated the patient; recommended that chest pain is likely due to MSK etiology. Patient to follow-up with cardiology and PCP for next week No changes were made to the medications. Please note the above document was generated using voice recognition software. It may contain grammatical, syntax or spelling errors. Any formal questions or concerns about the content, text or information contained within the body of this dictation should be directly addressed to the provider for clarification Total Time Total Time Spent Total Time Spent (In Minutes): 45 Total Time Includes: Examination of the Patient, Discharge Planning, Medication Reconciliation, Communication With Other Providers and Other Discharge Plan Discharge Items Patient Disposition: Home - Self-Care Reason For Visit: CHEST PAIN Discharge Diagnosis: Chest pain, ACS rule out. Activity: Resume your previous activity Non-emergency contact: Primary Care Provider Call non-emergency contact if: you have any medication questions and your symptoms worsen Follow-up/Referrals: Joe Lopez MD [Primary Care Provider] - (Date & Time 07/09/2023 10:20 AM Provider Joe Lopez MD Department [facility] ) Johanne Alvarado PA-C [Physician Steam Generating Powerplant Mechanic] - (Date & Time 07/10/2023 10:30 AM Provider Johanne Alvarado PA-C Department Cardiology, [facility] ) Diet: Regular Addtl Attending Provider Instructions: You were admitted to the hospital with chest pain. Work-up was done to rule out heart attack. You were evaluated by cardiology during the hospitalization. The likely cause for the chest pain is musculoskeletal . You can take Tylenol as needed for pain control. Continue all your other medication as prescribed before. Pending Studies at Discharge: No Stand-Alone Forms: My [facility] [employer], Smoking Cessation Medications and DC Order Prescriptions: Continued aspirin 81 mg Tablet,Delayed Release (Dr/Ec) 81 mg PO QAM polyethylene glycol 3350 [Miralax] 17 gram/dose Powder 17 g PO DAILY PRN (Reason: Constipation) finasteride [Proscar] 5 mg tablet 5 mg PO QAM Centrum Silver Men 300-600-300 mcg Tablet 1 tab PO QAM Probiotic 3 billion cell Capsule 3,000 mmu cells PO 3XWK Rx Instructions: Saturday,Saturday,Saturday metoprolol succinate 25 mg tablet extended release 24 hr 25 mg PO HS omeprazole magnesium [Prilosec OTC] 20 mg Tablet,Delayed Release (Dr/Ec) 20 mg PO QAM cholecalciferol (vitamin D3) 25 mcg (1,000 unit) Capsule 1,000 unit PO QAM tamsulosin 0.4 mg Capsule 0.4 mg PO HS ezetimibe 10 mg tablet 10 mg PO QAM isosorbide mononitrate 30 mg tablet extended release 24 hr 30 mg PO QAM nitroglycerin 0.4 mg tablet, sublingual 0.4 mg sublingual DIRECTED PRN (Reason: Chest Pain) oxycodone-acetaminophen 5-325 mg Tablet 1 tab PO Q4H PRN (Reason: Pain) lisinopril 5 mg Tablet 5 mg PO DAILY hydrochlorothiazide 25 mg Tablet 25 mg PO 2XWK Praluent Pen 75 mg/mL Pen Injector 75 mg SUBCUT .[id number] acetaminophen [Tylenol] 325 mg Tablet 650 mg PO HS Discharge Orders: Discharge Order (Routine); Ordered 07/03/23 Ordered By: Jim Harvey Admission Data Admit Date/Time: 07/02/23 19:58 Attending Provider: Jim Harvey Admit Provider: Tristen Beltran Primary Care Provider: Joe Lopez Other Providers: Tristen Beltran ; Nereida Maurice ; Javed Lemus ; Delvin Jordan ; Nacho Weaver ; Wilman Nichols ; Joe Beckman ; Johanne Alvarado ; Vidya Somers ; Nereida Cobb ; Sourav Rader ; Cam Dejesus ; Sekou Valadez Other Interventions: Discharge Summary Assessment (RN) Last Done: 07/03/23 12:59
--- NOTE | 2023-07-03 16:04 | Electrocardiogram Report ---
Test Reason : Blood Pressure : / mmHG Vent. Rate : 080 BPM Atrial Rate : 080 BPM P-R Int : 152 ms QRS Dur : 100 ms QT Int : 394 ms P-R-T Axes : 037 -52 096 degrees QTc Int : 454 ms Normal sinus rhythm Poor R wave progression, consider anterior ME vs. lead placement vs. LVH Left anterior fascicular block Left ventricular hypertrophy with repolarization abnormality Abnormal ECG When compared with ECG of 20-JAN-2023 16:49, Incomplete right bundle branch block is no longer Present Confirmed by Rosendo Day ([id number]) on 07/03/2023 4:04:20 PM Referred By: Confirmed By:Nabil Day
[2023-07-04] MEDS ORDERED: hydroCHLOROthiazide 25 MG TAB PO SCH (09:00)
--- NOTE | 2023-07-04 17:59 | Electrocardiogram Report ---
Test Reason : Blood Pressure : / mmHG Vent. Rate : 067 BPM Atrial Rate : 067 BPM P-R Int : 164 ms QRS Dur : 108 ms QT Int : 432 ms P-R-T Axes : 067 -49 102 degrees QTc Int : 456 ms Normal sinus rhythm Left anterior fascicular block Nonspecific ST abnormality Abnormal ECG When compared with ECG of 02-JUL-2023 14:59, (unconfirmed) T wave amplitude has decreased in Lateral leads Confirmed by Rosendo Day ([id number]) on 07/04/2023 5:58:49 PM Referred By: REFERRED SELF Confirmed By:Nabil Day
== END 2023-07-03 14:23 | disposition home or self-care (01) ==
LOC: ED 14:50 → EDINP 14:50 → SUATTDRO 19:58 → 2W 20:26